=== PATIENT | female | born 1930 | race Caucasian/White ===

== ENCOUNTER 2018-09-09 12:36 | Emergency (ER) | payer MEDICARE ==
--- OUTSIDE RECORDS SUMMARY | 2018-09-09 12:54 | XMS REPORT | Continuity of Care Document ---
:1930 External Reference #:[id number] Author Name Brad Herrera M.D. Address [address] [facility] [place] [address] Care Team Providers Name Role Phone Corky Finn M.D. Primary Care Physician Unavailable Payers Date Identification Numbers Payment Provider Subscriber Policy Number: [id number] [employer] Lynette Hess PayID: [id number] [address] [place] [address] Problems Active Problems Provider Date Hearing problem Onset: Note: LEFT EAR Dyspnea Onset: Acid reflux Onset: Essential hypertension Onset: Rheumatoid arteritis Onset: Osteoporosis Onset: Headache Onset: Anxiety Onset: Pure hypercholesterolemia Onset: Atrial fibrillation Onset: Kidney stone Onset: Ocular hypertension Brad Herrera M.D. Onset: 09/07/2014 Pseudophakia Brad Herrera M.D. Onset: 09/07/2014 Benign neoplasm of choroid Brad Herrera M.D. Onset: 09/07/2014 Spinal stenosis Onset: Low back pain Onset: Degeneration of lumbar intervertebral disc Onset: Bilateral primary open angle glaucoma Brad Herrera M.D. Onset: 09/06/2017 FH: Glaucoma Brad Herrera M.D. Onset: 09/06/2017 Family History Date Family Member(s) Observation Comments General Heart Disease First Daughter Glaucoma First Sister Glaucoma Second Sister Glaucoma Social History Type Date Description Comments Sex Unknown Marital Status 10/2013 Legal Status: Occupation [employer] Work Status Retired ETOH Use Denies alcohol use Tobacco Use Start: Unknown Patient has never smoked Recreational Drug Use Denies Drug Use Smoking Status Reviewed: 08/23/18 Patient has never smoked Allergies, Adverse Reactions, Alerts Active Allergies Reaction Severity Comments Date Codeine 09/04/2014 Medications Active Medications SIG Qnty Indications Ordering Provider Date Aspirin Unknown 81mg Tablets Fiber Unknown Powder Simvastatin Unknown 20mg Tablets Refresh 2-3 times daily Brad Herrera, M.D. Metoprolol Succinate ER Maghaydah, Qutaybeh M.D. 25mg Tablets ER 24HR Benadryl Allergy as needed Unknown 25mg Tablets Eliquis Unknown 5mg Tablets Levothyroxine Sodium Unknown 25mcg Tablets Biotin Unknown 5mg Capsules History Medications Pred Forte One drop three 5ml H40.1131 Brad Herrera, 09/06/2017 - 1% times a day for M.D. 10/29/2017 Suspension three days OD, then three times a day for three days OS. Only after procedure. Fish Oil Brad Herrera, 09/04/2014 - 306mg M.D. 09/09/2017 Capsules Plavix Unknown - 75mg Tablets 09/06/2014 Valium as needed Unknown - 5mg Tablets 09/09/2017 Xarelto Unknown - 15mg 09/05/2017 Digoxin Unknown - 01/03/2016 Hydrocodone-Acetami Tish, Angela - nophen N.P. 09/09/2017 5-325mg Tablets Vital Signs Date Vital Result Comment 09/17/2017 3:41pm BP Systolic 136 mmHg BP Diastolic 72 mmHg Heart Rate 72 /min Respiratory Rate 15 /min 09/10/2017 12:49pm BP Systolic 132 mmHg BP Diastolic 74 mmHg Heart Rate 72 /min Respiratory Rate 18 /min Procedures Date Code Description Status 09/17/2017 74729 Trabeculoplasty By Laser Surgery Completed 09/10/2017 36500 Trabeculoplasty By Laser Surgery Completed 09/06/2017 07812 Scanning Computerized Ophthalmic Diagnostic Imag Posterior Completed Seg On 09/06/2017 91813 Visual Field Exam Extended Completed 09/06/2017 01589 Est Patient Comprehensive Exam Completed 12/21/2016 48422 Est Patient Intermediate Exam Completed 09/11/2016 00003 Scanning Computerized Ophthalmic Diagnostic Imag Posterior Completed Seg On 09/11/2016 19840 Visual Field Exam Extended Completed 09/11/2016 90299 Est Patient Intermediate Exam Completed 01/04/2016 30289 Fundus Photography With Interpretation And Report Completed 01/04/2016 51097 Est Patient Comprehensive Exam Completed 08/02/2015 93571 Scanning Computerized Ophthalmic Diagnostic Imag Posterior Completed Seg On 08/02/2015 29753 Visual Field Exam Extended Completed 08/02/2015 85934 Est Patient Comprehensive Exam Completed 09/07/2014 42564 Est Patient Intermediate Exam Completed 09/07/2014 29204 Determination Of Refractive State Completed 09/07/2014 76026 Gonioscopy Completed 12/09/2013 15839 Scanning Computerized Opthalmic Diagnostic Posterior Seg Completed Retina 12/09/2013 94588 Scanning Computerized Ophthalmic Diagnostic Imag Posterior Completed Seg On 12/09/2013 12259 Determination Of Refractive State Completed 12/09/2013 93507 Est Patient Comprehensive Exam Completed 12/05/2013 24765 Visual Field Exam Extended Completed 12/19/2012 64373 Est Patient Intermediate Exam Completed 09/03/2012 75763 Fundus Photography With Interpretation And Report Completed 09/03/2012 30872 Visual Field Exam Extended Completed 09/03/2012 70145 Est Patient Comprehensive Exam Completed 10/18/2011 44918 Visual Field Exam Extended Completed 08/15/2011 72400 Scanning Computerized Ophthalmic Diagnostic Imag Posterior Completed Seg On 08/15/2011 04029 Determination Of Refractive State Completed 08/15/2011 48496 Est Patient Comprehensive Exam Completed 10/04/2010 67588 Est Patient Intermediate Exam Completed 10/04/2010 33708 Visual Field Exam Extended Completed 01/05/2010 46457 Scanning Laser W/Interp And Report Completed 01/05/2010 66672 Determination Of Refractive State Completed 01/05/2010 42888 Est Patient Comprehensive Exam Completed 08/10/2009 34265 Visual Field Exam Extended Completed 08/10/2009 59693 Est Patient Intermediate Exam Completed 01/13/2009 15471 Scanning Laser W/Interp And Report Completed 01/13/2009 07302 Determination Of Refractive State Completed 01/13/2009 80393 Est Patient Comprehensive Exam Completed 08/19/2008 75558 Fundus Photography With Interpretation And Report Completed 08/19/2008 03673 Visual Field Exam Extended Completed 08/11/2008 65711 Est Patient Intermediate Exam Completed 09/11/2007 15664 Extracapsular Cataract Extraction W/Intraocular Lens Completed 09/05/2007 26129 Ophthalmic Biometry Completed 09/04/2007 86839 Extracapsular Cataract Extraction W/Intraocular Lens Completed 08/27/2007 57458 Ophthalmic Biometry Completed 08/22/2006 79774 Visual Field Exam Extended Completed 08/22/2006 83743 Determination Of Refractive State Completed 08/22/2006 09106 Est Patient Comprehensive Exam Completed 11/22/2005 48734 Visual Field Exam Extended Completed 09/20/2005 69035 Cancelled Appointment Completed 2005 66614 Determination Of Refractive State Completed 2005 06388 Est Patient Comprehensive Exam Completed 12/09/2004 81676 Gonioscopy Completed 12/09/2004 40043 Est Patient Intermediate Exam Completed 10/05/2004 01851 Scanning Laser W/Interp And Report Completed 10/05/2004 96024 Visual Field Exam Extended Completed 10/05/2004 24262 Pachymetry Completed 09/02/2004 90858 Fundus Photography With Interpretation And Report Completed 09/02/2004 65576 Determination Of Refractive State Completed 09/02/2004 86728 New Patient Comprehensive Exam Completed Encounters Type Date Location Provider Dx Diagnosis Office Visit 10/30/2017 Brad Mason, H40.1131 Primary 12:00p levi NG M.D. 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 Sclerosis / Cataract Plan of Treatment 08/23/2018 - Brad Herrera M.D.H40.4461 Primary open-angle glaucoma, bilateral, mild stageComments:Smoking can increase the risk of developing or worsening any eye related disease, as well as affect your overall health. If you are a smoker, we strongly recommend that you quit.If you are not a smoker, we strongly recommend that you do not start. Your glaucoma is stable at this time.Your eye pressure is within an acceptable range, and your testing does not show any further deterioration at this time. Please continue your treatment.Follow up:6 Month Follow Up IOP Check Diagnostic Refraction At your next visit, we are not planning to dilate your eyes. However, if you have any changes in your vision or new symptoms, there are certain situations that require us to dilate your eyes. If Dr. Herrera requests any additional testing, that may require extra time. If you have any questions before your next appointment, please call our office at .D48.116 Family history of glaucomaComments:Having a family history of glaucoma is a risk factor for the possibility of you developing glaucoma.However, having a family history does not mean you show any signs of glaucoma now, or will develop glaucoma in the future. It is important that you have a dilated eye exam annually, because even thoughglaucoma is a treatable disease, it does not present itself with any signs or symptoms.Z96.1 Presence of intraocular lensComments:The artificial lens implants in both eyes appear to be stable at this time.D31.31 Benign neoplasm of right choroidComments:You have a nevus in your right eye. This is similar to a mole on your skin. Typically this will not change, but I will monitor it.
--- OUTSIDE RECORDS SUMMARY | 2018-09-09 12:54 | XMS REPORT | Continuity of Care Document ---
:1930 External Reference #:[id number] Author Name Indiana Dupont, BRYAN Address [address] [facility] [place] [address] Care Team Providers Name Role Phone Corky Finn Care Team Information Veterinary Assistant Technician Unavailable Corky Finn Primary Care Physician Unavailable Payers Date Identification Numbers Payment Provider Subscriber Effective: 2017 Policy Number: [id number] [employer] Ppo Namita Hess Group Number: [id number] [id number] PayID: [id number] [place] [address] Problems Active Problems Provider Date Hyperlipidemia Corky Finn M.D. Onset: 10/18/2005 Arthropathy Corky Finn M.D. Onset: 10/18/2005 Benign essential hypertension Corky Finn M.D. Onset: 10/18/2005 Disorder of cardiovascular system Corky Finn M.D. Onset: 01/17/2006 Anxiety state Corky Finn M.D. Onset: 01/17/2006 Gastroesophageal reflux disease Corky Finn M.D. Onset: 01/17/2006 Cramp in limb Corky Finn M.D. Onset: 01/17/2006 Allergic rhinitis Corky Finn M.D. Onset: 09/10/2006 Constipation Corky Finn M.D. Onset: 12/26/2010 Low back pain Corky Finn M.D. Onset: 11/14/2011 Insomnia Corky Finn M.D. Onset: 11/14/2011 Enthesopathy of hip region Corky Finn M.D. Onset: 12/12/2011 Arthralgia of the lower leg Corky Finn M.D. Onset: 12/12/2011 Otolith disease Corky Finn M.D. Onset: 08/06/2012 Acute sinusitis Corky Finn M.D. Onset: 08/06/2012 Difficulty breathing Corky Finn M.D. Onset: 08/06/2012 Atrial fibrillation Corky Finn M.D. Onset: 10/27/2013 Solitary sacroiliitis Corky Finn M.D. Onset: 10/27/2013 Acute cholecystitis Corky Finn M.D. Onset: 01/06/2014 Hematuria syndrome Corky Finn M.D. Onset: 08/07/2014 Left lower quadrant pain Corky Finn M.D. Onset: 08/07/2014 Essential hypertension ALEX Estrella Onset: 10/21/2016 Otalgia Corky Finn M.D. Onset: 02/02/2017 Chronic atrial fibrillation Corky Finn M.D. Onset: 02/02/2017 Hypothyroidism Corky Finn M.D. Onset: 02/02/2017 Lumbar radiculopathy Corky Finn M.D. 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 Onset: 04/12/2018 Social History Type Date Description Comments Sex Unknown Marital Status Patient is Living Situation Patient lives alone, is going to move in with her granddaughter. Occupation Retired Tobacco Use Start: Unknown Nonsmoker ETOH Use Rare Tobacco Use Start: Unknown Patient has never smoked Allergies, Adverse Reactions, Alerts Active Allergies Reaction Severity Comments Date Codeine itching Darvocet-N 100 Itching 10/15/2008 Medications Active Medications SIG Qnty Indications Ordering Provider Date Doxycycline Hyclate 1 by mouth twice 14caps R05 Indianalawrence Brewster 09/05/2018 a day for cough BRYAN Dupont 100mg Capsules Valium 1 at at bedtime 30tabs F41.9 Corky Finn, 10/21/2016 5mg Tablets as needed M.D. G25.81 Synthroid 1 by mouth every 90tabs E03.8 Corky Finn, 07/20/2016 25mcg Tablets day M.D. Nitrostat 1 sl as needed, 25tabs 429.2 Corky Finn, 11/10/2014 0.4mg Tablets Sub repeat every 5 M.D. minutes up to three tabs, call 911 Fiber 1 po bid Unknown Tablets Biotin 1 po qd Unknown Tablets Eliquis take one tablet by Unknown 5mg Tablets mouth twice a day Benadryl Allergy 1 by mouth prn if Unknown 25mg needed repeat Tablets 3-4hrs after Toprol XL 1/2 po bid Unknown 25mg Tablets ER 24HR Aspirin 1 by mouth every Unknown 81mg Tablets day Simvastatin take one tablet by Unknown 20mg Tablets mouth at bedtime Fish Oil 1 po qd Unknown 1200mg Capsules History Medications Doxycycline Hyclate 1 by mouth twice 20caps R05 Corky Finn, 2018 - a day for cough M.D. 09/05/2018 100mg Capsules Benzonatate take 1 capsule by 30caps R05 Corky Finn, 04/12/2018 - 100mg mouth three times M.D. 09/05/2018 Capsules daily as needed for cough Azithromycin take 2 tablets by 6tabs R0Daphne Winston, 01/24/2018 - 250mg mouth today then [facility] 04/10/2018 Tablets take 1 tablet daily for next 4 days Betamethasone apply to affected 30gm L23.7 Indiana C. 02/08/2017 - Valerate skin twice daily BRYAN Dupont 11/07/2017 0.1% Cream for 2 weeks. Azithromycin take 2 tablets by 6tabs R0Daphne Winston, 10/21/2016 - 250mg mouth today then [employer]EL[employer] OPER[employer] 11/06/2016 Tablets take 1 tablet daily for next 4 days Hydrocodone-Acetamino 1 by mouth four 60tabs M54.5 Corky Finn, 2016 - phen times a day as M.D. 09/05/2018 5-325mg Tablets needed pain Cyclobenzaprine HCL 1 by mouth every 45tabs M54.5 Lucille Tish, 2015 - 5mg 6-8h during the [facility] 11/07/2017 Tablets day, 2 by mouth at bedtime as needed Amitriptyline HCL take 1 to 2 60tabs G47.09 Lucille Winston, 10/14/2015 - 10mg tablets by mouth [facility] 01/04/2016 Tablets at bedtime Hydrocodone-Acetamino 1 po qid prn pain 60tabs Corky Finn, 2014 - phen M.D. 10/14/2015 5-325mg Tablets Valium 1-2 three times a 180tabs M54.5 Lucille Winston, 10/26/2014 - 5mg Tablets day as needed [facility] 08/02/2016 Ciprofloxacin HCL 1 by mouth twice 20tabs Corky Finn, 08/11/2014 - 250mg a day M.D. 09/16/2014 Tablets Hydrocodone/Acetamino 1 po qid prn pain 60tabs Corky Finn, 2013 - phen M.D. 01/13/2015 5-325mg Tablets Hydrocodone/Acetamino 1-2 po qhs prn 60tabs Corky Finn, 09/18/2012 - phen pain M.D. 10/27/2013 5-500mg Tablets Meclizine HCL 1-2 tid prn 40tabs 386.19 Corky Finn, 08/06/2012 - 12.5mg dizziness or M.D. 10/27/2013 Tablets nausea Amoxicillin/Potassium 1 po bid 20tabs 461.8 Corky Finn, 08/06/2012 - Clavulanate M.D. 12/06/2012 500-125mg Tablets Melatonin CR 1 hs Corky Finn, 12/12/2011 - 3mg M.D. 12/06/2012 Tablets ER Hydrocodone/Acetamino 1-2 po qhs prn 60tabs Corky Finn, 12/12/2011 - phen pain M.D. 09/18/2012 5-325mg Tablets Medrol Dosepak as directed 1tabs Corky Finn, 12/12/2011 - 4mg M.D. 08/06/2012 Tablets Physical Therapy treatment and Corky Finn, 12/12/2011 - evaluation low M.D. 12/06/2012 back, rt hip and knee pain Gabapentin take 1 to 3 60caps Corky Finn, 11/14/2011 - 100mg capsules at M.D. 12/12/2011 Capsules bedtime for pain Prevacid OTC 1 po qd 530.81 [facility] 08/05/2009 - 15mg [facility] 10/14/[address] Kinney Nitroglycerin as directed 25tabs 429.2 Corky Finn, 01/07/2009 - 0.4mg M.D. 11/10/2014 Tablets Sub Macrobid 1 po bid 20caps Corky Finn, 01/01/2008 - 100mg Capsules M.D. 10/15/2008 Clotrimazole apply to affected 30gm Corky Finn, 01/01/2008 - 1% Cream area bid M.D. 08/05/2009 Cipro 1 PO bid X 10D 20tabs Lucille Winston, 11/22/2007 - 250mg Tablets [employer] 01/01/2008 Prevacid 1 po qd 90caps 530.81 Lucille Winston, 11/20/2007 - 30mg Capsules [employer]PERATOR 08/05/2009 Plavix 1 po qd 90tabs 429.2 Corky Finn, 08/28/2007 - 75mg Tablets M.D. 01/06/2014 Vytorin 1 po qd 90tabs 272.4 Corky Finn, 08/08/2007 - 10-80mg Tablets M.D. 11/14/2011 Prilosec-OTC 1 PO qd 30tabs Zita Aung, 05/07/2007 - 20mg Afnp-C 08/08/2007 Tablets Aciphex 1 tab qd 30tabs Zita Aung, 01/15/2007 - 20mg Tablets Afnp-C 05/07/2007 Quinine Sulfate 1 po qd prn 30tabs Zita Aung, 01/15/2007 - 260mg Afnp-C 08/28/2007 Tablets Ciprofloxacin 1 Tab bid X 7 14tabs 599.0 Zita Aung, 11/29/2006 - 250mg Days Afnp-C 12/06/2006 Tablets Plavix 1 po qd 0tabs [facility] 09/10/2006 - 75mg Tablets [facility] 09/10/2006 [place] Prevacid 1 po qd 0caps [facility] 09/10/2006 - 30mg Capsules [facility] 01/15/2007 [place] Cozaar 1 PO qd 0tabs [facility] 09/10/2006 - 25mg Tablets [facility] 08/28/2007 [place] Vytorin 1 po qhs 0tabs [facility] 02/01/2006 - 10mg;40 mg [facility] 08/08/2007 Tablets [place] Lisinopril 1 po qhs 30tabs Corky Finn, 01/17/2006 - 2.5mg M.D. 09/10/2006 Tablets Toprol XL 1 po bid 90tabs 401.1 Corky Finn, 01/17/2006 - 25mg Tablets M.D. 01/06/2014 Clopidogrel 1 PO qd 30units Corky Finn, 01/17/2006 - 75mg M.D. 08/28/2007 Vytorin 1 po qd 30tabs Corky Finn, 12/06/2005 - 10mg;20 mg M.D. 02/01/2006 Tablets Aciphex 1 po qd 30tabs Corky Finn, 01/23/2005 - 20mg Tablets M.D. 11/20/2007 Vosol HC Otic Drops 3-4 gtts each ear 10cc Corky Finn, 01/23/2005 - bid prn M.D. 01/17/2006 [facility] please do a lipid Corky Finn, 03/08/2004 - and liver profile M.D. 01/23/2005 for monitoring of cholesterol lowering medication Lipitor 1 po qd 30units Corky Finn, 02/04/2003 - 10mg M.D. 12/06/2005 Prevacid 1 PO qd Rios S. 12/17/2002 - 30mg Jefry, M.D. 01/23/2005 Cortisporin Otic 3-4 gtts ears tid 1Bkennedy Winston, 10/23/2002 - x 4-5 days PIPELINE OPERATOR 08/05/2009 Solution Zithromax 2 Tabs Day 1 6units Corky Villanueva Aakash, 07/28/2002 - 250mg Brad.DGerald 10/23/2002 1 Tab qd Days 2 Thru 5 Mycolog II Apply bid To 30gm Haroon SalinasGerald 12/12/2000 - Ointment Effected Area Tari Paris 02/03/2002 Soma 1 PO qid prn 30units Haroon SalinasGerald 12/12/2000 - 350mg Tari Paris 01/11/2001 Muscle Spasm Cortisporin Otic 3-4 gtts Both 15cc Haroon SalinasGerald 10/15/2000 - Eyes tid X 4-5 Tari Paris 02/03/2002 Solution Days Septra DS 1 PO bid 20units Haroon SalinasGerald 07/01/1999 - Tari Paris 07/11/1999 Zoloft 1 qam Samples Haroon SalinasGerald 06/27/1999 - 25mg Tari Paris 09/15/1999 Ec-Naproxen 1 po tid prn 90units Brad Blanca 04/19/1999 - 375mg Tab Tari Carey 07/22/2004 Antivert 1-2 tid prn 30units Romeo FGerald 02/25/1999 - 12.5mg ShallTari short 04/19/1999 Zithromax 2 Tabs Day 1 6unboyd [place]Gerald 01/26/1999 - 250mg Tari Paris 01/31/1999 1 Tab qd Days 2 Thru 5 Zithromax 2 Tabs Day 1 6unboyd [place]Gerald 11/22/1998 - 250mg Tari Paris 11/27/1998 1 Tab qd Days 2 Thru 5 Entex Pse 1 bid prn 20units Haroon SalinasGerald 11/22/1998 - Congestion Tari Paris 12/02/1998 Ec-Naproxen One tid For One 50unboyd SalinasGerald 08/10/1998 - 375mg Tab Week The tid prn Tari Paris 08/30/1998 Hip Pain Patanol Eye gtts 1-2 gtts bid 1Bottle Tari 07/26/1998 - Kamlesh Mendez-C 08/02/1998 Septra DS 1 PO bid 20units Haroon M. 06/21/1998 - Tari Paris 07/01/1998 Ceftin PO bid 20units Haroon Chelsey 05/03/1998 - 250mg Samples Tari Paris 05/13/1998 Robitussin ac 1-2 TSP PO Q4H 4Oz Haroon Barbosa 04/24/1998 - prn Cough Tari Paris 07/29/1998 Zithromax 2 Tabs Day 1 6units Rios S. 04/21/1998 - 250mg JefryTari drake 05/01/1998 1 Tab qd Days 2 Thru 5 Zyrtec 1 PO qd prn 30tabs Haroon Barbosa 02/16/1998 - 10mg Tabs Tari Paris 04/19/1999 Darvocet N 100 With 1 qid prn 60units Corky Finn, 12/16/1997 - Magdy Marc 10/15/2008 100mg/65O 0 Physical Therapy Evaluation And Haroon Barbosa 12/15/1997 - Treatment For Tari Paris 07/29/1998 Torn Rotator Cuff Tear Fiorinal 1 Q 4 HR 20units Haroon Barbosa 06/29/1997 - Tari Paris 05/06/1998 Pepcid 1 PO prn 0units Haroon Barbosa 06/03/1997 - ac Tari Paris 12/17/2002 Quinine Sulfate 1 qhs prn 30units Corky Finn, 05/04/1997 - 260mg Tari 09/10/2006 Keflex 1 PO tid 30units Haroon Barbosa 12/09/1996 - 5Oomg Tari Paris 06/03/1997 Pravachol One qd 0units Haroon Barbosa 12/09/1996 - 20mg Tab Tari Paris 05/06/1998 Motrin 1 PO tid prn 100units Haroon Barbosa 12/09/1996 - 800mg. Tari Paris 04/19/1999 Valium 1-2 tid prn 180tabs Corky Finn 12/09/1996 - 5mg Tablets M.DGerald 09/20/2014 Zantac Take One Tab 0unboyd SalinasGerald 12/09/1996 - 150mg. Twice A Day Tari Paris 06/03/1997 Cortisporin Otic 4 gtts tid To 1Bottalexis SalinasGerald 12/02/1996 - Right Ear Tari Paris 04/19/1999 Penicillin VK 1 PO tid 15unboyd SalinasGerald 12/02/1996 - 250mg Tari Paris 12/07/1996 Aspirin Unknown - 325mg Tablets 01/06/2014 Simvastatin 1 po qd 90tabs Unknown - 80mg 01/06/2014 Tablets Lutein 1 po qd Unknown - 20mg Capsules 01/06/2014 Digoxin 1 by mouth every Unknown - 125mcg Tablets day 10/14/2015 Xarelto 1 by mouth every Unknown - 20mg Tablets day 11/10/2014 Xarelto 1 po qd Unknown - 15mg Tablets 11/14/2017 Tramadol HCL 1 by mouth every 60tabs M54.5 Lucille Winston, - 50mg 12 hours as PIPELINE OPERATOR 01/24/2018 Tablets needed Immunizations CPT Code Status Date Vaccine Lot # [id number] Given 01/07/2008 DO Not Use Split Influenza Virus Vaccine [id number] 57989 Given 01/15/2007 DO Not Use Split Influenza Virus Vaccine [id number] 69893 Given 01/17/2006 DO Not Use Split Influenza Virus Vaccine [id number] 58470 Given 01/23/2005 DO Not Use Split Influenza Virus Vaccine 95059 Given 12/17/2002 Pneumococcal Immunization 83958 Given 12/17/2002 DO Not Use Split Influenza Virus Vaccine 71448 Given 02/03/2002 Influenza Immunization 64582 Given 02/03/2002 DO Not Use Split Influenza Virus Vaccine 70127 Given 01/09/2001 DO Not Use Split Influenza Virus Vaccine 96426 Given 01/09/2001 Influenza Immunization 12139 Given 01/05/2000 DO Not Use Split Influenza Virus Vaccine 58568 Given 01/03/1999 Influenza Immunization 43321 Given 01/03/1999 DO Not Use Split Influenza Virus Vaccine 66332 Given 06/21/1998 Td Immunization, For Use In Individuals 7 Years Or Older 50605 Given 06/21/1998 DTP Immunization 08244 Given 12/22/1997 Influenza Immunization 44161 Given 12/30/1996 Influenza Immunization Vital Signs Date Vital Result Comment 09/05/2018 6:39pm BP Systolic 126 mmHg BP Diastolic 84 mmHg Heart Rate 76 /min Body Temperature 98.7 F Respiratory Rate 16 /min Height 62.75 inches 5'2.75" Weight 149.00 lb BMI (Body Mass Index) 26.6 kg/m2 04/12/2018 1:00pm BP Systolic 118 mmHg BP Diastolic 68 mmHg Heart Rate 84 /min Body Temperature 97.7 F Respiratory Rate 16 /min Height 62.75 inches 5'2.75" Weight 152.25 lb BMI (Body Mass Index) 27.2 kg/m2 01/24/2018 10:59am BP Systolic 116 mmHg BP Diastolic 84 mmHg Heart Rate 90 /min Body Temperature 97.1 F Respiratory Rate 18 /min Height 62.75 inches 5'2.75" Weight 157.25 lb BMI (Body Mass Index) 28.1 kg/m2 11/14/2017 9:11am BP Systolic 126 mmHg BP Diastolic 76 mmHg Heart Rate 84 /min Body Temperature 96.8 F Respiratory Rate 16 /min Height 62.75 inches 5'2.75" Weight 161.12 lb BMI (Body Mass Index) 28.8 kg/m2 02/08/2017 1:59pm BP Systolic 112 mmHg BP Diastolic 64 mmHg Heart Rate 64 /min Body Temperature 98.1 F Height 62.75 inches 5'2.75" Weight 163.00 lb BMI (Body Mass Index) 29.1 kg/m2 02/02/2017 11:53am BP Systolic 120 mmHg BP Diastolic 70 mmHg Heart Rate 84 /min Body Temperature 97.3 F Respiratory Rate 16 /min Weight 161.00 lb 10/21/2016 9:15am BP Systolic 118 mmHg BP Diastolic 60 mmHg Heart Rate 66 /min Body Temperature 97.7 F Respiratory Rate 16 /min Weight 162.38 lb 08/03/2016 2:31pm BP Systolic 116 mmHg BP Diastolic 74 mmHg Heart Rate 72 /min Body Temperature 98.6 F Respiratory Rate 16 /min Weight 157.50 lb 10/14/2015 12:56pm BP Systolic 126 mmHg BP Diastolic 70 mmHg Heart Rate 62 /min Body Temperature 97.6 F Respiratory Rate 16 /min Weight 148.00 lb 11/10/2014 12:52pm BP Systolic 120 mmHg BP Diastolic 60 mmHg Heart Rate 56 /min Body Temperature 98.5 F Respiratory Rate 16 /min Weight 146.12 lb 09/16/2014 2:15pm BP Systolic 120 mmHg BP Diastolic 70 mmHg Heart Rate 60 /min Body Temperature 98.2 F Respiratory Rate 16 /min Weight 148.00 lb 08/07/2014 12:43pm BP Systolic 126 mmHg BP Diastolic 80 mmHg Heart Rate 66 /min Body Temperature 96.8 F Respiratory Rate 16 /min Weight 147.50 lb 01/06/2014 7:23pm BP Systolic 104 mmHg BP Diastolic 76 mmHg Heart Rate 68 /min Body Temperature 99.2 F Respiratory Rate 16 /min Height 62.75 inches 5'2.75" Weight 151.25 lb BMI (Body Mass Index) 27.0 kg/m2 10/27/2013 3:05pm BP Systolic 124 mmHg BP Diastolic 82 mmHg Heart Rate 92 /min Body Temperature 98.4 F Respiratory Rate 16 /min Height 62.75 inches 5'2.75" Weight 152.38 lb BMI (Body Mass Index) 27.2 kg/m2 12/06/2012 9:43am BP Systolic 134 mmHg BP Diastolic 72 mmHg Heart Rate 60 /min Body Temperature 97.6 F Respiratory Rate 16 /min Height 62.75 inches 5'2.75" Weight 164.50 lb BMI (Body Mass Index) 29.4 kg/m2 08/06/2012 12:59pm BP Systolic 118 mmHg BP Diastolic 60 mmHg Heart Rate 76 /min Body Temperature 98.2 F Respiratory Rate 18 /min Height 62.75 inches 5'2.75" Weight 166.00 lb BMI (Body Mass Index) 29.6 kg/m2 12/13/2011 9:20am BP Systolic 120 mmHg BP Diastolic 70 mmHg Heart Rate 66 /min Body Temperature 97.4 F Respiratory Rate 22 /min Height 62.75 inches 5'2.75" Weight 164.00 lb BMI (Body Mass Index) 29.3 kg/m2 12/12/2011 9:32am BP Systolic 138 mmHg BP Diastolic 76 mmHg Heart Rate 66 /min Body Temperature 97.7 F Height 62.75 inches 5'2.75" Weight 165.00 lb BMI (Body Mass Index) 29.5 kg/m2 11/14/2011 10:58am BP Systolic 110 mmHg BP Diastolic 76 mmHg Heart Rate 66 /min Body Temperature 97.1 F Height 62.75 inches 5'2.75" Weight 162.00 lb BMI (Body Mass Index) 28.9 kg/m2 12/26/2010 3:55pm BP Systolic 110 mmHg BP Diastolic 70 mmHg Heart Rate 78 /min Height 62.75 inches 5'2.75" Weight 166.00 lb BMI (Body Mass Index) 29.6 kg/m2 08/05/2009 9:53am BP Systolic 130 mmHg BP Diastolic 74 mmHg Heart Rate 78 /min Body Temperature 97.8 F Height 62.75 inches 5'2.75" Weight 166.00 lb BMI (Body Mass Index) 29.6 kg/m2 01/07/2009 10:33am BP Systolic 132 mmHg BP Diastolic 84 mmHg Heart Rate 72 /min Body Temperature 95.9 F Height 62.75 inches 5'2.75" Weight 164.00 lb BMI (Body Mass Index) 29.3 kg/m2 10/15/2008 1:30pm BP Systolic 118 mmHg BP Diastolic 68 mmHg Heart Rate 72 /min Body Temperature 98.5 F Height 62.75 inches 5'2.75" Weight 160.00 lb BMI (Body Mass Index) 28.6 kg/m2 01/01/2008 8:31am BP Systolic 124 mmHg BP Diastolic 70 mmHg Heart Rate 66 /min Body Temperature 98.0 F Height 62.75 inches 5'2.75" Weight 160.00 lb BMI (Body Mass Index) 28.6 kg/m2 11/20/2007 11:36am BP Systolic 136 mmHg BP Diastolic 70 mmHg Heart Rate 76 /min Height 62.75 inches 5'2.75" Weight 159.00 lb BMI (Body Mass Index) 28.4 kg/m2 08/28/2007 9:49am BP Systolic 140 mmHg BP Diastolic 74 mmHg Heart Rate 60 /min Body Temperature 97.8 F Respiratory Rate 16 /min Height 62.75 inches 5'2.75" Weight 160.00 lb BMI (Body Mass Index) 28.6 kg/m2 01/15/2007 8:51am BP Systolic 146 mmHg BP Diastolic 82 mmHg Heart Rate 76 /min Body Temperature 97.9 F Height 62.5 inches 5'2.50" Weight 154.00 lb BMI (Body Mass Index) 27.7 kg/m2 11/29/2006 1:37pm BP Systolic 142 mmHg BP Diastolic 88 mmHg Heart Rate 82 /min Height 62.5 inches 5'2.50" Weight 152.00 lb BMI (Body Mass Index) 27.4 kg/m2 09/10/2006 2:57pm BP Systolic 116 mmHg BP Diastolic 60 mmHg Heart Rate 66 /min Body Temperature 98.2 F Height 62.5 inches 5'2.50" Weight 149.50 lb BMI (Body Mass Index) 26.9 kg/m2 02/01/2006 1:37pm BP Systolic 120 mmHg BP Diastolic 62 mmHg Heart Rate 56 /min Height 62.5 inches 5'2.50" 01/17/2006 2:08pm BP Systolic 126 mmHg BP Diastolic 64 mmHg Heart Rate 60 /min Height 62.5 inches 5'2.50" Weight 151.00 lb BMI (Body Mass Index) 27.2 kg/m2 10/18/2005 9:41am BP Systolic 154 mmHg BP Diastolic 80 mmHg Heart Rate 80 /min Height 62.5 inches 5'2.50" Weight 156.00 lb BMI (Body Mass Index) 28.1 kg/m2 01/23/2005 9:42am BP Systolic 134 mmHg BP Diastolic 86 mmHg Heart Rate 68 /min Height 62.5 inches 5'2.50" Weight 152.00 lb BMI (Body Mass Index) 27.4 kg/m2 07/22/2004 9:02am BP Systolic 126 mmHg BP Diastolic 76 mmHg Heart Rate 72 /min Height 62.5 inches 5'2.50" Weight 151.00 lb BMI (Body Mass Index) 27.2 kg/m2 12/04/2003 2:36pm BP Systolic 120 mmHg BP Diastolic 66 mmHg Heart Rate 72 /min Height 62.5 inches 5'2.50" Weight 156.00 lb BMI (Body Mass Index) 28.1 kg/m2 12/17/2002 11:11am BP Systolic 128 mmHg BP Diastolic 82 mmHg Heart Rate 74 /min Height 62.5 inches 5'2.50" Weight 155.00 lb BMI (Body Mass Index) 27.9 kg/m2 10/23/2002 9:54am BP Systolic 122 mmHg BP Diastolic 82 mmHg Heart Rate 80 /min Height 62.5 inches 5'2.50" Weight 152.00 lb BMI (Body Mass Index) 27.4 kg/m2 07/28/2002 7:56pm BP Systolic 150 mmHg BP Diastolic 80 mmHg Heart Rate 80 /min Body Temperature 97.6 F Height 62.5 inches 5'2.50" Weight 150.00 lb BMI (Body Mass Index) 27.4 kg/m2 02/03/2002 2:37pm BP Systolic 140 mmHg BP Diastolic 82 mmHg Heart Rate 68 /min Height 62.5 inches 5'2.50" Weight 150.00 lb BMI (Body Mass Index) 27.4 kg/m2 12/23/2001 9:21am BP Systolic 124 mmHg BP Diastolic 70 mmHg Heart Rate 80 /min Height 62.5 inches 5'2.50" Weight 152.50 lb BMI (Body Mass Index) 27.9 kg/m2 10/15/2001 11:09am BP Systolic 140 mmHg BP Diastolic 80 mmHg Body Temperature 97.8 F With Asa Height 62.5 inches 5'2.50" Weight 152.00 lb BMI (Body Mass Index) 27.8 kg/m2 01/30/2001 2:42pm BP Systolic 120 mmHg BP Diastolic 70 mmHg Heart Rate 64 /min Height 62.5 inches 5'2.50" Weight 150.00 lb BMI (Body Mass Index) 27.4 kg/m2 12/12/2000 10:48am BP Systolic 130 mmHg BP Diastolic 80 mmHg Heart Rate 78 /min Height 62.5 inches 5'2.50" Weight 149.00 lb BMI (Body Mass Index) 27.2 kg/m2 11/12/2000 4:29pm BP Systolic 120 mmHg BP Diastolic 70 mmHg Heart Rate 72 /min Body Temperature 96.8 F Height 62.5 inches 5'2.50" Weight 149.00 lb BMI (Body Mass Index) 27.2 kg/m2 09/15/1999 7:33pm BP Systolic 122 mmHg LA SM Cuff BP Diastolic 66 mmHg LA SM Cuff Heart Rate 64 /min Reg Body Temperature 97.2 F Height 62.5 inches 5'2.50" Weight 138.00 lb BMI (Body Mass Index) 25.2 kg/m2 06/27/1999 10:56am BP Systolic 108 mmHg LA SM Cuff BP Diastolic 70 mmHg LA SM Cuff 06/01/1999 9:59am BP Systolic 102 mmHg LA SM Cuff BP Diastolic 70 mmHg LA SM Cuff Weight 148.00 lb 04/19/1999 11:28am BP Systolic 110 mmHg LA SM Cuff BP Diastolic 66 mmHg LA SM Cuff 02/25/1999 2:30pm BP Systolic 110 mmHg LA SM Cuff BP Diastolic 70 mmHg LA SM Cuff 01/26/1999 11:30am BP Systolic 108 mmHg BP Diastolic 62 mmHg Body Temperature 97.0 F Weight 142.25 lb 11/22/1998 12:57pm BP Systolic 130 mmHg LA SM Cuff BP Diastolic 72 mmHg LA SM Cuff Weight 144.00 lb 07/29/1998 11:02am Body Temperature 97.6 F 07/26/1998 3:55pm Body Temperature 97.6 F 05/06/1998 10:25am Body Temperature 97.0 F 05/03/1998 2:50pm Body Temperature 97.7 F 04/24/1998 10:31am Body Temperature 98.1 F 04/21/1998 12:04pm Body Temperature 97.6 F 06/29/1997 12:55pm BP Systolic 136 mmHg BP Diastolic 90 mmHg Body Temperature 97.4 F Height 63.50 inches 5'3.50" Weight 166.00 lb 06/03/1997 12:00am BP Systolic 100 mmHg BP Diastolic 70 mmHg Height 63.50 inches 5'3.50" Weight 159.00 lb With Boots 12/09/1996 12:00am BP Systolic 118 mmHg BP Diastolic 80 mmHg Body Temperature 97.6 F Weight 154.00 lb Results Test Date Facility Test Result H/L Range Note CBC Electronic a 01/24/2018 [facility]) WBC 9.3 x10^3/UL 4.0- 10.0 RBC 4.74 x10^6/UL 3.93-6.00 HGB 14.8 g/dL 12.0-17.0 HCT 44 % 35-50 MCV 93.2 fL 80.0-95.0 MCH 31.2 pg 25.6-32.2 MCHC 33.5 g/dL 32.2-36.0 RDW-CV 12.0 % 11.6-14.4 PLT 228 x10^3/UL 163-400 MPV 9.3 fL Low 9.4-12.4 Marah# 4.42 x10^3/UL 1.56-6.13 Lymph# 3.87 x10^3/UL High 1.18-3.74 [facility]# 0.80 x10^3/UL 0.24-0.82 Eos # 0.2 x10^3/UL 0.0-0.5 Baso # 0.06 x10^3/UL 0.01-0.08 Marah% 47.4 % 34.0-70.0 Lymph % 41.5 % 20.0-52.0 [place]% 8.6 % 5.0-12.0 Eos% 1.7 % 0.7-7.0 Baso% 0.6 % 0.1-1.2 Comprehensive Metabolic 01/24/2018 Dennis Kerr([facility]) Sodium 140 mEq/L 134-149 Prof Potassium 4.5 mEq/L 3.6-5.5 Chloride 104 mEq/L 94-112 Carbon Dioxide 27 mEq/L 21-32 Glucose 121 mg/dL High 70-105 BUN 18 mg/dL 6-26 Creatinine 1.1 mg/dL 0.6-1.4 BUN/Creat Ratio 16.4 CALC 8.0-36.0 Calcium 9.6 mg/dL 8.6-10.2 Total Protein 6.5 g/dL 6.4-8.3 Albumin 4.1 g/dL 3.8-5.5 Globulin 2.4 g/dL 2.0-4.8 A/G Ratio 1.7 CALC 0.6-2.3 Alk. Phosphatase 83 U/L 30-110 Alt (SGPT) 31 U/L 7-35 Ast (Sgot) 22 U/L 5-34 Total Bilirubin 1.1 mg/dL 0.2-1.3 GFR Non- 50 ml/min/1.73m^ Low >=60 GFR 60 ml/min/1.73m^ >=60 Laboratory test finding 01/24/2018 Dennis Kerr([facility]) TSH 2.86 mIU/L 0.50-6.00 Free T4 1.36 ng/dL 0.75-1.54 Free T3 2.37 pg/mL 2.00-4.90 Lipid Profile 01/24/2018 Dennis Kerr(a) Cholesterol 272 mg/dL High 120-200 Triglycerides 164 mg/dL 30-200 HDL Cholesterol 46 mg/dL 30-85 LDL (Calculated) 193 CALC High 0-129 VLDL Cholesterol 33 mg/dL 0-50 HDL Risk Factor 5.9 CALC High 0.0-4.4 Laboratory test finding 02/02/2017 Dennis Kerr([facility]) TSH 3.59 mIU/L 0.50-6.00 Free T4 1.01 ng/dL 0.75-1.54 1 Comprehensive Metabolic 10/21/2016 Dennis Usha([facility]) Sodium 142 mEq/L 134-149 Prof Potassium 4.6 mEq/L 3.6-5.5 Chloride 100 mEq/L 94-112 Carbon Dioxide 27 mEq/L 21-32 Glucose 148 mg/dL High 70-105 BUN 9 mg/dL 6-26 Creatinine 0.9 mg/dL 0.6-1.4 BUN/Creat Ratio 10.0 CALC 8.0-36.0 Calcium 9.5 mg/dL 8.6-10.2 Total Protein 6.4 g/dL 6.4-8.3 Albumin 4.1 g/dL 3.8-5.5 Globulin 2.3 g/dL 2.0-4.8 A/G Ratio 1.8 CALC 0.6-2.3 Alk. Phosphatase 94 U/L 30-110 Alt (SGPT) 39 U/L High 7-35 Ast (Sgot) 39 U/L High 5-34 Total Bilirubin 0.6 mg/dL 0.2-1.3 GFR Non- >60 ml/min/1.73m^ >=60 GFR >60 ml/min/1.73m^ >=60 Laboratory test 10/21/2016 Dennis Kerr([facility]) Free T4 0.85 ng/dL 0.75- 1.54 finding Free T3 2.71 pg/mL 2.00-4.90 Lipid Profile 10/21/2016 Dennis Kerr([facility]) Cholesterol 160 mg/dL 120- 200 Triglycerides 192 mg/dL 30-200 HDL Cholesterol 41 mg/dL 30-85 LDL (Calculated) 81 CALC 0-129 VLDL Cholesterol 38 mg/dL 0-50 HDL Risk Factor 3.9 CALC 0.0-4.4 Laboratory test 10/21/2016 Dennis Kerr([facility]) TSH 6.97 mIU/L High 0.50- 6.00 2 finding CBC Electronic ([facility]) 10/21/2016 Family Medicine WBC 10.3 High 3.6-9.6 (607)- - RBC 4.68 3.90-5.70 Hemoglobin (Fma/CMC/CTX) 14.9 g/dL 12.1 - 17.2 Hematocrit (Fma/CMC/CTX) 43.8 % 36.1 - 50.3 Platelets 227 10^3/ul 150-400 Lymph% 36.8 % 17.0-48.0 Mixed% 6.0 Neutrophils % 57.2 Mean Corpuscular Vol 94 82.2-97.4 Mean Corpuscular Hemoglobin 31.8 27.6-33.3 Mean Corpuscular Hemo Concen 34.0 32.0-36.0 RDW 13.4 11.6-13.7 Mean Platelet Volume 6.5 5.5-11.0 Comprehensive Metabolic 11/10/2014 Dennis Kerr([facility]) Sodium 140 mEq/L 134-149 Prof Potassium 4.4 mEq/L 3.6-5.5 Chloride 101 mEq/L 94-112 Carbon Dioxide 30 mEq/L 21-32 Glucose 105 mg/dL 70-105 BUN 10 mg/dL 6-26 Creatinine 0.9 mg/dL 0.6-1.4 BUN/Creat Ratio 11.1 CALC 8.0-36.0 Calcium 9.3 mg/dL 8.6-10.2 Total Protein 6.5 g/dL 6.4-8.3 Albumin 3.9 g/dL 3.8-5.5 Globulin 2.6 g/dL 2.0-4.8 A/G Ratio 1.5 CALC 0.6-2.3 Alk. Phosphatase 98 U/L 30-110 Alt (SGPT) 28 U/L 7-35 Ast (Sgot) 29 U/L 5-34 Total Bilirubin 0.9 mg/dL 0.2-1.3 Lipid Profile 11/10/2014 Dennis Usha(a) Cholesterol 160 mg/dL 120- 200 Triglycerides 274 mg/dL High 30-200 HDL Cholesterol 30 mg/dL 30-85 LDL (Calculated) 75 CALC 0-129 VLDL Cholesterol 55 mg/dL High 0-50 HDL Risk Factor 5.3 CALC High 0.0-4.4 Laboratory test 11/10/2014 Dennis Usha([facility]) LDL, Direct 83 mg/dL 0- 130 finding CBC Electronic (a) 11/10/2014 [facility] Medicine WBC 9.1 3.6-9.6 (607)- - RBC 4.60 3.90-5.70 Hemoglobin (Fma/CMC/CTX) 14.5 g/dL 12.1 - 17.2 Hematocrit (Fma/CMC/CTX) 42.7 % 36.1 - 50.3 Platelets 240 10^3/ul 150-400 Lymph% 39.3 % 17.0-48.0 Mixed% 5.3 Neutrophils % 55.4 Mean Corpuscular Vol 93 82.2-97.4 Mean Corpuscular Hemoglobin 31.5 27.6-33.3 Mean Corpuscular Hemo Concen 34.0 32.0-36.0 RDW 14.0 High 11.6-13.7 Mean Platelet Volume 6.5 5.5-11.0 Laboratory test finding 10/12/2014 [facility] Inr/Protime 0.94 N 0.78-1.07 Ua - Non Micro (a) 09/16/2014 [facility] Appearance CLEAR (607)- - Color YELLOW Glucose, Urine (Fma/CMC/CTX) NEG Bilirubin SMALL # QNS For Icto Tet Ketones TRACE # SP Grav >=1.030 Blood LARGE # QNS For Micro PH 5.5 Protein 30mg/dL High QNS For Ssa Test Urobil 0.2 Nitrite NEG Leukocytes (Fma/CMC/[facility]) NEG Laboratory test 08/07/2014 [facility] Urine Culture Escherichia coli 3 finding [address] [place] [address] [phone] Ua - Micro (Fma) 08/07/2014 [facility] Medicine Appearance CLOUDY (607)- - Color BROWN Glucose, Urine (Fma/CMC/CTX) NEG Bilirubin ICTO:NEG Ketones NEG SP Grav >=1.030 Blood LARGE # PH 6.0 Protein SSA:TRACE # Urobil 1.0 Nitrite NEG Leukocytes (Fma/CMC/[facility]) NEG Hyaline - /Lpf Granular - /Lpf WBC (Fma,[facility]) 3-5 # RBC >100 # Mucus (Fma/CBC/[facility]) - /Lpf Epith RARE /Lpf # Bacteria TRACE-1+ /Hpf # Amorphous (Fma/CMC/[facility]) - /Lpf Crystals, Fluid (Fma/CMC/CTX) - Z#Comments - Urinalysis Profile 12/27/2013 [facility] Urine Color Yellow N Urine Appearance Clear N Urine Specific Sherman 1.014 N 1.010-1.030 Urine pH 5.0 N 5-9 Urine Urobilinogen Negative N Negative Urine Ketones Trace Abnormal Negative Urine Protein Negative N Negative Urine Leukocytes Negative N Negative Urine Blood 2+ Abnormal Negative Urine Nitrite Negative N Negative Urine Bilirubin Negative N Negative Urine Glucose Negative N Negative Urine White Blood Cell Trace N Absent Urine Red Blood Cell 2+(6-10/hpf) Abnormal Absent Urine Bacteria Absent N Absent Urine Squamous Epithelial Cell Present Abnormal Absent CBC Auto Diff 12/27/2013 [facility] White Blood Count 13.7 10^3/uL High 4.8- 10.8 Red Blood Count 4.61 10^6/uL N 4.0-5.4 Hemoglobin 14.3 g/dL N 12.0-16.0 Hematocrit 42 % N 35-47 Mean Corpuscular Volume 92 fL N 80-97 Mean Corpuscular Hemoglobin 31 pg N 27-31 Mean Corpuscular HGB Conc 34 g/dL N 31-36 Red Cell Distribution Width 13 % N 10.5-15 Platelet Count 259 10^3/uL N 150-450 Mean Platelet Volume 8 um3 N 7.4-10.4 Abs Neutrophils 9.3 10^3/uL High 1.5-7.7 Abs Lymphocytes 3.2 10^3/uL N 1.0-4.8 Abs Monocytes 0.9 10^3/uL High 0-0.8 Abs Eosinophils 0.1 10^3/uL N 0-0.6 Abs Basophils 0.1 10^3/uL N 0-0.2 Abs Nucleated RBC 0 10^3/uL N Granulocyte % 68.0 % N 38-83 Lymphocyte % 23.7 % Low 25-47 Monocyte % 6.3 % N 1-9 Eosinophil % 1.1 % N 0-6 Basophil % 0.9 % N 0-2 Nucleated Red Blood Cells % 0 N Inr/Protime 12/27/2013 [facility] Inr 0.97 N 0.85-1.06 Laboratory test finding 12/27/2013 [facility] B Type Natriuretic 148 pg/mL N 4 Peptide Comp Metabolic Panel 12/27/2013 [facility] Sodium 138 mmol/L N 133-145 Potassium 4.2 mmol/L N 3.7-5.6 Chloride 105 mmol/L N 101-111 Co2 Carbon Dioxide 25 mmol/L N 22-32 Anion Gap 8 mmol/L N 2-11 Glucose 146 mg/dL High 70-100 Blood Urea Nitrogen 17 mg/dL N 6-24 Creatinine 1.11 mg/dL High 0.51-0.95 BUN/Creatinine Ratio 15.3 N 8-20 Calcium 9.3 mg/dL N 8.6-10.3 Total Protein 7.2 g/dL N 6.4-8.9 Albumin 4.2 g/dL N 3.2-5.2 Globulin 3.0 g/dL N 2-4 Albumin/Globulin Ratio 1.4 N 1-3 Total Bilirubin 1.30 mg/dL High 0.2-1.0 Alkaline Phosphatase 102 U/L N 34-104 Alt 28 U/L N 7-52 Ast 51 U/L High 13-39 Egfr Non- 46.9 N >60 Egfr 60.4 N >60 5 Laboratory test finding 12/27/2013 [facility] Lipase 14 U/L N 11.0-82.0 Troponin I 0.00 ng/mL N <0.03 6 C Reactive Protein 2.84 mg/L N < 5.00 7 Comprehensive Metabolic 10/29/2013 Collins Usha(fma) Sodium 145 mEq/L 134-149 Prof Potassium 4.3 mEq/L 3.6-5.5 Chloride 107 mEq/L 94-112 Carbon Dioxide 28 mEq/L 21-32 Glucose 101 mg/dL 70-105 BUN 16 mg/dL 6-26 Creatinine 1.2 mg/dL 0.6-1.4 BUN/Creat Ratio 13.3 CALC 8.0-36.0 Calcium 9.0 mg/dL 8.6-10.2 Total Protein 6.6 g/dL 6.3-8.1 Albumin 4.1 g/dL 3.8-5.5 Globulin 2.5 g/dL 2.0-4.8 A/G Ratio 1.6 CALC 0.6-2.3 Alk. Phosphatase 76 U/L 30-110 Alt (SGPT) 25 U/L 7-35 Ast (Sgot) 25 U/L 5-34 Total Bilirubin 0.8 mg/dL 0.2-1.3 Lipid Profile 10/29/2013 Collins Usha([facility]) Cholesterol 178 mg/dL 120- 200 Triglycerides 196 mg/dL 30-200 HDL Cholesterol 38 mg/dL 30-85 LDL (Calculated) 101 CALC 0-129 VLDL Cholesterol 39 mg/dL 0-50 HDL Risk Factor 4.7 CALC High 0.0-4.4 Complete Blood Count 10/29/2013 Dennis Kerr(fma) WBC 8.1 x10^3/UL 3.6 -9.6 RBC 5.24 x10^6/UL 3.90-5.70 HGB 14.7 g/dL 12.1-17.2 HCT 49 % 36-50 MCV 94.0 fL 82.2-97.4 MCH 28.0 pg 27.6-33.3 MCHC 29.9 g/dL Low 33.0-35.5 RDW 12.6 % 11.6-13.7 PLT 375 x10^3/UL 150-400 MPV 8.6 fL 7.4-10.4 Gran # 3.4 x10^3/UL 1.5-7.2 Lymph# 4.3 x10^3/UL 0.7-4.9 [place]# 0.4 x10^3/UL 0.1-0.9 Gran % 41.3 % Low 42.2-75.2 Lymph % 53.2 % High 20.5-51.1 [place]% 5.5 % 1.7-9.3 CBC No Diff 10/17/2012 [facility] White Blood Count 8.0 10^3/uL 4.8-10.8 Red Blood Count 4.95 10^6/uL 4.0-5.4 Hemoglobin 14.9 g/dL 12.0-16.0 Hematocrit 46 % 35-47 Mean Corpuscular Volume 92 fL 80-97 Mean Corpuscular Hemoglobin 30 pg 27-31 Mean Corpuscular HGB Conc 33 g/dL 31-36 Red Cell Distribution Width 13 % 10.5-15 Platelet Count 223 10^3/uL 150-450 Mean Platelet Volume 8 um3 7.4-10.4 Basic Metabolic Panel 10/17/2012 [facility] Sodium 141 mmol/L 133-145 Potassium 3.6 mmol/L 3.5-5.0 Chloride 109 mmol/L 101-111 Co2 Carbon Dioxide 25.0 mmol/L 22-32 Anion Gap 7.0 mmol/L 2-11 Glucose 131 mg/dL High 70-100 Blood Urea Nitrogen 22 mg/dL 6-24 Creatinine 0.90 mg/dL 0.50-1.40 BUN/Creatinine Ratio 24.4 High 8-20 Calcium 9.6 mg/dL 8.1-9.9 Egfr Non- 59.9 >60 Egfr 77.1 >60 8 Laboratory test 10/17/2012 [facility] TSH (Thyroid 3.34 miu/mL 0.34-5.60 finding Stimulating Horm) Comprehensive 08/14/2012 Collins Usha(fma) Albumin 4.2 g/dL 3.8-5.5 Metabolic Prof Alk. Phos. 78 U/L 30-110 Alt (SGPT) 19 U/L 7-35 Ast (Sgot) 23 U/L 5-34 BUN 22 mg/dL 6-26 Calcium 9.1 mg/dL 8.6-10.2 Chloride 105 mEq/L 94-112 Creatinine 1.1 mg/dL 0.6-1.4 Carbon Dioxide 26 mEq/L 21-32 Glucose 133 mg/dL High 70-105 Sodium 145 mEq/L 134-149 Total Bilirubin 0.6 mg/dL 0.2-1.3 Total Protein 6.4 g/dL 6.3-8.1 Potassium 4.3 mEq/L 3.6-5.5 Globulin 2.1 g/dL 2.0-4.8 A/G Ratio 2.0 Calc 0.6-2.3 BUN/Creat Ratio 20.8 Calc 8.0-36.0 Lipid Profile 08/14/2012 Collins Usha(fma) Cholesterol 134 mg/dL 120- 200 HDL 33 mg/dL 30-85 Triglycerides 139 mg/dL 30-200 HDL Risk Factor 4.0 CALC 0.0-4.4 LDL (Calculated) 73 CALC 0-129 VLDL (Calculated) 28 mg/dL 0-50 Ua - Micro (Fma) 12/13/2011 [facility] Appearance CLEAR (607)- - Color YELLOW Glucose NEG Bilirubin NEG Ketones TRACE SP Grav 1.030 Blood LARGE # PH 5.5 Protein NEG Urobil 1.0 Nitrite NEG Leukocytes (Fma/CMC/[facility]) NEG WBC (Fma,[facility]) 0-2 # RBC 3-5 # Epith FEW /Lpf # Laboratory test 12/13/2011 [facility] Thin Prep SEE NOTE [address] W/HPV(Lsil/JHONATAN/Asc) [place] [address] [phone] CBC Electronic 11/14/2011 [facility] WBC 6.9 3.6- (a) (607)- - 9.6 RBC 4.68 3.90-5.70 Hemoglobin (Fma/CMC/CTX) 14.0 g/dL 12.1 - 17.2 Hematocrit (Fma/CMC/CTX) 43.5 % 36.1 - 50.3 Platelets 228 10^3/ul 150-400 Lymph% 34.6 20.5-51.1 Mixed% 7.0 Neutrophils % 58.4 Mean Corpuscular Vol 93 82.2-97.4 Mean Corpuscular Hemoglobin 30.0 27.6-33.3 Mean Corpuscular Hemo Concen 32.3 32.0-36.0 RDW 13.3 11.6-13.7 Mean Platelet Volume 7.2 6.5-11.0 Comprehensive Metabolic 11/14/2011 Dennis Kerr([facility]) Albumin 4.3 g/dL 3.8-5.5 Prof Alk. Phos. 92 U/L 30-110 Alt (SGPT) 24 U/L 7-35 Ast (Sgot) 29 U/L 5-34 BUN 19 mg/dL 6-26 Calcium 9.6 mg/dL 8.6-10.2 Chloride 102 mEq/L 94-112 Creatinine 1.1 mg/dL 0.6-1.4 Carbon Dioxide 26 mEq/L 21-32 Glucose 121 mg/dL High 70-105 10 Sodium 142 mEq/L 134-149 Total Bilirubin 0.7 mg/dL 0.2-1.3 Total Protein 6.6 g/dL 6.3-8.1 Potassium 4.7 mEq/L 3.6-5.5 Globulin 2.2 g/dL 2.0-4.8 A/G Ratio 1.9 Calc 0.6-2.2 BUN/Creat Ratio 17.3 Calc 8.0-36.0 Lipid Profile 11/14/2011 Dennis Kerr(a) Cholesterol 166 mg/dL 120- 200 HDL 37 mg/dL 30-85 Triglycerides 117 mg/dL 30-200 HDL Risk Factor 4.5 CALC High 0.0-4.0 LDL (Calculated) 106 CALC 0-129 VLDL (Calculated) 23 mg/dL 0-50 CBC Electronic (a) 12/27/2010 [facility] WBC 7.2 3.6-9.6 (607)- - RBC 4.51 3.90-5.70 Hemoglobin (Fma/CMC/CTX) 14.0 g/dL 12.1 - 17.2 Hematocrit (Fma/CMC/CTX) 41.3 % 36.1 - 50.3 Platelets 240 10^3/ul 150-400 Lymph% 44.6 20.5-51.1 Mixed% 5.8 Neutrophils % 49.6 Mean Corpuscular Vol 91 82.2-97.4 Mean Corpuscular Hemoglobin 30.9 27.6-33.3 Mean Corpuscular Hemo Concen 33.8 32.0-36.0 RDW 12.3 11.6-13.7 Mean Platelet Volume 7.5 6.5-11.0 Comprehensive Metabolic 12/27/2010 Collins Usha([facility]) Albumin 4.7 g/dL 3.8-5.5 Prof Alk. Phos. 110 U/L 30-110 Alt (SGPT) 27 U/L 7-35 Ast (Sgot) 27 U/L 5-34 BUN 19 mg/dL 6-26 Calcium 9.5 mg/dL 8.6-10.2 Chloride 106 mEq/L 94-112 Creatinine 1.1 mg/dL 0.6-1.4 Carbon Dioxide 22 mEq/L 21-32 Glucose 112 mg/dL High 70-105 11 Sodium 144 mEq/L 134-149 Total Bilirubin 0.8 mg/dL 0.2-1.3 Total Protein 7.0 g/dL 6.3-8.1 Potassium 4.3 mEq/L 3.6-5.5 Globulin 2.3 g/dL 2.0-4.8 A/G Ratio 2.1 Calc 0.6-2.2 BUN/Creat Ratio 17.8 Calc 8.0-36.0 Lipid Profile (Trig/Chol/HDL) 10/06/2010 [facility] Triglyceride 130 mg/dL 40- 200 Cholesterol 147 mg/dL Less Than 200 12 High Density Lipoprotein 42 mg/dL 40-60 13 Low Density Lipoprotein 79 mg/dL Less Than 100 14 Cholesterol/HDL Ratio 3.50 AVERAGE 1-4.44 Laboratory test finding 10/06/2010 [facility] Alt (SGPT) 23 U/L 14-54 Ast (Sgot) 23 U/L 12-42 CPK (Creatine Kinase) 89 U/L 0-170 Laboratory test finding 08/18/2010 [facility] Alt (SGPT) 27 U/L 14-54 Ast (Sgot) 28 U/L 12-42 CPK (Creatine Kinase) 149 U/L 0-170 Lipid Profile (Trig/Chol/HDL) 08/18/2010 [facility] Triglyceride 136 mg/dL 40- 200 Cholesterol 130 mg/dL Less Than 200 15 High Density Lipoprotein 35 mg/dL Low 40-60 16 Cholesterol/HDL Ratio 3.71 AVERAGE 1-4.44 Low Density Lipoprotein 68 mg/dL Less Than 100 17 Laboratory test finding 12/30/2009 [facility] PTT (Aptt) 28.5 25.15-38.53 CBC With Manual Diff 12/30/2009 [facility] White Blood Count 6.7 CUMM 4.8-10.8 Red Cell Count 4.19 CUMM Low 4.2-5.4 Hemoglobin 13.3 g/dL 12.0-16.0 Hematocrit 39 % 35-47 Mean Corpuscular Volume 92 um3 79-97 Mean Corpuscular Hemoglob 32 pg High 27-31 Mean Corpuscular HGB Cone 34 g/dL 32-36 Redcell Distribution WDTH 13 % 10.5-15 Platelet Count 228 CUMM 150-450 Mean Platelet Volume 6.8 um3 Low 7.4-10.4 Polysegmented Neutrophil 59 % 38-83 Lymphocyte 30 % 25-47 Monocyte 6 % 0-13 Eosinophil 2 % 0-6 Basophil 1 % 0-2 Atypical Lymph 2 % 0-6 Absolute Neutrophil Count 3.9 Anisocytosis SLIGHT Ovalocytes FEW Protime 12/30/2009 [facility] Inr 0.98 0.82-1.17 18 Protime 11.5 SEC 10.2-14.8 19 Basic Metabolic Panel 12/30/2009 [facility] Sodium 144 mmol/L 135-145 Potassium 3.9 mmol/L 3.5-5.0 Chloride 108 mmol/L 101-111 Co2 (Carbon Dioxide) 28.0 mmol/L 22-32 Anion Gap 8.0 mmol/L 2-11 20 Glucose 124 mg/dL High 70-100 21 BUN 14 mg/dL 6-24 Creatinine 1.00 mg/dL 0.50-1.40 One Over Creatinine 1.00 BUN/Creatinine Ratio 14.0 8-20 Calcium 8.9 mg/dL 8.1-9.9 eGFR Non- 56.8 > 60 eGFR 68.8 > 60 22 Laboratory test finding 12/16/2009 [facility] Complement C3 154 mg/dL 75-175 23 Complement C4 27 mg/dL 14-40 24 Lyme Disease Serology Negative Negative 25 Laboratory test finding 12/16/2009 [facility] Complement C3 154 mg/dL 75-175 26 Complement C4 27 mg/dL 14-40 27 Lyme Disease Serology Negative Negative 28 Fta-Abs Igg In House Use Only Non Reactive () 29 Liver Function Panel 12/16/2009 [facility] Total Protein 6.4 GM/DL 6.2-8.1 Albumin 3.8 GM/DL 3.2-5.2 Globulin 2.6 GM/DL 2-4 Albumin/Globulin Ratio 1.5 1-3 Bilirubin Total 1.0 mg/dL 0.4-1.5 30 Bilirubin Direct 0.1 mg/dL 0.1-0.5 Indirect Bilirubin 0.9 mg/dL 0.3-1.0 31 Alkaline Phosphatase 74 U/L 30-110 Alt (SGPT) 22 U/L 14-54 Ast (Sgot) 23 U/L 12-42 Laboratory test finding 12/16/2009 [facility] Thyroxine Free 0.60 NG/ML Low 0.61 -1.24 T3 Total 0.97 NG/ML 0.5-1.7 TSH 2.84 MIU/ML 0.34-5.60 Rheumatoid Factor < 20.0 IU/mL Less Than 20 CBC With Electronic Diff 12/16/2009 [facility] White Blood Count 8.4 CUMM 4.8- 10.8 Red Cell Count 4.15 CUMM Low 4.2-5.4 Hemoglobin 13.1 g/dL 12.0-16.0 Hematocrit 38 % 35-47 Mean Corpuscular Volume 92 um3 79-97 Mean Corpuscular Hemoglob 32 pg High 27-31 Mean Corpuscular HGB Cone 34 g/dL 32-36 Redcell Distribution WDTH 13 % 10.5-15 Platelet Count 260 CUMM 150-450 Mean Platelet Volume 6.7 um3 Low 7.4-10.4 Gran % 51.9 % 38-83 Lymph % 39.6 % 25-47 Mononuclear % 6.0 % 1-9 Eosinophil % 1.7 % 0-6 Basophil % 0.8 % 0-2 Abs Lymphs 3.3 1.0-4.8 Abs Mononuclear 0.5 0-0.8 Absolute Neutrophil Count 4.4 1.5-7.7 Abs Eosinophils 0.1 0-0.6 Abs Basophils 0.1 0-0.2 Laboratory test finding 12/16/2009 [facility] Erythrocyte Sed Rate 5 MM/HR 0- 40 Syphilis IgG NON-REACTIVE Nonreactive 32 [place] (Antinuclear 12/16/2009 [facility] Antinuclear AB POSITIVE Abnormal Negative Antibodies) [place] Pattern NUCLEOLAR Abnormal Antinuclear AB 1:80 Abnormal Reviewed By (SEE NOTE) 33 Ssa/SSB 12/16/2009 [facility] Ssa NEGATIVE Negative SSB NEGATIVE Negative Basic Metabolic Panel 12/16/2009 [facility] Sodium 143 mmol/L 135-145 Potassium 4.4 mmol/L 3.5-5.0 Chloride 109 mmol/L 101-111 Co2 (Carbon Dioxide) 28.0 mmol/L 22-32 Anion Gap 6.0 mmol/L 2-11 34 Glucose 91 mg/dL 70-100 35 BUN 15 mg/dL 6-24 Creatinine 1.10 mg/dL 0.50-1.40 One Over Creatinine 0.90 BUN/Creatinine Ratio 13.6 8-20 Calcium 9.2 mg/dL 8.1-9.9 eGFR Non- 50.9 > 60 eGFR 61.6 > 60 36 Laboratory test finding 12/16/2009 [facility] Complement C3 154 mg/dL 75-175 37 Complement C4 27 mg/dL 14-40 38 Lyme Disease Serology Negative Negative 39 Comprehensive Metabolic 08/05/2009 [facility] U[facility]) Albumin 4.2 g/dL 3.8-5.5 Prof Alk. Phos. 86 U/L 30-110 Alt (SGPT) 50 U/L High 7-35 Ast (Sgot) 45 U/L High 5-34 BUN 23 mg/dL 6-26 Calcium 9.1 mg/dL 8.6-10.2 Chloride 106 mEq/L 94-112 Creatinine 1.0 mg/dL 0.6-1.4 Carbon Dioxide 24 mEq/L 21-32 Glucose 114 mg/dL High 70-105 40 Sodium 144 mEq/L 134-149 Total Bilirubin 0.5 mg/dL 0.2-1.3 Total Protein 6.3 g/dL 6.3-8.1 Potassium 4.3 mEq/L 3.6-5.5 Globulin 2.0 g/dL 2.0-4.8 A/G Ratio 2.1 Calc 0.6-2.2 BUN/Creat Ratio 24.2 Calc 8.0-36.0 Lipid Profile 08/05/2009 Collins Usha([facility]) Cholesterol 140 mg/dL 120- 200 HDL 41 mg/dL 30-85 Triglycerides 151 mg/dL 30-200 HDL Risk Factor 3.4 CALC Low 4.2-7.0 LDL (Calculated) 68 CALC 0-129 VLDL (Calculated) 30 mg/dL 0-50 Comprehensive Metabolic 10/22/2008 Collins Usha([facility]) Albumin 4.1 g/dL 3.8-5.5 41 Prof Alk. Phos. 100 U/L 30-110 Alt (SGPT) 24 U/L 7-35 Ast (Sgot) 22 U/L 5-34 BUN 23 mg/dL 6-26 Calcium 9.3 mg/dL 8.6-10.2 Chloride 105 mEq/L 94-112 Creatinine 1.3 mg/dL 0.6-1.4 Carbon Dioxide 25 mEq/L 21-32 Glucose 121 mg/dL High 70-105 Sodium 145 mEq/L 134-149 Total Bilirubin 0.3 mg/dL 0.2-1.3 Total Protein 6.6 g/dL 6.3-8.1 Potassium 4.1 mEq/L 3.6-5.5 Globulin 2.5 g/dL 2.0-4.8 A/G Ratio 1.6 Calc 0.6-2.2 BUN/Creat Ratio 18.3 Calc 8.0-36.0 Lipid Profile 10/22/2008 Collins Usha([facility]) Cholesterol 133 mg/dL 120- 200 HDL 33 mg/dL 30-85 Triglycerides 179 mg/dL 30-200 HDL Risk Factor 4.1 CALC Low 4.2-7.0 LDL (Calculated) 64 CALC 0-129 VLDL (Calculated) 36 mg/dL 0-50 Comprehensive Metabolic 01/01/2008 Collins Usha([facility]) Albumin 4.2 g/dL 3.8-5.5 Prof Alk. Phos. 93 U/L 30-110 Alt (SGPT) 31 U/L 7-35 Ast (Sgot) 28 U/L 5-34 BUN 20 mg/dL 6-26 Calcium 9.4 mg/dL 8.6-10.2 Chloride 103 mEq/L 94-112 Creatinine 1.2 mg/dL 0.6-1.4 Carbon Dioxide 27 mEq/L 21-32 Glucose 107 mg/dL High 70-105 Sodium 144 mEq/L 134-149 Total Bilirubin 0.7 mg/dL 0.2-1.3 Total Protein 6.7 g/dL 6.3-8.1 Potassium 4.5 mEq/L 3.6-5.5 Globulin 2.5 g/dL 2.0-4.8 A/G Ratio 1.6 Calc 0.6-2.2 BUN/Creat Ratio 16.4 Calc 8.0-36.0 Lipid Profile 01/01/2008 Collins Usha([facility]) Cholesterol 148 mg/dL 120- 200 HDL 26 mg/dL Low 30-85 Triglycerides 243 mg/dL High 30-200 HDL Risk Factor 5.7 CALC 4.2-7.0 LDL (Calculated) 73 CALC 0-129 VLDL (Calculated) 49 mg/dL 0-50 Ua - Micro (a) 01/01/2008 [facility] Appearance CLEAR (607)- - Color DK YELLOW Glucose, Urine (Fma/CMC/CTX) NEG Bilirubin NEG Ketones NEG SP Grav >1.030 Blood MODERATE # PH 5.5 Protein NEG Urobil 0.2 Nitrite NEG Leukocytes (Fma/CMC/[facility]) NEG Hyaline - /Lpf Granular - /Lpf WBC (Fma,[facility]) 8-10 RBC 15-20 Mucus (Fma/CBC/[facility]) SMALL AMT /Lpf Epith FEW /Lpf Bacteria 2+ /Hpf Amorphous (Fma/CMC/[facility]) - /Lpf Crystals, Fluid (Fma/CMC/CTX) - Z#Comments - Ua - Micro (a) 11/20/2007 [facility] Medicine Appearance CLEAR (607)- - Color YELLOW Glucose NEGATIVE Bilirubin 1+ High # Ketones NEGATIVE SP Grav >=1.030 Blood 2+ # PH 5.5 Protein NEGATIVE Urobil 0.2 Nitrite NEGATIVE Leukocytes (Fma/CMC/[facility]) NEGATIVE Hyaline - /Lpf Granular - /Lpf WBC (Fma,[facility]) 8-10 RBC 15-20 Mucus - /Lpf Epith OCC /Lpf Bacteria 2+ /Hpf Amorphous - /Lpf Crystals, Fluid (Fma/CMC/CTX) - Z#Comments - Laboratory test 11/20/2007 [facility] Thin Prep SEE NOTE 42 finding 28 [facility] W/HPV(Lsil/JHONATAN/Asc) [place], [place] [id number] [phone] Ua - Micro 12/13/2006 [facility] Appearance CLEAR (a) (607)- - Color YELLOW Glucose NEG Bilirubin NEG Ketones NEG SP Grav 1.025 Blood NEG PH 5.0 Protein TRACE Urobil 0.2 Nitrite NEG Leukocytes ([facility]) TRACE Hyaline - /Lpf Granular - /Lpf WBC (a,[facility]) 10-12 RBC 0-3 Mucus MOD AMT /Lpf Epith FEW /Lpf Bacteria 1+ /Hpf Amorphous - /Lpf Crystals, Fluid ([facility]/CMC/CTX) - Z#Comments NOT A CLEAN CATCH Laboratory test 12/13/2006 [facility] Urine Culture No growth. finding 28 [place] [address] [phone] Ua - Micro (a) 11/29/2006 [facility] Appearance TURBID (607)- - Color YELLOW Glucose NEG Bilirubin NEG Ketones NEG SP Grav 1.015 Blood 3+ PH 5.0 Protein SSA 1+ Urobil 0.2 Nitrite POS Leukocytes ([facility]) 1+ Hyaline - /Lpf Granular - /Lpf WBC ([facility]) >75 RBC >100 Mucus - /Lpf Epith OCC /Lpf Bacteria 2+ /Hpf Amorphous - /Lpf Crystals, Fluid ([facility]/CTX) - Z#Comments - Laboratory test 08/30/2006 [facility] Labs BMP;LIPID;LFT See Image finding Report Comp Metabolic 01/18/2006 [facility] Glucose, 109 mg/dL High 70-105 (a) Female (607)- - Serum ([facility]/CMC/CT X) BUN ([facility]) 18 mg/dL 6-26 Creatinine, Serum 1.3 mg/dL 0.6-1.4 BUN/Creatinin Ratio 13.5 8.0-36 Sodium 144 134-149 Potassium 4.9 3.6-5.5 Chloride 99 mEq/L 94-112 Co2 27 21-32 Calcium ([facility]) 9.5 mg/dL 8.6-10.2 Total Protein 6.9 g/dL 6.3-8.1 Albumin ([facility]) 4.1 3.8-5.5 Globulin 2.8 2.0-4.8 A/G Ratio (A/G Ratio) 1.5 0.6-2.2 Alkaline Phosphatase (F/C/CTX) 56 U/L 30-110 Alt (SGPT) Female ([facility]) 18 7-35 Ast Sgot 18 U/L 5-34 Bilirubin, Total 0.8 mg/dL 0.2-1.3 Lipid Profile 01/18/2006 [facility] Cholesterol 158 mg/dL 120-200 ([facility]) Female (607)- - (a/[facility]) Triglyceride 177 mg/dL 30-200 HDL-Chol 32 mg/dL 30-85 LDL, Calculated ([facility]) 90 CALC 0-129 VLDL 35 0-50 HDL Risk Factor ([facility]) 4.9 CALC 4.2-7.0 CBC Electronic ([facility]) 10/18/2005 [facility] WBC 6.0 3.6-9.6 (607)- - Lymphocytes 38.7 % 20.5 - 51.1 Monocytes 7.8 % 1.7-9.3 Granulocytes 53.5 % 42.2 - 75.2 Lymphocytes 2.3 10^3/uL 0.7 - 4.9 Monocytes 0.5 10^3/uL 0.1 - 0.9 Granulocytes 3.2 10^3/uL 1.5 - 7.2 RBC 4.60 3.90-5.70 Hemoglobin (a/CMC/CTX) 14.4 g/dL 12.1 - 17.2 Hematocrit (a/CMC/CTX) 41.9 % 36.1 - 50.3 Mean Corpuscular Vol 91.2 82.2-97.4 Mean Corpuscular Hemaglobin 31.2 27.6-33.3 Mean Corpuscular Hemo Concen 34.2 33.0-36.0 RDW 11.8 11.6-13.7 Platelets 270 10^3/ul 150-400 Mean Platelet Volume 7.2 Low 7.4-10.4 Comp Metabolic 10/18/2005 [facility] Glucose, Serum 113 mg/dL High 70-105 (Fma) Female (607)- - ([facility]/CMC/CTX) BUN ([facility]) 22 mg/dL 6-26 Creatinine, Serum 1.2 mg/dL 0.6-1.4 BUN/Creatinin Ratio 18.5 8.0-36 Sodium 139 134-149 Potassium 4.3 3.6-5.5 Chloride 105 mEq/L 94-112 Co2 29 21-32 Calcium ([facility]) 9.8 mg/dL 8.6-10.2 Total Protein 7.4 g/dL 6.3-8.1 Albumin ([facility]) 3.9 3.8-5.5 Globulin 3.5 2.0-4.8 A/G Ratio (A/G Ratio) 1.1 0.6-2.2 Alkaline Phosphatase (F/C/CTX) 93 U/L 30-110 Alt (SGPT) Female (a) 19 7-35 Ast Sgot 19 U/L 5-34 Bilirubin, Total 1.0 mg/dL 0.2-1.3 Lipid Profile 10/18/2005 [facility] Cholesterol 233 mg/dL High 120- 200 (a) Female (607)- - ([facility]) Triglyceride 220 mg/dL High 30-200 HDL-Chol 42 mg/dL 30-85 LDL, Calculated ([facility]) 147 CALC High 0-129 VLDL 44 0-50 HDL Risk Factor ([facility]) 5.6 CALC 4.2-7.0 Laboratory test 10/18/2005 [facility] TSH ([facility]) 4.06 uIU/ ml 0.5-6.0 finding (607)- - Laboratory test 10/18/2005 [facility] C-Reactive Protein 0.1 mg/dL 0.0-0.5 43 finding 28 [place] [id number] [phone] Liver Function 01/23/2005 [facility] Total Protein 6.6 g/dL 6.3- 8.1 (a) (607)- - Albumin (Fma/CMCC/Centrex) 4.1 3.8-5.5 A/G Ratio (Fma/CMC/Centrex) 1.7 0.6-2.2 Globulin 2.5 2.0-4.8 Alkaline Phosphatase (F/C/CTX) 102 U/L High 22-95 Alt (SGPT) (Fma/CMC/Centrex) 22 10-40 Ast (Sgot) (Fma/CMC/Centrex) 21 U/mL 5-34 Bilirubin, Total 0.7 mg/dL 0.2-1.3 Bilirubin, Direct 0.2 mg/dL 0-0.6 Bilirubin, Indirect 0.51 ml/dl 0.10-1.0 Lipid Profile ([facility]) 01/23/2005 [facility] Cholesterol 237 mg/dL High 120-200 Female (607)- - Triglyceride 214 mg/dL High 30-200 HDL-Chol 29 mg/dL Low 30-85 LDL, Calculated (a/[facility]) 165 CALC High 0-129 LDL Direct (FM/CMC/Centrex) - mg/dL 0-130 VLDL 43 0-50 HDL Risk Factor ([facility]) 8.2 CALC High 4.2-7.0 Laboratory test 08/03/2004 [facility] Uric Acid (Fma/CMC/Centrex) 4.3 mg/dL 2.6 -7.2 finding Rheumatoid Fact (Fma/CMC/CTX) 23.5 IU/mL High <20 C React Protein 0.5 mg/dL <0.5 Final [place] Report NEGATIVE Negative Comp+Liver ([facility]) 07/22/2004 [facility] Glucose, Serum 118 mg/dL High 70-105 (607)- - (Fma/CMC/CTX) BUN (Fma/CMC/Centrex) 20 mg/dL 6-26 Creatinine (Fma/CMC/CTX) 1.2 mg/dL 0.6-1.4 BUN/Creatinin Ratio 16.5 8.0-36 Sodium 147 134-149 Potassium 5.1 3.6-5.5 Chloride 109 mEq/L 94-112 Co2 29 21-32 Calcium (Fma/CMC/[facility]rex) 10.0 mg/dL 8.6-10.2 Total Protein 7.0 g/dL 6.3-8.1 Albumin (Fma/CMCC/Centrex) 4.2 3.8-5.5 Globulin 2.8 2.0-4.8 A/G Ratio (Fma/CMC/[facility]rex) 1.5 0.6-2.2 Alkaline Phosphatase (F/C/CTX) 110 U/L 30-110 Alt (SGPT) ([facility]) 23 7-35 Ast (Sgot) ([facility]) 19 U/mL 5-34 Bilirubin, Total 0.6 mg/dL 0.2-1.3 Bilirubin, Direct 0.2 mg/dL 0-0.6 Bilirubin, Indirect 0.37 ml/dl 0.10-1.0 Lipid Profile (a) 07/22/2004 [facility] Cholesterol 199 mg/dL 120 -200 Female (607)- - Triglyceride 191 mg/dL 30-200 HDL-Chol 34 mg/dL 30-85 LDL, Calculated ([facility]) 126 CALC 0-129 LDL, Direct - mg/dL 0-130 VLDL 38 0-50 HDL Risk Factor (Fma) 5.8 CALC 4.2-7.0 Liver Function (a) 11/25/2003 [facility] Total Protein 6.2 g/dL Low 6.3-8.1 44 (607)- - Albumin ([facility]) 3.9 3.8-5.5 A/G Ratio ([facility]) 1.6 0.6-2.2 Globulin 2.4 2.0-4.8 Alkaline Phosphatase (F/C/CTX) 94 U/L 30-110 Alt (SGPT) 22 10-40 Ast (Sgot) ([facility]) 20 U/mL 5-34 Bilirubin, Total 0.7 mg/dL 0.2-1.3 Bilirubin, Direct 0.2 mg/dL 0-0.6 Bilirubin, Indirect 0.54 ml/dl 0.10-1.0 Lipid Profile (a) 11/25/2003 [facility] Cholesterol 183 mg/dL 120 -200 Female (607)- - Triglyceride 31 mg/dL 30-200 HDL-Chol 30 mg/dL 30-85 LDL, Calculated ([facility]) 146 CALC High 0-129 LDL, Direct - mg/dL 0-130 VLDL 6 0-50 HDL Risk Factor (Fma) 6.1 CALC 4.2-7.0 Liver Function (a) 02/04/2003 [facility] Total Protein 6.9 g/dL 6.3-8.1 (607)- - Albumin (Fma/CMCC/Centrex) 4.0 3.8-5.5 A/G Ratio (Fma/CMC/[facility]rex) 1.4 0.6-2.2 Globulin 2.9 2.0-4.8 Alkaline Phosphatase (F/C/CTX) 83 U/L 30-110 Alt (SGPT) 19 10-40 Ast (Sgot) (Fma/CMC/[facility]rex) 17 U/mL 5-34 Bilirubin, Total 0.7 mg/dL 0.2-1.3 Bilirubin, Direct 0.2 mg/dL 0-0.6 Bilirubin, Indirect 0.46 ml/dl 0.10-1.0 Lipid Profile ([facility]) 02/04/2003 [facility] Cholesterol 212 mg/dL High 120-200 (607)- - Triglyceride 212 mg/dL High 30-200 HDL-Chol 31 30-85 LDL-Calculated ([facility]) 138 CALC High 0-129 VLDL 42 0-50 HDL Risk Factor ([facility]) 6.8 CALC 4.2-7.0 Comp Metabolic 10/23/2002 [facility] Glucose, Serum 94 mg/dL 70- 118 ([facility]) (607)- - (Fma/CMC/CTX) BUN (Fma/CMC/Centrex) 20 mg/dL 7-26 Creatinine (Fma/CMC/CTX) 1.1 mg/dL 0.6-1.4 BUN/Creatinin Ratio 17.1 8.0-36 Sodium 148 134-149 Potassium 4.8 3.6-5.5 Chloride 107 mEq/L 94-112 Co2 26 21-32 Calcium (Fma/CMC/[facility]rex) 9.4 mg/dL 8.6-10.0 Total Protein 7.2 g/dL 6.3-8.1 Albumin (Fma/CMCC/Centrex) 4.3 3.8-5.5 Globulin 2.9 2.0-4.8 A/G Ratio (Fma/CMC/[facility]rex) 1.5 0.6-2.2 Alkaline Phosphatase (F/C/CTX) 92 U/L 30-110 Alt (SGPT) 20 10-40 Ast (Sgot) (Fma/CMC/[facility]rex) 14 U/mL 5-34 Bilirubin, Total 0.6 mg/dL 0.2-1.3 Laboratory test 10/23/2002 [facility] Bilirubin, Direct 0.0 mg/dL 0 -0.6 finding (607)- - Bilirubin, Indirect 0.57 ml/dl 0.10-1.0 Lipid Profile ([facility]) 10/23/2002 [facility] Cholesterol 306 mg/dL High 120-200 (607)- - Triglyceride 267 mg/dL High 30-200 HDL-Chol 43 30-85 LDL-Calculated ([facility]) INVALID CALC 0-129 VLDL 53 High 0-50 HDL Risk Factor ([facility]) 7.2 CALC High 4.2-7.0 Laboratory test finding 10/23/2002 [facility] LDL, Direct 190 mg/dL High 0-130 (607)- - TSH 3.96 uIU/ml 0.5-6.0 CBC With Diff ([facility]) 02/19/2002 [facility] WBC 6.0 3.6-9.6 (607)- - Lymphocytes 31.9 % 20.5 - 51.1 Monocytes 9.0 % 1.7-9.3 Granulocytes 59.1 % 42.2 - 75.2 Lymphocytes 1.9 10^3/uL 0.7 - 4.9 Monocytes 0.5 10^3/uL 0.1 - 0.9 Granulocytes 3.5 10^3/uL 1.5 - 7.2 RBC 4.49 3.90-5.70 Hemoglobin 14.0 g/dL 12.1 - 17.2 Hematocrit 40.5 % 36.1 - 50.3 Mean Corpuscular Vol 90.3 82.2-97.4 Mean Corpuscular Hemaglobin 31.2 27.6-33.3 Mean Corpuscular Hemo Concen 34.6 33.0-34.8 RDW 11.8 11.6-13.7 Platelets 278. 10^3/ul 150-400 Mean Platelet Volume 7.5 7.4-10.4 Comp Metabolic ([facility]) 09/23/1999 [facility] Albumin 4.2 GM/DL 3.80 - 5.50 (607)- - Alkaline Phosphatase 98 U/L 39-130 Bilirubin, Total 0.7 mg/dL 0.2-1.3 BUN 19 mg/dL 10- Calcium 8.6 mg/dL 7.4-9.2 Creatinine 0.9 mg/dL 0.6-1.4 Glucose 92 mg/dL 70 - 118 Ast Sgot 29 U/L 9-44 Alt (SGPT) 36 U/L 10-40 Total Protein 6.9 g/dL 6.3-8.1 Sodium 147 mEq/L 134-149 Potassium 4.8 mEq/L 3.6-5.5 Chloride 108 mEq/L 94-112 Co2 28 21-32 Globulin 2.7 2.0-4.8 Albumin / Globulin Ratio 1.6 0.6-2.2 BUN/Creatinin Ratio 21.1 8.0-36 Lipid Profile ([facility]) 09/23/1999 [facility] Cholesterol 260 mg/dL High 140-200 (607)- - Triglyceride 237 mg/dL High 30-150 HDL-Chol 43.1 mg/dL 30-70 VLDL 47 mg/dL 0-50 LDL-Calculated 170 High 0-160 CBC With Diff ([facility]) 09/23/1999 [facility] WBC 6.2 /Hpf 3.6 - 9.6 (607)- - Lymphocytes 54.4 % High 20.5 - 51.1 Monocytes 6.5 % 1.7 - 9.3 Granulocytes 39.1 % Low 42.2 - 75.2 Lymphocytes 3.4 10^3/uL 0.7 - 4.9 Monocytes 0.4 10^3/uL 0.1 - 0.9 Granulocytes 2.4 10^3/uL 1.5 - 7.2 RBC 4.24 /Hpf 3.90 - 5.70 Hemoglobin 13.7 g/dL 12.1 - 17.2 Hematocrit 40.4 % 36.1 - 50.3 Mean Corpuscular Vol 95.2 fl 82.2 - 97.4 Mean Corpuscular Hemaglobin 32.3 pg 27.6 - 33.3 Mean Corpuscular Hemo Concen 33.9 g/dL 33.0 - 34.8 RDW 11.7 % 11.6 - 13.7 Platelets 238 10^3/ul 150-400 Mean Platelet Volume 7.6 fl 7.4 - 10.4 Ua - Micro ([facility]) 09/16/1999 [facility] Appearance YELLOW CLEAR (607)- - SP Grav 1.030 Esterase - Nitrite - pH 5.0 Protein - Glucose - Ketones - Urobil - Bilirubin - Blood 2+ MODERATE Hyaline - /Lpf Granular - /Lpf WBC'S 0- RBC'S - Mucus - /Lpf Epith 1-3 Bacteria - Amorphous 2+ /Lpf Crystals - /Lpf Comp Metabolic ([facility]) 04/13/1999 [facility] Albumin 4.3 GM/DL 3.80 - 5.50 (607)- - Alkaline Phosphatase 93 U/L 39-130 Bilirubin, Total 0.4 mg/dL 0.2-1.3 BUN 15 mg/dL 10-26 Calcium 8.7 mg/dL 7.4-9.2 Creatinine 1.0 mg/dL 0.6-1.4 Glucose 96 mg/dL 70 - 118 Ast Sgot 39 U/L 9-44 Alt (SGPT) 53 U/L High 0-28 Total Protein 6.3 g/dL 6.3-8.1 Sodium 145 mEq/L 134-149 Potassium 4.1 mEq/L 3.6-5.5 Chloride 108 mEq/L 94-112 Co2 26 21-32 Globulin 2.0 2.0-4.8 Albumin / Globulin Ratio 2.2 0.6-2.2 BUN/Creatinin Ratio 15.0 8.0-36 Lipid Profile ([facility]) 04/13/1999 [facility] Cholesterol 293 mg/dL High 140-200 (607)- - HDL-Chol 42 mg/dL 35-85 Triglyceride 181 mg/dL High 30-150 VLDL 36 mg/dL 0-50 LDL-Calculated 215 High 0-160 Laboratory test 04/13/1999 [facility] Thyroxine, Total 5.98 g/dL 3.0-11.0 finding (607)- - (T4) TSH 7.28 uIU/ML High 0.3 - 4.5 CBC With Diff ([facility]) 04/13/1999 [facility] WBC 6.7 /Hpf 3.6 - 9.6 (607)- - Lymphocytes 51.8 % High 20.5 - 51.1 Monocytes 6.3 % 1.7 - 9.3 Granulocytes 41.9 % Low 42.2 - 75.2 Lymphocytes 3.5 10^3/uL 0.7 - 4.9 Monocytes 0.4 10^3/uL 0.1 - 0.9 Granulocytes 2.8 10^3/uL 1.5 - 7.2 RBC 4.29 /Hpf 3.90 - 5.70 Hemoglobin 13.7 g/dL 12.1 - 17.2 Hematocrit 41.2 % 36.1 - 50.3 Mean Corpuscular Vol 96.2 fl 82.2 - 97.4 Mean Corpuscular Hemaglobin 32.0 pg 27.6 - 33.3 Mean Corpuscular Hemo Concen 33.3 g/dL 33.0 - 34.8 RDW 11.2 % Low 11.6 - 13.7 Platelets 276 10^3/ul 202 - 386 Mean Platelet Volume 7.5 fl 7.4 - 10.4 1 FASTING 2 RESULTS VERIFIED BY REPEAT ANALYSIS 3 Escherichia coli 60,000 col/ml . URINE CULTURE ORGANISM 1 Escherichia coli ORGANISM 1 60,000 col/ml Ampicillin >=32 Resistant Ampicillin/sulbactam >=32 Resistant Cefazolin <=4 Susceptible Cefoxitin <=4 Susceptible Ciprofloxacin <=0.25 Susceptible Ertapenem <=0.5 Susceptible Gentamicin <=1 Susceptible Imipenem <=0.25 Susceptible Levofloxacin <=0.12 Susceptible Nitrofurantoin 32 Susceptible Piperacillin/tazobactam <=4 Susceptible Trimethoprim/Sulfa <=20 Susceptible 4 >100 to <200 pg/mL: likely compensated congestive heart failure (CHF) 200 to 400 pg/mL: likely moderate CHF >400 pg/mL: likely moderate to severe CHF [place] [facility] 5 Because ethnic data is not always readily available, this report includes an eGFR for both -Americans and non- Americans. The National Kidney Disease Education Program (NKDEP) does not endorse the use of the MDRD equation for patients that are not between the ages of 18 and 70, are , have extremes of body size, muscle mass, or nutritional status, or are non- or non-. According to the National Kidney Foundation, irrespective of diagnosis, the stage of the disease is based on the level of kidney function: Stage Description GFR(mL/min/1.73 m(2)) 1 Kidney damage with normal or decreased GFR 90 2 Kidney damage with mild decrease in GFR 60-89 3 Moderate decrease in GFR 30-59 4 Severe decrease in GFR 15-29 5 Kidney failure <15 (or dialysis) 6 Reference Range and Interpretation: TnI (ng/mL) Interpretation Less Than 0.03 ng/mL Not supportive of diagnosis of NM 0.03 - 0.50 ng/mL Indeterminate: suggest serial studies if clinically indicated. Greater than 0.5 ng/mL Consistent with diagnosis of NM 7 Acute inflammation: >10.00 8 Because ethnic data is not always readily available, this report includes an eGFR for both -Americans and non- Americans. The National Kidney Disease Education Program (NKDEP) does not endorse the use of the MDRD equation for patients that are not between the ages of 18 and 70, are , have extremes of body size, muscle mass, or nutritional status, or are non- or non-. According to the National Kidney Foundation, irrespective of diagnosis, the stage of the disease is based on the level of kidney function: Stage Description GFR(mL/min/1.73 m(2)) 1 Kidney damage with normal or decreased GFR 90 2 Kidney damage with mild decrease in GFR 60-89 3 Moderate decrease in GFR 30-59 4 Severe decrease in GFR 15-29 5 Kidney failure <15 (or dialysis) 9 [employer]. DEPARTMENT OF PATHOLOGY or Extension 7499 COMBINED HPV / MILL CONTROL OPERATOR CYTOLOGY REPORT PATIENT: NAMITA HESS : 1930 AGE: 81 Y SEX: F ACCT: [id number] PROCEDURE DATE: 12/13/2011 DATE RECEIVED: 12/14/2011 REQUESTING PHYSICIAN: OH ALDRIDGEF LOCATION: [facility] [place] Case No. [id number] PATIENT DATA: [id number] SPECIMEN SUBMITTED: * * (HPVII) THIN PREP W/HPV (LSIL/ASC/JHONATAN) * * ENDOCERVICAL RELEVANT HISTORY: Menopause: Y Prev.normal: 11/20/07 : 5 Para: 5 Comment: LMP: MORE THAN THREE YEARS SPECIMEN ADEQUACY SATISFACTORY FOR EVALUATION, ENDOCERVICAL TRANSFORMATION ZONE COMPONENT PRESENT GENERAL CATEGORIZATION EPITHELIAL CELL ABNORMALITY: SEE "INTERPRETATION/RESULT" INTERPRETATION/ RESULT LOW GRADE SQUAMOUS INTRAEPITHELIAL LESION (LSIL) ENCOMPASSING: MILD DYSPLASIA (CHRISTIE I) AND/OR HPV ASSOCIATED CHANGES. ICD-9 DIAGNOSIS CODE 795.03 RECOMMENDATIONS See Related Reference Test Result below. See www.asccp.org and articles in Am J of Obstet Gynecol 2007 Jan; 197(4), for current consensus recommendation guidelines. COMMENTS Thin Prep Pap tests are examined with an FDA approved location-guidance system. RELATED REFERENCE TEST RESULT: HPV: "HIGH RISK" Source: CERVICAL Result: POSITIVE Test Method: HC2 Performing Location: 01 METHODOLOGY: HPV high risk is performed with the FDA approved Digene HC2 method whenever the specimen is cellular enough and the quantity of sample remaining in the vial after Thin Prep PAP slide preparation equals or greater than 4 ml. In cases of smaller sample (0.5 to 3.9 ml) the HPV high risk testing will be performed with Low Volume rfx. (01 RN) Digene Hybrid Capture (HC2). FDA approved and detects 13 "high risk" HPV types (16/18/31/33/35/39/45/51/52/56/58/59/68) without differentiation. (02 BN) Low Volume rfx detects fourteen "high risk" HPV types (16/18/31/33/35/39/45/51/52/56/58/59/66/68) without differentiation. ADDITIONAL COPIES SENT TO: Screened/Rescreened Electronically Signed Sign Out Date/Time: by: by: WALTER CABRERA MD 12/19/2011 06:17 PATHOLOGIST Note: The Pap smear is a screening test designed to aid in the detection of premalignant and malignant conditions of the uterine cervix. It is not a diagnostic procedure and should not be used as the sole means of detecting cervical cancer. Both false-positive and false-negative reports do occur. 00 UA Pap Smear performed at [facility] Dir: Matt Jaime MD, [address] [place] [address] 01 marketing outreach coordinator [facility] [place] Dir: Gregorio Garnett MD, [address] [facility] [id number] 02 BN [facility] [place] Dir: Brandt Restrepo MD, [address] [facility] [address] For inquiries regarding HPV test results, the physician may contact [facility]: [phone] "" 10 RESULT ANN'D 11 RESULT ANN'D 12 CHOLESTEROL INTERPRETATION: Desirable: Less than 200 MG/DL Borderline-High Risk: 200-239 MG/DL High-Risk: 240 MG/DL and over 13 HDL INTERPRETATION: Undesirable: High Risk: Less than 40 MG/DL Desirable: Low Risk: Greater than 60 MG/DL 14 LDL INTERPRETATION: Low Risk Optimal Level: LDL Less than 100 MG/DL Near or Above Optimal: LDL 100-129 MG/DL Borderline High Risk: LDL 130-159 MG/DL High Risk: LDL 160-189 MG/DL Very High Risk: LDL Greater than 189 MG/DL 15 CHOLESTEROL INTERPRETATION: Desirable: Less than 200 MG/DL Borderline-High Risk: 200-239 MG/DL High-Risk: 240 MG/DL and over 16 HDL INTERPRETATION: Undesirable: High Risk: Less than 40 MG/DL Desirable: Low Risk: Greater than 60 MG/DL 17 LDL INTERPRETATION: Low Risk Optimal Level: LDL Less than 100 MG/DL Near or Above Optimal: LDL 100-129 MG/DL Borderline High Risk: LDL 130-159 MG/DL High Risk: LDL 160-189 MG/DL Very High Risk: LDL Greater than 189 MG/DL 18 Recommended INR for Patients on Oral Anticoagulants Prophylaxis 2.0 - 3.0 Treatment of thrombosis 2.0 - 3.0 Prevention of embolism 2.0 - 3.0 Prevention of embolism from prosthetic heart valves 2.5 - 3.5 19 DIAGNOSIS,TREATMENT,AND THERAPY MUST BE BASED ON THE INR VALUE ALONE. 20 Anion gap measurement may be of limited value in the presence of any alkalosis, especially in a combined acid base disorder. . 21 Note change in reference range as of 11/28/07. The change was based on recommendations from the [place] [employer]. 22 Because ethnic data is not always readily available, this report includes an eGFR for both -Americans and non- Americans. The National Kidney Disease Education Program (NKDEP) does not endorse the use of the MDRD equation for patients that are not between the ages of 18 and 70, are , have extremes of body size, muscle mass, or nutritional status, or are non- or non-. According to the National Kidney Foundation, irrespective of diagnosis, the stage of the disease is based on the level of kidney function: Stage Description GFR(mL/min/1.73 m(2)) 1 Kidney damage with normal or decreased GFR 90 2 Kidney damage with mild decrease in GFR 60-89 3 Moderate decrease in GFR 30-59 4 Severe decrease in GFR 15-29 5 Kidney failure <15 (or dialysis) 23 Test Performed by: [facility] Dpt of Lab Med and Pathology [address] [place] [address] Certified Pharmacy Technician: Quinton Gurera III, M.D. 24 Test Performed by: [facility] Dpt of Lab Med and Pathology [address] [place] [address] Certified Pharmacy Technician: Quinton Guerra III, M.D. 25 Serologic response to B. burgdorferi infection is not detected, but cannot rule out early infection during which low or undetectable antibody levels to B. burgdorferi may be present. If clinically indicated, a new serum specimen should be submitted in 7-14 days. Test Performed by: [facility] Dpt of Lab Med and Pathology [address] [place] [address] Certified Pharmacy Technician: Quinton Guerra III, M.D. 26 Test Performed by: [facility] Dpt of Lab Med and Pathology [address] [place] [address] Certified Pharmacy Technician: Quinton Guerra III, M.D. 27 Test Performed by: [facility] Dpt of Lab Med and Pathology [address] [place] [address] Certified Pharmacy Technician: Quinton Guerra III, M.D. 28 Serologic response to B. burgdorferi infection is not detected, but cannot rule out early infection during which low or undetectable antibody levels to B. burgdorferi may be present. If clinically indicated, a new serum specimen should be submitted in 7-14 days. Test Performed by: [facility] Dpt of Lab Med and Pathology [address] [place] [address] Certified Pharmacy Technician: Quinton Guerra III, M.D. 29 -- REFERENCE VALUE -- Non Reactive Test Performed By:[facility] [address] [place] [id number] -- REFERENCE VALUE -- Non Reactive 30 A metabolite of Naproxen, O-desmethylnaproxen, has been shown to interfere with the Jendrassik-Pawel method for measuring total bilirubin. Samples from patients who have taken Naproxen have shown spurious elevation in total bilirubin levels. 31 Please note updated reference range, effective 10/28/09 32 Warning: A positive result is not useful for establishing a diagnosis of syphilis. In most situations, such a result may reflect a prior treated infection; a negative result can exclude a diagnosis of syphilis except for incubating or early primary disease. 33 REVIEWED BY HAROON MAS MD 34 Anion gap measurement may be of limited value in the presence of any alkalosis, especially in a combined acid base disorder. . 35 Note change in reference range as of 11/28/07. The change was based on recommendations from the [place] [employer]. 36 Because ethnic data is not always readily available, this report includes an eGFR for both -Americans and non- Americans. The National Kidney Disease Education Program (NKDEP) does not endorse the use of the MDRD equation for patients that are not between the ages of 18 and 70, are , have extremes of body size, muscle mass, or nutritional status, or are non- or non-. According to the National Kidney Foundation, irrespective of diagnosis, the stage of the disease is based on the level of kidney function: Stage Description GFR(mL/min/1.73 m(2)) 1 Kidney damage with normal or decreased GFR 90 2 Kidney damage with mild decrease in GFR 60-89 3 Moderate decrease in GFR 30-59 4 Severe decrease in GFR 15-29 5 Kidney failure <15 (or dialysis) 37 Test Performed by: [facility] Dpt of Lab Med and Pathology [address] [place] [id number] Certified Pharmacy Technician: Quinton Guerra III, M.D. 38 Test Performed by: [facility] Dpt of Lab Med and Pathology [address] [place] [address] Certified Pharmacy Technician: Quinton Guerra III, M.D. 39 Serologic response to B. burgdorferi infection is not detected, but cannot rule out early infection during which low or undetectable antibody levels to B. burgdorferi may be present. If clinically indicated, a new serum specimen should be submitted in 7-14 days. Test Performed by: [facility] Dpt of Lab Med and Pathology [address] [place], [place] [id number] Certified Pharmacy Technician: Quinton Guerra III, M.D. 40 result ann'd 41 FASTING 42 [employer], [employer]. DEPARTMENT OF PATHOLOGY or Extension 8219 MILL CONTROL OPERATOR CYTOLOGY REPORT PATIENT: NAMITA HESS : 1930 AGE: 77 Y SEX: F ACCT: [id number] PROCEDURE DATE: 11/20/2007 DATE RECEIVED: 11/21/2007 REQUESTING PHYSICIAN: SANA ALDRIDGE LOCATION: [facility] [place] Case No. [id number] PATIENT DATA: [id number] SPECIMEN SUBMITTED: * * (HPVII) THIN PREP W/HPV (LSIL/ASC/JHONATAN) * * ENDOCERVICAL RELEVANT HISTORY: Menopause: Y : 5 Para: 5 Hysterectomy: Y Comment: HYSTERECTOMY PERFORMED IN 1957, PATIENT STILL HAS OVARIES AND CERVIX LAST PAP SMEAR: 2004 NORMAL PREVIOUS ABNORMAL 2004 SPECIMEN ADEQUACY SATISFACTORY FOR EVALUATION, ENDOCERVICAL TRANSFORMATION ZONE COMPONENT PRESENT GENERAL CATEGORIZATION NEGATIVE FOR INTRAEPITHELIAL LESIONS OR MALIGNANCY ADDITIONAL COPIES SENT TO: Screened/Rescreened by: Electronically Signed by: KYLAH MENCHACA(ASCP) Signed Date and Time: 11/22/2007 14:28 Thin Prep Pap tests are examined with an FDA-approved location-guidance system (89692). Performed @ [facility] [address] [place] [id number] 43 FASTING; 1SST ?never rec. from acct. left for tech support ?SPECIMEN COMING 7-13 PER WALTER GILL 10/19/2005 15:32 44 RESULT VERIFIED BY REPEAT ANALYSIS Procedures Date Code Description Status 09/29/2014 [id number] Mammogram Completed 12/06/2012 24513 Electrocardiogram Complete Completed 08/14/2012 61904 Spirometry Completed 12/20/2011 [id number] Mammogram Completed 10/15/2008 93389 Destruction-1 Beign Lesion Completed 12/11/2007 [id number] Mammogram Completed 12/17/2002 74264 Inject/Drain Joint/Bursa Major Completed 10/23/2002 67547 Inject/Drain Joint/Bursa Major Completed 04/09/2002 [id number] Bone Mineral Density Test Completed 04/09/2001 [id number] Colonoscopy Completed 09/15/1999 19650 Electrocardiogram Complete Completed 02/25/1999 66296 Pure Tone Audiometry Completed 11/24/1998 94181 Excise Benign Lesion <.6CM Trunk/Arm/Leg Completed 02/01/1998 35996 Electrocardiogram Interpretation & Report Only Completed Encounters Type Date Location Provider Dx Diagnosis Office Visit 04/12/2018 1:00p Main Office Corky Finn M.D. M54.5 Low back pain I10 Essential (primary) hypertension I48.2 Chronic atrial fibrillation R05 Cough E03.8 Other specified hypothyroidism M54.16 Radiculopathy, lumbar region Office Visit 01/24/2018 11:15a [facility] ALEX Estrella R05 Cough I10 Essential (primary) hypertension E03.8 Other specified hypothyroidism G25.81 Restless legs syndrome Office Visit 11/14/2017 9:30a Main Office ALEX Estrella M54.5 Low back pain Office Visit 02/08/2017 2:15p Main Office Indiana Brewster L23.7 Allergic contact Cresencio, AUTOM[employer] DAMAGE FIELD APPRAISER dermatitis due to plants, except food Office Visit 02/02/2017 11:40a Main Office Coryk Finn, H92.03 Otalgia , bilateral M.D. 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 427.31 Atrial Fibrillation 272.4 Hyperlipidemia Other Unspec 429.2 Cardiovascular Disease Unspec 530.81 Esophageal Reflux 300.00 Anxiety State Unspec 272.1 Hypertriglyceridemia Pure Office Visit 08/07/2014 1:00p Main Office Corky Finn, 599.70 Hematuria, M.D. Unspecified 401.1 Hypertension Benign 429.2 Cardiovascular Disease Unspec 427.31 Atrial Fibrillation 272.4 Hyperlipidemia Other Unspec 789.04 Pain Abdominal Left Lower Quadrant Office Visit 01/06/2014 7:10p Main Office Corky Finn, 575.0 Cholecystitis Acute M.D. 401.1 Hypertension Benign 429.2 Cardiovascular Disease Unspec 427.31 Atrial Fibrillation 272.4 Hyperlipidemia Other Unspec 530.81 Esophageal Reflux 300.00 Anxiety State Unspec Office Visit 10/27/2013 3:00p Main Office Corky Finn, 401.1 Hypertension Benign M.D. 429.2 Cardiovascular Disease Unspec 427.31 Atrial Fibrillation 530.81 Esophageal Reflux 724.2 Lumbago 300.00 Anxiety State Unspec 720.2 Sacroiliitis Not Elsewhere Classified 272.4 Hyperlipidemia Other Unspec Office Visit 12/06/2012 10:00a Main Office Corky Finn, 401.1 Hypertension Benign M.D. 429.2 Cardiovascular Disease Unspec 530.81 Esophageal Reflux 272.4 Hyperlipidemia Other Unspec Office Visit 08/14/2012 9:30a Samantha Villanueva 786.09 Dyspnea & Office Tari Finn Respiratory Abnormalities Other Office Visit 08/14/2012 9:00a Samantha Villanueva 272.4 Hyperlipidemia Other Office Tari Finn Unspec 786.09 Dyspnea & Respiratory Abnormalities Other Office Visit 08/06/2012 1:20p Main Office Corky Finn, 386.19 Vertigo Aural & M.D. Otogenic Other 461.8 Sinusitis Acute Other 401.1 Hypertension Benign 429.2 Cardiovascular Disease Unspec 272.4 Hyperlipidemia Other Unspec 530.81 Esophageal Reflux 786.09 Dyspnea & Respiratory Abnormalities Other Office Visit 12/13/2011 9:30a Main Office Lucille Winston, V72.31 Routine Aids Counselor PIPELINE OPERATOR Examination Office Visit 12/12/2011 9:40a Main Office Corky Finn, 724.2 Lumbago M.D. 726.5 Enthesopathy Of Hip Region 719.46 Pain Joint Lower Leg 429.2 Cardiovascular Disease Unspec Office Visit 11/14/2011 11:00a Main Office Corky Finn, 401.1 Hypertension Benign M.D. 429.2 Cardiovascular Disease Unspec 272.4 Hyperlipidemia Other Unspec 530.81 Esophageal Reflux 300.00 Anxiety State Unspec 724.2 Lumbago 780.52 Insomnia Unspecified Office Visit 12/26/2010 4:00p Main Office Corky Finn, 401.1 Hypertension Benign M.D. 272.4 Hyperlipidemia Other Unspec 429.2 Cardiovascular Disease Unspec 530.81 Esophageal Reflux 300.00 Anxiety State Unspec 564.00 Constipation Unspecified Office Visit 08/05/2009 9:20a [facility] Corky Villanueva 401.1 Hypertension Benign Midura, M.D. 272.4 Hyperlipidemia Other Unspec 429.2 Cardiovascular Disease Unspec 530.81 Esophageal Reflux 477.9 Rhinitis Allergic Cause Unspec Office Visit 01/07/2009 10:30a [facility] Lucille Winston, 401.1 Hypertension PIPELINE OPERATOR Benign 272.4 Hyperlipidemia Other Unspec 429.2 Cardiovascular Disease Unspec 530.81 Esophageal Reflux Office Visit 10/15/2008 1:20p [facility] Corky Villanueva 401.1 Hypertension Benign Midmerline, M.D. 429.2 Cardiovascular Disease Unspec 272.4 Hyperlipidemia Other Unspec 216.4 Benign Neoplasm Skin Scalp & Neck Office Visit 01/01/2008 8:45a Main Office Corky Finn, 401.1 Hypertension Benign M.D. 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 429.2 Cardiovascular Disease Unspec 272.4 Hyperlipidemia Other Unspec 530.81 Esophageal Reflux 366.9 Cataract Unspec V72.83 Examination Preoperative Other Spec Office Visit 01/15/2007 9:00a Main Office Zitajoy Horan, V58.69 Medications Long Afnp-C Term (Current) Use Of Other Medication 530.81 Esophageal Reflux 300.00 Anxiety State Unspec 272.4 Hyperlipidemia Other Unspec V04.81 Need For Prophylactic Vaccination & Inoculation/Influenza Office Visit 11/29/2006 1:45p Main Office Zita Horan, 599.0 UTI Urinary Tract Afnp-C Infection Site Not Spec Office Visit 09/10/2006 3:00p Main Office Corky Finn, 786.2 Cough M.D. 477.9 Rhinitis Allergic Cause Unspec 401.1 Hypertension Benign 272.4 Hyperlipidemia Other Unspec 429.2 Cardiovascular Disease Unspec 300.00 Anxiety State Unspec 530.81 Esophageal Reflux Office Visit 02/01/2006 1:40p [facility] Corky Finn, 719.44 Pain Joint M.D. Hand 914.4 Injury Superficial Insect Bite Hand Exc Fing Nonve W/O Infec Office Visit 01/17/2006 2:40p Main Office Corky Finn, 401.1 Hypertension Benign M.D. 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 Unspec 530.81 Esophageal Reflux 272.4 Hyperlipidemia Other Unspec 729.82 Cramp Of Limb V04.81 Need For Prophylactic Vaccination & Inoculation/Influenza Office Visit 07/22/2004 9:00a Main Office Corky Finn M.D. 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 Region V04.8 Need For Vaccination & Inoculation Other Viral Diseases V03.82 Streptococcus Pneumoniae Vaccination Spec Other 724.5 Backache Unspec Office Visit 10/23/2002 [facility] Corky Villanueva 272.0 Hypercholesterolemia Pure 10:00a Office Tari Finn 724.2 Lumbago 244.9 Hypothyroidism Other Unspec 272.4 Hyperlipidemia Other Unspec Office Visit 07/28/2002 7:40p Main Office Corky Fnin, 486 Pneumonia Organism M.D. Unspec 465.9 URI Upper Respiratory Infections Acute Unspec Sites Office Visit 02/03/2002 2:20p Main Office Corky Finn M.D. 724.2 Lumbago V04.8 Need For Vaccination & Inoculation Other Viral Diseases Office Visit 12/23/2001 9:30a Main Office Kamlesh Castellanos-C Office Visit 10/15/2001 11:10a Main Office Rios Capps M.D. Office Visit 01/30/2001 2:40p Main Office Haroon Paris M.D. Office Visit 12/12/2000 11:00a [facility] Haroon Paris M.D. Office Visit 11/12/2000 4:00p [facility] Haroon Paris M.D. Plan of Treatment 09/05/2018 - [place] Dupont, [id number] CoughNew Medication:Doxycycline Hyclate 100 mg - 1 by mouth twice a day for coughNew Xrays:Chest 2 Views, Ordered: 09/05Comments:Call or return if you develop new fever, trouble breathing, sudden worsening, or pain in the ears, face, or chest . While the symptoms of upper respiratory infections are uncomfortable and can take a long time to go away, they rarely present significant danger. Use a humidifier at night and drink plenty of fluids during the day. Ibuprofen or tylenol are good for headaches and sore throats. Other cough and cold remedies, such as guaifenesin or phenylephrine, will not help you get better any faster. They can temporarily help with symptoms, but you should only continue to take them if you actually experience some relief within a couple hours of taking a dose. It is normal to cough for 2-3 weeks. You should be re-evaluated at the office if your cough persists longer or if you have a cough with fever,wheezing, or worsening pain.I48.2 Chronic atrial fibrillationAllComments:1. Patient has been queried about patient's goals/preferences and functional/lifestyle goals at relevant visits. If relevant, describe: Has been discussed, noted above2. Treatment goals as explainedto the patient: see above3. Are there barriers to meeting treatment goals? Yes If Yes, please describe: Barriers include possible insurance limits, disease process, and difficulty with lifestyle changes4. Self -Management goals as described to the patient: Yes, see above As always, we strongly encourage a healthy diet and making physical activity a part of your every day life. If you have questions about how or where to start, please contact the office.
[2018-09-09 14:55] LABS: ABS Basophils 0.1 10^3/ul (0-0.2); ABS Lymphocytes 1.2 10^3/ul (1.0-4.8); ABS Monocytes 0.5 10^3/ul (0-0.8); ABS Neutrophils 2.5 10^3/ul (1.5-7.7); Eosinophil % 1.1 %; Hematocrit 42 % (35-47); Lymphocyte % 28.1 %; Mean Corpuscular HGB Conc 33 g/dL (31-36); Mean Corpuscular Hemoglobin 31 pg (27-31); Mean Corpuscular Volume 94 fL (80-97); Mean Platelet Volume 7.2 fL (7.4-10.4); Nucleated Red Blood Cells % 0.1; Platelet Count 204 10^3/uL (150-450); Red Cell Distribution Width 14 % (10.5-15); White Blood Count 4.3 10^3/uL (3.5-10.8)
[2018-09-09 15:15] LABS: Albumin 3.8 g/dL (3.2-5.2); Albumin/Globulin Ratio 1.2 (1-3); BUN/Creatinine Ratio 14.7 (8-20); Calcium 9.3 mg/dL (8.6-10.3); EGFR African American 67.2 (>60); EGFR Non-African American 55.5 (>60); Globulin 3.1 g/dL (2-4); Potassium 3.6 mmol/L (3.5-5.0); Total Bilirubin 0.9 mg/dL (0.2-1.0); Total Protein 6.9 g/dL (6.4-8.9)
--- NOTE | 2018-09-09 15:30 | ED ---
Respiratory - HPI Summary HPI Summary: This pt is an 88 y/o female [facility]/o cough and SOB since . Pt reports she has a nonproductive cough but has phlegm that she is unable to cough up. She states she had a fever last night and the night before. This morning she took 2 tabs of Tylenol but 1 hour later she vomited it. Pt has seen her PCP for this and was prescribed Doxycycline. - History of Current Complaint Chief Complaint: EDShortnessOfBreath Stated Complaint: SOB,THROWING UP,COUGHING PER PT Time Seen by Provider: 09/09/18 15:16 Hx Obtained From: Patient Onset/Duration: Lasting Days, Still Present Current Severity: Moderate Pain Intensity: 0 Character: Cough (Nonproductive) Sputum Amount: None Aggravating Factor(s): Nothing Alleviating Factor(s): Nothing Associated Signs and Symptoms: Fever, SOB - Allergy/Home Medications Allergies/Adverse Reactions: Allergies Allergy/AdvReac Type Severity Reaction Status Date / Time NARCOTICS Allergy ITCHING Uncoded 02/07/18 14:16 WITH MOST PAIN MEDS Home Medications: Home Medications Apixaban* [Eliquis*] 5 mg PO BID 09/09/18 [History Confirmed 09/09/18] Biotin 1,000 mcg PO DAILY 09/09/18 [History Confirmed 09/09/18] Calcium Polycarbophil TAB* [Fibercon TAB*] 625 mg PO BID 09/09/18 [History Confirmed 09/09/18] DOXYcycline CAP(*) [DOXYcycline 100MG CAP(*)] 100 mg PO BID PRN 09/09/18 [ History Confirmed 09/09/18] Diazepam TAB(*) [Valium TAB(*)] 5 mg PO BEDTIME PRN 09/09/18 [History Confirmed 09/09/18] Nitroglycerin TAB 0.4 MG* 0.4 mg SL Q5M PRN 09/09/18 [History Confirmed 09/09/18 ] Cadet-3S/Dha/Epa/Fish Oil [Fish Oil 1,200 mg Softgel] 1 cap PO DAILY 09/09/18 [ History Confirmed 09/09/18] diPHENhydraMINE PO* [Benadryl PO 25 MG TAB*] 25 mg PO DAILY PRN 09/09/18 [ History Confirmed 06/03/19] PMH/Surg Hx/FS Hx/Imm Hx Endocrine/Hematology History: Reports: Hx Thyroid Disease - HYPO, Hx Anemia Denies: Hx Diabetes Cardiovascular History: Reports: Hx Coronary Artery Disease - ONE CORONARY STENT SINCE 2005, Hx Hypercholesterolemia, Hx Hypertension, Other Cardiovascular Problems/Disorders - HX A FIB Denies: Hx Angina, Hx Myocardial Infarction, Hx Pacemaker/ICD, Hx Valvular Heart Disease Respiratory History: Denies: Hx Asthma, Hx Chronic Obstructive Pulmonary Disease (COPD), Other Respiratory Problems/Disorders GI History: Reports: Hx Gastroesophageal Reflux Disease Denies: Other GI Disorders History: Reports: Hx Kidney Stones - BILATERAL Denies: Hx Renal Disease - KIDNEY STONES, Other Problems/Disorders Musculoskeletal History: Reports: Hx Arthritis, Hx Back Problems Denies: Other Musculoskeletal History Sensory History: Reports: Hx Cataracts - EZEKIEL, Hx Contacts or Glasses - GLASSES, Hx Glaucoma Denies: Hx Hearing Aid Opthamlomology History: Reports: Hx Cataracts - EZEKIEL, Hx Contacts or Glasses - GLASSES, Hx Glaucoma Neurological History: Reports: Hx Migraine Denies: Other Neuro Impairments/Disorders Psychiatric History: Denies: Hx Panic Disorder - Cancer History Hx Chemotherapy: No - Surgical History Surgery Procedure, Year, and Place: 12/2014, GALLBLADDER, [facility] STENT 12/2005 [facility]. HYSTERECTOMY, [facility] BILATERAL BUNIONECTOMY-1981. TONSILECTOMY, AGE 30. APPENDECTOMY, AGE 12. RIGHT SHOULDER 1994, [facility] Hx Anesthesia Reactions: No Infectious Disease History: No Infectious Disease History: Denies: Traveled Outside the [place] in Last 30 Days - Family History Known Family History: Positive: Hypertension - Social History Alcohol Use: None Substance Use Type: Reports: None Smoking Status (MU): Never Smoked Tobacco Have You Smoked in the Last Year: No Review of Systems Positive: Fever - yesterday Positive: Shortness Of Breath, Cough Positive: Vomiting, Nausea All Other Systems Reviewed And Are Negative: Yes Physical Exam - Summary Physical Exam Summary: VITAL SIGNS: Reviewed. GENERAL: Patient is a well-developed and nourished female who is lying comfortable in the stretcher. Patient is not in any acute respiratory distress. HEAD AND FACE: No signs of trauma. No ecchymosis, hematomas or skull depressions. No sinus tenderness. EYES: PERRLA, EOMI x 2, No injected conjunctiva, no nystagmus. EARS: Hearing grossly intact. Ear canals and tympanic membranes are within normal limits. MOUTH: Oropharynx within normal limits. NECK: Supple, trachea is midline, no adenopathy, no JVD, no carotid bruit, no c- spine tenderness, neck with full ROM. CHEST: Symmetric, no tenderness at palpation LUNGS: Crackles in both bases of the lungs. Decreased breath sounds. CVS: Regular rate and rhythm, S1 and S2 present, no murmurs or gallops appreciated. ABDOMEN: Soft, non-tender. No signs of distention. No rebound no guarding, and no masses palpated. Bowel sounds are normal. EXTREMITIES: FROM in all major joints, no edema, no cyanosis or clubbing. NEURO: Alert and oriented x 3. No acute neurological deficits. Speech is normal and follows commands. SKIN: Dry and warm Triage Information Reviewed: Yes Vital Signs On Initial Exam: Initial Vitals Temp Pulse Resp BP Pulse Ox 97.9 F 106 18 134/84 94 09/09/18 12:41 09/09/18 12:41 09/09/18 12:41 09/09/18 12:41 09/09/18 12:41 Vital Signs Reviewed: Yes Diagnostics - Vital Signs Vital Signs Temp Pulse Resp BP Pulse Ox 09/09/18 12:41 97.9 F 106 18 134/84 94 - Laboratory Lab Results: Lab Results 09/09/18 09/09/18 09/09/18 Range/Units 14:44 14:44 14:44 WBC 4.3 (3.5-10.8) 10^3/uL RBC 4.50 (3.70-4.87) 10^6 /uL Hgb 14.0 (12.0-16.0) g/dL Hct 42 (35-47) % MCV 94 (80-97) fL MCH 31 (27-31) pg MCHC 33 (31-36) g/dL RDW 14 (10.5-15) % Plt Count 204 (150-450) 10^3/uL MPV 7.2 L (7.4-10.4) fL Neut % (Auto) 58.6 % Lymph % (Auto) 28.1 % White % (Auto) 11.0 % Eos % (Auto) 1.1 % Baso % (Auto) 1.2 % Absolute Neuts (auto) 2.5 (1.5-7.7) 10^3/ul Absolute Lymphs (auto) 1.2 (1.0-4.8) 10^3/ul Absolute Monos (auto) 0.5 (0-0.8) 10^3/ul Absolute Eos (auto) 0.0 (0-0.6) 10^3/ul Absolute Basos (auto) 0.1 (0-0.2) 10^3/ul Absolute Nucleated RBC 0.0 10^3/ul Nucleated RBC % 0.1 Sodium 141 (135-145) mmol/L Potassium 3.6 (3.5-5.0) mmol/L Chloride 106 (101-111) mmol/L Carbon Dioxide 27 (22-32) mmol/L Anion Gap 8 (2-11) mmol/L BUN 14 (6-24) mg/dL Creatinine 0.95 (0.51-0.95) mg/dL Est GFR ( Amer) 67.2 (>60) Est GFR (Non-Af Amer) 55.5 (>60) BUN/Creatinine Ratio 14.7 (8-20) Glucose 113 H (70-100) mg/dL Lactic Acid 1.0 (0.5-2.0) mmol/L Calcium 9.3 (8.6-10.3) mg/dL Total Bilirubin 0.90 (0.2-1.0) mg/dL AST 24 (13-39) U/L ALT 17 (7-52) U/L Alkaline Phosphatase 107 H (34-104) U/L Troponin I 0.00 (<0.04) ng/mL Total Protein 6.9 (6.4-8.9) g/dL Albumin 3.8 (3.2-5.2) g/dL Globulin 3.1 (2-4) g/dL Albumin/Globulin Ratio 1.2 (1-3) Result Diagrams: 09/09/18 14:44 09/09/18 14:44 Lab Statement: Any lab studies that have been ordered have been reviewed, and results considered in the medical decision making process. - Radiology Chest XR Radiology Interpretation Completed By: Radiologist Summary of Radiographic Findings: IMPRESSION: No active cardiopulmonary disease. Dr. Webb has reviewed this report. - EKG 14:08 Cardiac Rate: NL - at 98 bpm EKG Rhythm: Atrial Fibrillation Summary of EKG Findings: No ST elevations. Re-Evaluation - Re-Evaluation First Eval Re-Evaluation Time: 18:46 Change: Improved Comment: Patient is feeling better. Reviewed the lab and XR results with the pt. She will be discharged home with follow up from her PCP. Disposition - Course Assessment/Plan: This pt is an 88 y/o female presenting to [facility] c/o cough and SOB since 09/05/18. Pt reports she has a nonproductive cough but has phlegm that she is unable to cough up. She states she had a fever last night and the night before. This morning she took 2 tabs of Tylenol but 1 hour later she vomited it. Pt has seen her PCP for this and was prescribed Doxycycline. Past medical history significant for coronary artery disease, dyslipidemia, hypertension, atrial fibrillation, sepsis including cholecystitis. Blood tests without any significant abnormality except for glucose of 113, CRP of 35.9, and alkaline phosphatase of 107. The white blood cell count is normal. Chest x-ray impression: No active cardiopulmonary disease. The patient was given a DuoNeb and Mucinex and the symptoms improved. She will continue taking the doxycycline for her resolving pneumonia. Therefore since the patient is feeling better the patient will be discharged home with follow-up from her primary care physician. Patient was given instructions to return to the emergency department if she develops any fever, more cough, weakness, or feeling worse. The patient understands and agrees. Patient was given prescriptions for Mucinex and Robitussin. Patient is hemodynamically stable, alert and oriented x3. - Diagnoses Provider Diagnoses: Non-productive cough, Pneumonia Discharge - Sign-Out/Discharge Documenting (check all that apply): Patient Departure - Discharge home Patient Received Moderate/Deep Sedation with Procedure: No - Discharge Plan Condition: Stable Disposition: HOME Prescriptions: guaiFENesin ER TAB [Mucinex*] 600 mg PO BID #10 tab.er guaiFENesin/CODIEN 100MG-10MG* [Robitussin AC 100Mg-10Mg*] 5 ml PO Q6H PRN #60 ml MDD 20 ml PRN Reason: Cough Patient Education Materials: Pneumonia (ED), Acute Cough (ED) Referrals: Corky Finn MD [Primary Care Provider] - Additional Instructions: FOLLOW UP WITH YOUR PRIMARY CARE PROVIDER IN 2-3 DAYS. RETURN TO THE EMERGENCY DEPARTMENT FOR ANY WORSENING OR NEW SYMPTOMS. - Attestation Statements Document Initiated by [place]: Yes Documenting Scribe: Bruna Ordoñez Provider For Whom Scribe is Documenting (Include Credential): Bobby Webb MD Scribe Attestation: IBruna, scribed for Bobby Webb MD on 09/09/18 at 1902. Status of Scribe Document: Ready
[2018-09-09] MEDS ORDERED: Albuterol/Ipratropium NEB.SOL* Albuterol 2.5 MG/Ipratropium 0.5 MG 3 ML INH ONE (16:24)
[2018-09-09] MEDS ORDERED: guaiFENesin ER TAB 600 MG PO ONE (16:24)
[2018-09-09 17:04] LABS: C Reactive Protein 35.96 mg/L (<8.01)
[2018-09-09] MEDS ORDERED: guaiFENesin/CODIEN 100MG-10MG* 5 ML UDC PO ONE (18:49)
[2018-09-09 19:16] VITALS: BP 139/105
== END 2018-09-09 19:28 | disposition home or self-care (01) ==
LOC: ED 12:36
DX: J18.9 Pneumonia, unspecified organism (principal); I10 Essential (primary) hypertension; I48.91 Unspecified atrial fibrillation; I25.10 Atherosclerotic heart disease of native coronary artery without angina pectoris; E03.9 Hypothyroidism, unspecified; E78.00 Pure hypercholesterolemia, unspecified; K21.9 Gastro-esophageal reflux disease without esophagitis; R94.31 Abnormal electrocardiogram [ECG] [EKG]; Z88.5 Allergy status to narcotic agent; Z79.01 Long term (current) use of anticoagulants; Z95.5 Presence of coronary angioplasty implant and graft
CPT/HCPCS: 36415; 71045; 80053; 83605; 84484; 85025; 86140; 87040; 93005; 99284; A9270-GY

== ENCOUNTER 2018-09-16 15:13 | Inpatient (IN) | payer MEDICARE ==
--- OUTSIDE RECORDS SUMMARY | 2018-09-16 15:34 | XMS REPORT | Continuity of Care Document ---
:1930 External Reference #:[id number] Author Name Mag Liorgie Care Team Providers Name Role Phone Corky Finn MD Primary Care Physician Unavailable Payers Date Identification Numbers Payment Provider Subscriber Policy Number: [id number] [employer] Lynette Hess PayID: [id number] [address] [place] [address] Problems Active Problems Provider Date Coronary arteriosclerosis Zeynep Hartman, N.Rosalba Onset: 08/09/2011 Benign essential hypertension Zeynep Hartman NShaniqua Onset: 08/09/2011 Hyperlipidemia Zeynep Hartman NShaniqua Onset: 08/09/2011 Chest pain Shayna Gonzalez M.D. Onset: 08/30/2011 Dyspnea Shayna Gonzalez M.D. Onset: 08/30/2011 Patient post percutaneous transluminal Shayna Gonzalez M.D. Onset: coronary angioplasty Electrocardiogram abnormal Shayna Gonzalez M.D. Onset: 09/11/2012 Premature beats Shayna Gonzalez M.D. Onset: 09/11/2012 Spinal stenosis of lumbar region Vaughn Motta M.D. Onset: 09/01/2016 Essential hypertension Shayna Gonzalez M.D. Onset: 09/28/2015 Chronic atrial fibrillation Shayna Gonzalez M.D. Onset: 09/28/2015 Atrial fibrillation Brad Emerson.D. Onset: 12/22/2013 Family History Date Family Member(s) Observation Comments : (age 79 Years) Mother due to [place] Social History Type Date Description Comments Sex Unknown Marital Status Lives With Alone Occupation Retired ETOH Use Never used alcohol Tobacco Use Start: Unknown Patient has never smoked Recreational Drug Use Never Used Drugs Smoking Status Reviewed: 09/16/18 Patient has never smoked Exercise Type/Frequency Exercises sporadically Allergies, Adverse Reactions, Alerts Active Allergies Reaction Severity Comments Date Codeine itching 10/18/2005 Darvocet itching 08/09/2011 Tape red , itch at site tape worn for long period of 01/09/2014 time per patient Medications Active Medications SIG Qnty Indications Ordering Provider Date Eliquis 1 by mouth twice 60tabs Qutaybeh S. 02/07/2017 5mg Tablets a day Tari Gonzalez Aspirin Low Dose take 1 tab po R06.02 Qutaybneville S. 01/09/2014 81mg daily Tari Gonzalez Tablets Nitroquick 1 S/l prn chest 25tabs Stormytaybneville S. 01/04/2006 0.4mg pain, q 5 min. Tari Gonzalez Tablets up to 3 tabs Valium 1 po prn Stormytaybneville S. 10/17/2005 5mg Tablets Tari Gonzalez Toprol XL 1/2 tablet by 90tabs Shayna S. 25mg Tablets mouth twice a Tari Gonzalez ER 24HR day Fish Oil 1 po bid Unknown 1200mg Oil Fiber Formula 2 cap po daily Unknown Capsules Simvastatin 1 by mouth every 90tabs Qutaybeh S. 20mg day Tari Gonzalez Tablets Biotin 2 tabs daily Unknown 5000mcg Tablets Benadryl Allergy as needed Unknown 25mg Tablets History Medications Meloxicam 1 by mouth 30tabs M48.06 Vaughn Motta, 09/01/2016 - 15mg every day M.DGerald 10/04/2017 Tablets Simvastatin 1 by mouth 90tabs Qutaybeh S. 11/17/2015 - 40mg every day Tari Gonzalez 09/01/2016 Tablets Simvastatin 1 by mouth Qutaybeh S. 09/30/2015 [facility] Tablets bedtime Xarelto 1 by mouth 30tabs Qutaybeh S. 09/30/2014 - 15mg Tablets every day Tari Gonzalez 02/06/2017 Lovenox sc twice a day 10syringe tayb S. 09/25/2014 - 60mg/0.6ML Tari Gonzalez 09/27/2015 Solution Digoxin 1 by mouth 90tabs Qutayb S. 01/02/2014 - 125mcg every day Tari Gonzalez 09/28/2015 Tablets Xarelto 1 by mouth 30tabs Qutaybeh S. 01/02/2014 - 20mg Tablets every day Tari Gonzalez 09/30/2014 Lasix 1 po qd 30tabs Qutaybeh S. 08/30/2011 - 20mg Tablets aTri Goznalez 09/11/2012 Imdur 1 po qd 30tabs Esther 08/09/2011 - 30mg Tablets ER Christian Billings 08/16/2011 24HR Imdur 1 po qd 90tabs Qutaybeh S. 01/16/2007 - 30mg Tablets ER Tari Gonzalez 04/15/2007 24HR Vytorin 1 po qd 90tabs Qutaybeh S. 01/16/2007 - 10-80mg Tari Gonzalez 08/19/2010 Tablets Prevacid 1 po qd Qutaybeh S. 08/28/2006 - 30mg Tari Gonzalez 09/09/[address] [place] 1 po qd 90tabs Qutaybeh S. 08/28/2006 - 25mg Tablets Tari Gonzalez 04/15/2007 Vytorin 1 po qd 90tabs Qutaybeh S. 01/25/2006 - 10mg;40 mg Tari Gonzalez 01/16/2007 Tablets Aspirin 1 PO qd Qutaybeh S. 01/04/2006 - 325mg Tablets Tari Gonzalez 01/09/2014 Plavix 1 po qd 90tabs Qutaybeh S. 01/04/2006 - 75mg Tablets Tari Gonzalez 01/02/2014 Lisinopril 1 PO qd 90tabs Qutaybeh S. 01/04/2006 - 2.5mg Tari Gonzalez 08/28/2006 Tablets Vytorin 1 po qd 30tabs Qutaybeh S. 11/29/2005 - 10mg;20 mg Tari Gonzalez 01/25/2006 Tablets Toprol XL 1 PO qd 30tabs Stormytaybeh S. 11/29/2005 - 25mg Tari Gonzalez 08/28/2006 Tablets Quinidine Sulfate prn Shayna S. 10/17/2005 - Tari Gonzalez 08/27/2008 260mg Tablets Lipitor 1 po qd 30tabs Stormytaybeh S. 10/17/2005 - 10mg Tablets Tari Gonzalez 11/29/2005 Advil prn Shayna S. 10/17/2005 - 200mg Tablets Tari Gonzalez 08/09/2011 Aciphex 1 PO qd 30tabs Stormytaybeh S. 10/17/2005 - 20mg Tablets Tari Gonzalez 08/28/2006 Prevacid OTC 1 po qd Unknown - 15mg 08/09/2011 Capsules Simvastatin 1 by mouth 90tabs Qutaybeh S. - 80mg every night at Tari Gonzalez 11/17/2015 Tablets bedtime Prilosec 1 po qd 30caps Unknown - 20mg 10/22/2012 Capsules Lansoprazole 1 by mouth 30caps Unknown - 15mg every day Am 08/31/2014 Capsules Hydrocodone-Acetamin 1 tabs by mouth Unknown - ophen every 4- 6 09/16/2018 5-325mg Tablets hours as needed pain Vital Signs Date Vital Result Comment 09/16/2018 1:11pm Height 62 inches 5'2" Weight 143.12 lb with shoes Heart Rate 100 /min radial, irregular BP Systolic Sitting 120 mmHg LA, reg cuff BP Diastolic Sitting 82 mmHg LA, reg cuff BP Systolic Standing 116 mmHg LA, reg cuff BP Diastolic Standing 72 mmHg LA, reg cuff O2 % BldC Oximetry 96 % Ra BMI (Body Mass Index) 26.2 kg/m2 Ejection Fraction 50%-55% echo 10/23/16 10/05/2017 2:06pm Height 62 inches 5'2" Weight 160.38 lb w/shoes Heart Rate 70 /min BP Systolic Sitting 124 mmHg lue reg cuff BP Diastolic Sitting 84 mmHg lue reg cuff BMI (Body Mass Index) 29.3 kg/m2 Ejection Fraction 50-55% echo 10/23/2016 09/22/2016 1:18pm Height 62 inches 5'2" Weight 160.00 lb with shoes Heart Rate 78 /min BP Systolic 128 mmHg LA reg cuff BP Diastolic 86 mmHg LA reg cuff BMI (Body Mass Index) 29.3 kg/m2 Ejection Fraction 50%- 55% echocardiogram 12/29/13 09/01/2016 11:01am Height 62 inches 5'2" Weight 160.00 lb Heart Rate 77 /min BP Systolic Sitting 162 mmHg BP Diastolic Sitting 96 mmHg Pain Level 7 L Lower back BMI (Body Mass Index) 29.3 kg/m2 09/28/2015 10:55am Height 62 inches 5'2" Weight 150.75 lb w/shoes Heart Rate 60 /min BP Systolic Sitting 116 mmHg LA reg cuff BP Diastolic Sitting 78 mmHg LA reg cuff BMI (Body Mass Index) 27.6 kg/m2 Ejection Fraction 50-55% Echo 12/29/13 09/01/2014 10:43am Height 62 inches 5'2" Weight 146.50 lb w/shoes Heart Rate 66 /min BP Systolic Sitting 122 mmHg LA reg cuff BP Diastolic Sitting 86 mmHg LA reg cuff Respiratory Rate 12 /min BMI (Body Mass Index) 26.8 kg/m2 Ejection Fraction 50-55 echo 12/29/13 01/09/2014 9:37am Height 62 inches 5'2" Weight 150.00 lb with shoes Heart Rate 66 /min BP Systolic Sitting 120 mmHg Ra reg cuff BP Diastolic Sitting 90 mmHg Ra reg cuff BP Systolic Standing 126 mmHg Ra reg cuff BP Diastolic Standing 90 mmHg Ra reg cuff Respiratory Rate 16 /min BMI (Body Mass Index) 27.4 kg/m2 12/22/2013 2:32pm Height 63 inches 5'3" Weight 161.50 lb w/shoes Heart Rate 78 /min BP Systolic Sitting 124 mmHg BP Diastolic Sitting 88 mmHg Respiratory Rate 15 /min BMI (Body Mass Index) 28.6 kg/m2 10/22/2012 10:03am Height 63 inches 5'3" Weight 161.00 lb Heart Rate 60 /min BP Systolic Sitting 140 mmHg BP Diastolic Sitting 80 mmHg Respiratory Rate 16 /min BMI (Body Mass Index) 28.5 kg/m2 09/11/2012 2:11pm Height 63 inches 5'3" Weight 162.00 lb Heart Rate 76 /min BP Systolic Sitting 112 mmHg BP Diastolic Sitting 74 mmHg Respiratory Rate 20 /min BMI (Body Mass Index) 28.7 kg/m2 09/20/2011 2:18pm Height 63 inches 5'3" Weight 161.00 lb Heart Rate 60 /min BP Systolic Sitting 108 mmHg BP Diastolic Sitting 64 mmHg BMI (Body Mass Index) 28.5 kg/m2 08/30/2011 3:10pm Height 63 inches 5'3" Weight 165.00 lb Heart Rate 64 /min BP Systolic Sitting 152 mmHg BP Diastolic Sitting 80 mmHg BMI (Body Mass Index) 29.2 kg/m2 08/16/2011 11:16am Height 63 inches 5'3" Weight 166.00 lb Heart Rate 60 /min BP Systolic Sitting 126 mmHg BP Diastolic Sitting 86 mmHg BMI (Body Mass Index) 29.4 kg/m2 08/09/2011 1:52pm Weight 163.00 lb Heart Rate 58 /min BP Systolic Sitting 130 mmHg BP Diastolic Sitting 80 mmHg 10/07/2010 9:56am Height 63 inches 5'3" Weight 167.00 lb Heart Rate 61 /min BP Systolic Sitting 124 mmHg L BP Diastolic Sitting 72 mmHg L BMI (Body Mass Index) 29.6 kg/m2 01/06/2010 3:19pm Height 63 inches 5'3" Weight 161.00 lb Heart Rate 72 /min BP Systolic Sitting 118 mmHg BP Diastolic Sitting 78 mmHg BP Systolic Standing 118 mmHg BP Diastolic Standing 78 mmHg BMI (Body Mass Index) 28.5 kg/m2 09/09/2009 11:01am Height 63 inches 5'3" Weight 162.00 lb Heart Rate 63 /min BP Systolic 120 mmHg BP Diastolic 70 mmHg Respiratory Rate 16 /min O2 % BldC Oximetry 99 % BMI (Body Mass Index) 28.7 kg/m2 08/27/2008 1:11pm Height 63 inches 5'3" Weight 157.00 lb Heart Rate 58 /min BP Systolic Sitting 118 mmHg L BP Diastolic Sitting 76 mmHg L BMI (Body Mass Index) 27.8 kg/m2 01/09/2008 8:22am Height 63 inches 5'3" Weight 160.00 lb Heart Rate 64 /min BP Systolic Sitting 124 mmHg L BP Diastolic Sitting 70 mmHg L BMI (Body Mass Index) 28.3 kg/m2 08/14/2007 10:52am Height 63 inches 5'3" Weight 157.00 lb Heart Rate 58 /min BP Systolic Sitting 140 mmHg L BP Diastolic Sitting 70 mmHg L BMI (Body Mass Index) 27.8 kg/m2 01/16/2007 11:16am Height 63 inches 5'3" Weight 154.00 lb Heart Rate 60 /min BP Systolic Sitting 120 mmHg L BP Diastolic Sitting 70 mmHg L BMI (Body Mass Index) 27.3 kg/m2 08/28/2006 2:00pm Height 63 inches 5'3" Weight 152.00 lb Heart Rate 59 /min BP Systolic Sitting 110 mmHg BP Diastolic Sitting 60 mmHg BMI (Body Mass Index) 26.9 kg/m2 02/28/2006 8:53am Height 63 inches 5'3" Heart Rate 62 /min reg BP Systolic Sitting 104 mmHg BP Diastolic Sitting 70 mmHg 02/19/2006 10:29am Height 63 inches 5'3" Weight 149.00 lb Heart Rate 66 /min BP Systolic Sitting 102 mmHg BP Diastolic Sitting 70 mmHg Respiratory Rate 16 /min BMI (Body Mass Index) 26.4 kg/m2 01/25/2006 1:35pm Height 63 inches 5'3" Weight 152.00 lb Heart Rate 54 /min BP Systolic Sitting 120 mmHg BP Diastolic Sitting 70 mmHg BMI (Body Mass Index) 26.9 kg/m2 01/04/2006 3:13pm Height 63 inches 5'3" Weight 153.00 lb Heart Rate 64 /min BP Systolic Sitting 120 mmHg L BP Diastolic Sitting 80 mmHg L BMI (Body Mass Index) 27.1 kg/m2 11/29/2005 2:21pm Height 63 inches 5'3" Heart Rate 60 /min reg BP Systolic Sitting 110 mmHg BP Diastolic Sitting 70 mmHg 10/18/2005 2:36pm Height 63 inches 5'3" Weight 156.00 lb Heart Rate 65 /min BP Systolic Sitting 120 mmHg L BP Diastolic Sitting 80 mmHg L BMI (Body Mass Index) 27.6 kg/m2 Results Test Date Facility Test Result H/L Range Note Basic Metabolic 11/12/2015 [facility] Sodium 141 mmol/L N 133- 145 Panel [address] [place] [address] [phone] Potassium 3.6 mmol/L N 3.5-5.0 Chloride 105 mmol/L N 101-111 Co2 Carbon Dioxide 30 mmol/L N 22-32 Anion Gap 6 mmol/L N 2-11 Glucose 104 mg/dL High 70-100 Blood Urea Nitrogen 19 mg/dL N 6-24 Creatinine 1.02 mg/dL High 0.51-0.95 BUN/Creatinine Ratio 18.6 N 8-20 Calcium 9.3 mg/dL N 8.6-10.3 Egfr Non- 51.5 N >60 Egfr 66.2 N >60 1 Laboratory test 10/08/2014 [facility] Digoxin 1.5 ng/ml N 0.8- 2.0 finding [address] [place] [address] [phone] CBC No Diff 10/17/2012 [facility] White Blood 8.0 10^3/uL 4.8 -10.[address] [place] [address] [phone] Red Blood Count 4.95 10^6/uL 4.0-5.4 Hemoglobin 14.9 g/dL 12.0-16.0 Hematocrit 46 % 35-47 Mean Corpuscular Volume 92 fL 80-97 Mean Corpuscular Hemoglobin 30 pg 27-31 Mean Corpuscular HGB Conc 33 g/dL 31-36 Red Cell Distribution Width 13 % 10.5-15 Platelet Count 223 10^3/uL 150-450 Mean Platelet Volume 8 um3 7.4-10.4 Basic Metabolic Panel 10/17/2012 [facility] Sodium 141 mmol/L 133-145 [address] [place] [address] [phone] Potassium 3.6 mmol/L 3.5-5.0 Chloride 109 mmol/L 101-111 Co2 Carbon Dioxide 25.0 mmol/L 22-32 Anion Gap 7.0 mmol/L 2-11 Glucose 131 mg/dL High 70-100 Blood Urea Nitrogen 22 mg/dL 6-24 Creatinine 0.90 mg/dL 0.50-1.40 BUN/Creatinine Ratio 24.4 High 8-20 Calcium 9.6 mg/dL 8.1-9.9 Egfr Non- 59.9 >60 Egfr 77.1 >60 2 Laboratory test 10/17/2012 [facility] TSH (Thyroid 3.34 0.34- 5.[address] Stimulating miu/[place] [address] Horm) [phone] Cath Panel 09/06/2011 [facility] PTT (Aptt) 26.1 SEC 25.1- 38.[address] [place] [address] [phone] CBC With Manual 09/06/2011 [facility] White Blood 6.7 CUMM 4.8-10.[address] [place] [address] [phone] Red Cell Count 4.27 CUMM 4.2-5.4 Hemoglobin 13.6 g/dL 12.0-16.0 Hematocrit 40 % 35-47 Mean Corpuscular Volume 93 um3 79-97 Mean Corpuscular Hemoglob 32 pg High 27-31 Mean Corpuscular HGB Cone 34 g/dL 32-36 Redcell Distribution WDTH 13 % 10.5-15 Platelet Count 219 CUMM 150-450 Mean Platelet Volume 7.8 um3 7.4-10.4 Absolute Neutrophil Count 3.2 1.5-7.7 Polysegmented Neutrophil 46 % 38-83 Band Neutrophil 1 % 0-8 Lymphocyte 43 % 25-47 Monocyte 3 % 0-13 Eosinophil 5 % 0-6 Basophil 1 % 0-2 Atypical Lymph 1 % 0-6 RBC Morphology NORMAL Basic Metabolic Panel 09/06/2011 [facility] Sodium 141 mmol/L 135-[address] [place] [address] [phone] Potassium 4.0 mmol/L 3.5-5.0 Chloride 107 mmol/L 101-111 Co2 (Carbon Dioxide) 27.0 mmol/L 22-32 Anion Gap 7.0 mmol/L 2-11 3 Glucose 110 mg/dL High 70-100 BUN 26 mg/dL High 6-24 Creatinine 1.2 mg/dL 0.50-1.40 One Over Creatinine 0.83 BUN/Creatinine Ratio 21.7 High 8-20 Calcium 8.9 mg/dL 8.1-9.9 eGFR Non- 43.1 > 60 eGFR 55.4 > 60 4 Protime 09/06/2011 [facility] Inr 0.87 Low 0.88-1.13 5 [address] [place] [address] [phone] Protime 10.3 SEC 10.3-13.5 6 Lipid Profile 10/06/2010 [facility] Triglyceride 130 mg/dL 40 -200 (Trig/Chol/HDL) [address] [place] [address] [phone] Cholesterol 147 mg/dL Less Than 200 7 High Density Lipoprotein 42 mg/dL 40-60 8 Low Density Lipoprotein 79 mg/dL Less Than 100 9 Cholesterol/HDL Ratio 3.50 AVERAGE 1-4.44 Laboratory test finding 10/06/2010 [facility] Alt (SGPT) 23 U/L 14-54 [address] [place] [address] [phone] Ast (Sgot) 23 U/L 12-42 CPK (Creatine Kinase) 89 U/L 0-170 Lipid Profile 08/18/2010 [facility] Triglyceride 136 mg/dL 40 -200 (Trig/Chol/HDL) [address] [place] [address] [phone] Cholesterol 130 mg/dL Less Than 200 10 High Density Lipoprotein 35 mg/dL Low 40-60 11 Cholesterol/HDL Ratio 3.71 AVERAGE 1-4.44 Low Density Lipoprotein 68 mg/dL Less Than 100 12 Laboratory test finding 08/18/2010 [facility] Ast (Sgot) 28 U/L 12-42 [address] [place] [address] [phone] Alt (SGPT) 27 U/L 14-54 CPK (Creatine Kinase) 149 U/L 0-170 Cath Panel 12/30/2009 [facility] PTT (Aptt) 28.5 25.15-38.53 [address] [place] [address] [phone] CBC With 12/30/2009 [facility] White Blood 6.7 CUMM 4.8-10.8 Manual Diff [address] [facility] [place] [address] [phone] Red Cell Count 4.19 CUMM Low 4.2-5.4 [...] Neutrophil Count 3.9 Anisocytosis SLIGHT Ovalocytes FEW Basic Metabolic Panel 12/30/2009 [facility] Sodium 144 mmol/L 135-[address] [place] [address] [phone] Potassium 3.9 mmol/L 3.5-5.0 Chloride 108 mmol/L 101-111 Co2 (Carbon Dioxide) 28.0 mmol/L 22-32 Anion Gap 8.0 mmol/L 2-11 13 Glucose 124 mg/dL High 70-100 14 BUN 14 mg/dL 6-24 Creatinine 1.00 mg/dL 0.50-1.40 One Over Creatinine 1.00 BUN/Creatinine Ratio 14.0 8-20 Calcium 8.9 mg/dL 8.1-9.9 eGFR Non- 56.8 > 60 eGFR 68.8 > 60 15 Protime 12/30/2009 [facility] Inr 0.98 0.82-1.[address] [place] [address] [phone] Protime 11.5 SEC 10.2-14.8 17 Liver Function 12/16/2009 [facility] Total Protein 6.4 GM/DL 6.2-8.[address] [place] [address] [phone] Albumin 3.8 GM/DL 3.2-5.2 Globulin 2.6 GM/DL 2-4 Albumin/Globulin Ratio 1.5 1-3 Bilirubin Total 1.0 mg/dL 0.4-1.5 18 Bilirubin Direct 0.1 mg/dL 0.1-0.5 Indirect Bilirubin 0.9 mg/dL 0.3-1.0 19 Alkaline Phosphatase 74 U/L 30-110 Alt (SGPT) 22 U/L 14-54 Ast (Sgot) 23 U/L 12-42 Basic Metabolic Panel 12/16/2009 [facility] Sodium 143 mmol/L 135-[address] [place] [address] [phone] Potassium 4.4 mmol/L 3.5-5.0 Chloride 109 mmol/L 101-111 Co2 (Carbon Dioxide) 28.0 mmol/L 22-32 Anion Gap 6.0 mmol/L 2-11 20 Glucose 91 mg/dL 70-100 21 BUN 15 mg/dL 6-24 Creatinine 1.10 mg/dL 0.50-1.40 One Over Creatinine 0.90 BUN/Creatinine Ratio 13.6 8-20 Calcium 9.2 mg/dL 8.1-9.9 eGFR Non- 50.9 > 60 eGFR 61.6 > 60 22 Laboratory test 12/16/2009 [facility] Thyroxine Free 0.60 NG/ML Low 0.61-1.[address] [place] [address] [phone] T3 Total 0.97 NG/ML 0.5-1.7 TSH 2.84 MIU/ML 0.34-5.60 Rheumatoid Factor < 20.0 IU/mL Less Than 20 CBC With 12/16/2009 [facility] White Blood 8.4 CUMM 4.8-10.8 Electronic Diff [address] [place] [address] [phone] Red Cell Count 4.15 CUMM Low 4.2-5.4 [...] 0-0.6 Abs Basophils 0.1 0-0.2 Laboratory test 12/16/2009 [facility] Erythrocyte Sed 5 MM/HR 0-[address] [place] [address] [phone] Syphilis IgG NON-REACTIVE Nonreactive 23 [place] 12/16/2009 [facility] Antinuclear POSITIVE Abnormal Negative (Antinuclear [address] AB Antibodies) [place] [address] [phone] [place] Pattern NUCLEOLAR Abnormal Antinuclear AB 1:80 Abnormal Reviewed By (SEE NOTE) 24 Ssa/SSB 12/16/2009 [facility] Ssa NEGATIVE Negative [address] [place] [address] [phone] SSB NEGATIVE Negative Laboratory test 12/16/2009 [facility] Fta-Abs Igg In Non Reactive () [address] [place] [address] [phone] Complement C3 154 mg/dL 75-175 26 Complement C4 27 mg/dL 14-40 27 Lyme Disease Serology Negative Negative 28 1 Because ethnic data is not always readily [...] 15-29 5 Kidney failure <15 (or dialysis) 2 Because ethnic data is not always readily [...] 15-29 5 Kidney failure <15 (or dialysis) 3 Anion gap measurement may be of limited value in the presence of any alkalosis, especially in a combined acid base disorder. . 4 Because ethnic data is not always readily [...] 15-29 5 Kidney failure <15 (or dialysis) 5 Recommended INR for Patients on Oral Anticoagulants Prophylaxis 2.0 - 3.0 Treatment of thrombosis 2.0 - 3.0 Prevention of embolism 2.0 - 3.0 Prevention of embolism from prosthetic heart valves 2.5 - 3.5 6 DIAGNOSIS,TREATMENT,AND THERAPY MUST BE BASED ON THE INR VALUE ALONE. 7 CHOLESTEROL INTERPRETATION: Desirable: Less than 200 MG/DL Borderline-High Risk: 200-239 MG/DL High-Risk: 240 MG/DL and over 8 HDL INTERPRETATION: Undesirable: High Risk: Less than 40 MG/DL Desirable: Low Risk: Greater than 60 MG/DL 9 LDL INTERPRETATION: Low Risk Optimal Level: LDL Less than 100 MG/DL Near or Above Optimal: LDL 100-129 MG/DL Borderline High Risk: LDL 130-159 MG/DL High Risk: LDL 160-189 MG/DL Very High Risk: LDL Greater than 189 MG/DL 10 CHOLESTEROL INTERPRETATION: Desirable: Less than 200 MG/DL Borderline-High Risk: 200-239 MG/DL High-Risk: 240 MG/DL and over 11 HDL INTERPRETATION: Undesirable: High Risk: Less than 40 MG/DL Desirable: Low Risk: Greater than 60 MG/DL 12 LDL INTERPRETATION: Low Risk Optimal Level: LDL Less than 100 MG/DL Near or Above Optimal: LDL 100-129 MG/DL Borderline High Risk: LDL 130-159 MG/DL High Risk: LDL 160-189 MG/DL Very High Risk: LDL Greater than 189 MG/DL 13 Anion gap measurement may be of limited value in the presence of any alkalosis, especially in a combined acid base disorder. . 14 Note change in reference range as of 11/28/07. The change was based on recommendations from the [place] [employer]. 15 Because ethnic data is not always readily [...] 15-29 5 Kidney failure <15 (or dialysis) 16 Recommended INR for Patients on Oral Anticoagulants Prophylaxis 2.0 - 3.0 Treatment of thrombosis 2.0 - 3.0 Prevention of embolism 2.0 - 3.0 Prevention of embolism from prosthetic heart valves 2.5 - 3.5 17 DIAGNOSIS,TREATMENT,AND THERAPY MUST BE BASED ON THE INR VALUE ALONE. 18 A metabolite of Naproxen, O-desmethylnaproxen, has been shown to interfere with the Jendrassik-Pawel method for measuring total bilirubin. Samples from patients who have taken Naproxen have shown spurious elevation in total bilirubin levels. 19 Please note updated reference range, effective 10/28/09 20 Anion gap measurement may be of limited value in the presence of any alkalosis, especially in a combined acid base disorder. . 21 Note change in reference range as of 11/28/07. The change was based on recommendations from the [place]. 22 Because ethnic data is [...] 5 Kidney failure <15 (or dialysis) 23 Warning: A positive result is not useful for establishing a diagnosis of syphilis. In most situations, such a result may reflect a prior treated infection; a negative result can exclude a diagnosis of syphilis except for incubating or early primary disease. 24 REVIEWED BY AILYN MAS MD 25 -- REFERENCE VALUE -- Non Reactive Test Performed By:[facility] [address] [place] [id number] -- REFERENCE VALUE -- Non Reactive 26 Test Performed by: [facility] Dpt of Lab Med and Pathology [address] [place] [id number] [employer] Civil Engineer: Quinton Guerra III, M.D. 27 Test Performed by: [facility] Dpt of Lab Med and Pathology [address] [place] [address] [employer] Civil Engineer: Quinton Guerra III, M.D. 28 Serologic response to B. burgdorferi infection is not detected, but cannot rule out early infection during which low or undetectable antibody levels to B. burgdorferi may be present. If clinically indicated, a new serum specimen should be submitted in 7-14 days. Test Performed by: [facility] Dpt of Lab Med and Pathology [address] [place], [place] [id number] [employer] Civil Engineer: Quinton Guerra III, M.D. Procedures Date Code Description Status 09/16/2018 84997 EKG Tracing & Interpretation Completed 10/05/2017 86006 EKG Tracing & Interpretation Completed 10/23/2016 84113 ECHO Transthoracic, Real-Time 2D With Doppler And Color Completed Flow 09/22/2016 27658 EKG Tracing & Interpretation Completed 09/28/2015 16829 EKG Tracing & Interpretation Completed 09/01/2014 86457 EKG Tracing & Interpretation Completed 01/09/2014 31221 EKG Tracing & Interpretation Completed 12/30/2013 22295 Laparoscopy Cholecystectomy Completed 12/29/2013 65167 ECHO Transthorasic Realtime 2D W Doppler & Color Flow Hosp Completed 12/28/2013 53700 Treadmill Interp/Report Only Completed 12/28/2013 34109 Stress Test Supervsn W/Out I/R Completed 12/28/2013 14919 EKG, Interpretation Only Completed 12/24/2013 96090 Holter Monitor Review (24 hr)dr review & interp only Completed 12/22/2013 90854 EKG Tracing & Interpretation Completed 12/17/2012 39551 Holter Monitoring 24 HR New Completed 10/22/2012 61374 EKG Tracing & Interpretation Completed 10/17/2012 98882 Color Flow Doppler/Interp & Reprt Completed 10/17/2012 30181 Pulse Wave/Continuous-Interp.RPT Completed 10/17/2012 89588 Echocardiography, Transesophageal, Real Time W/Image 2D Completed W/W/O M-M 10/17/2012 68950 Treadmill Interp/Report Only Completed 10/17/2012 16503 Stress Test Supervsn W/Out I/R Completed 10/17/2012 90443 EKG, Interpretation Only Completed 10/17/2012 34238 Cardioversion Completed 10/03/2012 32753 ECHO Transthoracic, Real-Time 2D With Doppler And Color Completed Flow 10/02/2012 93195 Holter Monitoring 24 HR New Completed 09/11/2012 58987 EKG Tracing & Interpretation Completed 09/12/2011 96547 Left Heart Cath. Incl S/I Coronaries, Angio S/I V Gram If Completed Done 09/12/2011 35906 Cath PLMT&NJX L Ventriculog Img S&I Completed 09/12/2011 22739 Left Health Catheterization W/Inj For Left Completed Ventriculography,S&I 08/24/2011 16608 Treadmill Interp/Report Only Completed 08/24/2011 15834 Stress Test Supervsn W/Out I/R Completed 08/09/2011 51795 ECHO Transthoracic, Real-Time 2D With Doppler And Color Completed Flow 10/07/2010 50800 EKG Tracing & Interpretation Completed 12/31/2009 44244 Selective Coronary Angioplasty Completed 12/31/2009 47127 S/I/R Inj Proc Vent And Or Atrial Completed 12/31/2009 73825 Coronary Angiography Completed 12/31/2009 99231 Inj Proc LFT Vent/LFT Atrl Angio Completed 12/31/2009 64406 Left Heart Catheterization Completed 12/30/2009 99830 EKG Tracing & Interpretation Completed 12/30/2009 54118 ECHO Stress Test Incl Perf Contiuous ekg Monitoring W/Phys Completed Superv 12/28/2009 45928 ECHO Transthoracic, Real-Time 2D With Doppler And Color Completed Flow 09/09/2009 33014 EKG Tracing & Interpretation Completed 10/21/2008 93820 ECHO Transthoracic, Real-Time 2D With Doppler And Color Completed Flow 08/27/2008 17911 EKG Tracing & Interpretation Completed 12/24/2007 83263 Stress Test Completed 12/24/2007 18969 Stress Test Completed 12/24/2007 52530 Stress Test Completed 12/24/2007 01101 Echocardiogram Completed 12/24/2007 28159 Echocardiogram Completed 12/24/2007 23463 Echocardiogram Completed 12/24/2007 75690 Pulse Doppler & Continuous Wave Completed 12/24/2007 78974 Pulse Doppler & Continuous Wave Completed 12/24/2007 74743 Pulse Doppler & Continuous Wave Completed 12/24/2007 68836 Color Doppler Completed 12/24/2007 13152 Color Doppler Completed 12/24/2007 05452 Color Doppler Completed 12/24/2007 38301 ECHO/Stress Completed 12/24/2007 69958 ECHO/Stress Completed 08/14/2007 16095 EKG Tracing & Interpretation Completed 01/16/2007 85480 EKG Tracing & Interpretation Completed 01/16/2007 86554 Echocardiogram Completed 01/16/2007 25941 Echocardiogram Completed 01/16/2007 06567 Pulse Doppler & Continuous Wave Completed 01/16/2007 84553 Pulse Doppler & Continuous Wave Completed 01/16/2007 63946 Pulse Doppler & Continuous Wave Completed 01/16/2007 68612 Color Doppler Completed 01/16/2007 14209 Color Doppler Completed 01/10/2007 25313 ECHO/Stress Completed 01/10/2007 72628 Stress Test Completed 01/10/2007 53973 Stress Test Completed 08/28/2006 06248 EKG Tracing & Interpretation Completed 02/23/2006 51870 Left Heart Catheterization Completed 02/23/2006 31261 Coronary Angiography Completed 02/23/2006 59981 Coronary Angiography Completed 02/23/2006 74060 Selective Coronary Angioplasty Completed 02/19/2006 98972 EKG Tracing & Interpretation Completed 01/25/2006 58501 EKG Tracing & Interpretation Completed 12/29/2005 10276 EKG, Interpretation Only Completed 12/29/2005 92604 EKG, Interpretation Only Completed 12/29/2005 31392 Com RT And LT Catheterization Completed 12/29/2005 87706 Inj Proc LFT Vent/LFT Atrl Angio Completed 12/29/2005 54063 Inj Proc LFT Vent/LFT Atrl Angio Completed 12/29/2005 04698 Coronary Angiography Completed 12/29/2005 51374 S/I/R Inj Proc Vent And Or Atrial Completed 12/29/2005 51753 S/I/R Inj Proc Vent And Or Atrial Completed 12/29/2005 10994 Selective Coronary Angioplasty Completed 10/27/2005 56734 Stress ECHO Interpretation/Report Hospital Completed 10/27/2005 85073 Stress ECHO Interpretation/Report Hospital Completed 10/27/2005 62625 Treadmill Interp/Report Only Completed 10/27/2005 28749 Stress Test Supervsn W/Out I/R Completed 10/27/2005 68672 Stress Test Supervsn W/Out I/R Completed 10/25/2005 94278 Color Doppler Completed 10/25/2005 35313 Pulse Doppler & Continuous Wave Completed 10/25/2005 16156 Pulse Doppler & Continuous Wave Completed 10/25/2005 21943 Echocardiogram Completed 10/18/2005 06659 EKG Tracing & Interpretation Completed Encounters Type Date Location Provider Dx Diagnosis Office Visit 10/05/2017 [facility] [place] S. I48.2 Chronic atrial 2:20p Tari Gonzalez fibrillation I25.10 Athscl heart disease of [place] coronary artery w/o ang pctrs I10 Essential (primary) hypertension I71.9 Aortic aneurysm of unspecified site, without rupture I34.0 Nonrheumatic mitral (valve) insufficiency Office Visit 09/22/2016 [place] S. I48.2 Chronic atrial 1:40p Cardiology Tari Gonzalez fibrillation I25.10 Athscl heart disease of [place] coronary artery w/o ang pctrs I10 Essential (primary) hypertension R06.02 Shortness of breath Office Visit 09/01/2016 11:20a Neurosurgery Vaughn Motta, M48.06 [facility] Tari stenosis, lumbar region M51.36 Other intervertebral disc degeneration, lumbar region Office Visit 09/28/2015 [place] S. I48.2 Chronic atrial 11:20a Cardiology Tari Gonzalez fibrillation I25.10 Athscl heart disease of [place] coronary artery w/o ang pctrs I10 Essential (primary) hypertension I25.9 Chronic ischemic heart disease, unspecified Office Visit 09/01/2014 [place] S. 427.31 Atrial 10:40a Cardiology Tari Gonzalez Fibrillation 414.01 Coronary Atherosclerosis [place] 401.1 Hypertension Benign Office Visit 01/09/2014 9:30a [facility] Rachel Quinteros, 427.31 Atrial Of [facility] [place] Fibrillation 786.05 Shortness Of Breath 414.01 Coronary Atherosclerosis [place] 401.1 Hypertension Benign Office Visit 01/02/2014 [facility] Melissa 575.10 Cholecystitis 9:23p Assoclevi D.O. Unspec Hospitalists 427.31 Atrial Fibrillation 401.9 Hypertension Unspec 414.9 Ischemic Heart Disease Chronic Unspec Office Visit 01/01/2014 [facility] Melissa 575.10 Cholecystitis 9:23p Assoclevi D.O. Unspec Hospitalists 427.31 Atrial Fibrillation 401.9 Hypertension Unspec 414.9 Ischemic Heart Disease Chronic Unspec Office Visit 12/31/2013 [facility] Melissa 575.10 Cholecystitis 9:22p Asslevi hills D.O. Unspec Hospitalists 427.31 Atrial Fibrillation 401.9 Hypertension Unspec 414.9 Ischemic Heart Disease Chronic Unspec Office Visit 12/30/2013 [facility] Gregorio 575.10 Cholecystitis 12:05p levi Moon M.D. Unspec Hospitalists 427.31 Atrial Fibrillation 414.9 Ischemic Heart Disease Chronic Unspec 401.9 Hypertension Unspec Office Visit 12/29/2013 [facility] 575.10 Cholecystitis 9:22p levi Moon M.D. Unspec Hospitalists 427.31 Atrial Fibrillation 401.9 Hypertension Unspec 414.9 Ischemic Heart Disease Chronic Unspec Office Visit 12/29/2013 12:44p Gregoria Weber 427.31 Atrial Cardiology Anthony Slaughter M.D. Fibrillation Blueprint Engineer Office Visit 12/28/2013 10:09a Artemio Galvan 427.31 Atrial Cardiology Tari Mccabe Fibrillation 414.8 Ischemic Heart Disease Chronic Other Spec Forms Office Visit 12/28/2013 [facility] 575.10 Cholecystitis 9:21p levi Moon M.D. Unspec Hospitalists 427.31 Atrial Fibrillation 401.9 Hypertension Unspec 414.9 Ischemic Heart Disease Chronic Unspec Office Visit 12/27/2013 [facility] 575.10 Cholecystitis 9:18p levi Moon M.D. Unspec Hospitalists 427.31 Atrial Fibrillation 401.9 Hypertension Unspec 414.9 Ischemic Heart Disease Chronic Unspec Office Visit 12/27/2013 9:42a Artemio Galvan 427.31 Atrial Cardiology Tari Mccabe Fibrillation 414.9 Ischemic Heart Disease Chronic Unspec Office Visit 12/22/2013 [place] Shayna S. 427.31 Atrial 2:40p Elias Gonzalez M.D. Fibrillation 794.31 Electrocardiogram (ECG) (EKG) Abnormal 786.05 Shortness Of Breath 414.01 Coronary Atherosclerosis [place] 401.1 Hypertension Benign V45.82 Percutaneous Transluminal Coronary Angioplas Postsurg Status Office 10/22/2012 Artemio Corral S. 794.31 Electrocardiogram Visit 10:00a Elias Gonzalez M.D. (ECG) (EKG) Abnormal 786.05 Shortness Of Breath 427.31 Atrial Fibrillation 427.69 Premature Beats Other 414.01 Coronary Atherosclerosis [place] 401.1 Hypertension Benign V45.82 Percutaneous Transluminal Coronary Angioplas Postsurg Status Office Visit 10/17/2012 11:30a [place] [facility] [place] S. 786.50 Pain Chest Tari Gonzalez Unspec 794.31 Electrocardiogram (ECG) (EKG) Abnormal 427.69 Premature Beats Other 786.05 Shortness Of Breath 414.01 Coronary Atherosclerosis [place] 427.31 Atrial Fibrillation Office Visit 09/11/2012 [place] S. 414.01 Coronary 2:20p Elias Gonzalez M.D. Atherosclerosis [place] 401.1 Hypertension Benign V45.82 Percutaneous Transluminal Coronary Angioplas Postsurg Status 272.4 Hyperlipidemia Other Unspec 794.31 Electrocardiogram (ECG) (EKG) Abnormal 427.69 Premature Beats Other 786.05 Shortness Of Breath 786.50 Pain Chest Unspec Office Visit 09/20/2011 2:40p [place] [facility] [place] S. 786.50 Pain Chest AT [facility] Tari Gonzalez Unspec 414.01 Coronary Atherosclerosis [place] 401.1 Hypertension Benign V45.82 Percutaneous Transluminal Coronary Angioplas Postsurg Status 272.4 Hyperlipidemia Other Unspec Office Visit 09/12/2011 11:30a [place] [facility] [place] S. 786.50 Pain Chest Tari Gonzalez Unspec 414.01 Coronary Atherosclerosis [place] 401.1 Hypertension Benign 786.05 Shortness Of Breath Office Visit 08/30/2011 3:20p [place] [facility] [place] S. 786.50 Pain Chest AT [facility] Tari Gonzalez Unspec 786.05 Shortness Of Breath 414.01 Coronary Atherosclerosis [place] 401.1 Hypertension Benign V45.82 Percutaneous Transluminal Coronary Angioplas Postsurg Status 272.4 Hyperlipidemia Other Unspec Office 08/24/2011 [place] S. 794.31 Electrocardiogram Visit 9:30a Elias Gonzalez M.D. (ECG) (EKG) Abnormal 786.50 Pain Chest Unspec 786.05 Shortness Of Breath 414.01 Coronary Atherosclerosis [place] 401.1 Hypertension Benign V45.82 Percutaneous Transluminal Coronary Angioplas Postsurg Status Office Visit 08/16/2011 [place] Zeynep 414.01 Coronary 11:30a Cardiology Devan, N.P. Atherosclerosis [place] 401.1 Hypertension Benign Office Visit 08/09/2011 [place] Zeynep 414.01 Coronary 3:00p Cardiology Devan, N.PGerald Atherosclerosis [place] 401.1 Hypertension Benign 272.4 Hyperlipidemia Other Unspec Office Visit 10/07/2010 [place] S. 414.01 Coronary 10:40a Elias Gonzalez M.D. Atherosclerosis [place] 401.1 Hypertension Benign V45.82 Percutaneous Transluminal Coronary Angioplas Postsurg Status 272.4 Hyperlipidemia Other Unspec Office Visit 01/06/2010 [place] S. 414.01 Coronary 3:20p Elias Gonzalez M.D. Atherosclerosis [place] 786.05 Shortness Of Breath 401.1 Hypertension Benign Office Visit 12/30/2009 [place] S. 414.01 Coronary 8:30a Elias Gonzalez M.D. Atherosclerosis [place] V45.82 Percutaneous Transluminal Coronary Angioplas Postsurg Status 401.1 Hypertension Benign Office Visit 09/09/2009 [place] S. 414.01 Coronary 11:10a Elias Gonzalez M.D. Atherosclerosis [place] V45.82 Percutaneous Transluminal Coronary Angioplas Postsurg Status 401.1 Hypertension Benign 272.4 Hyperlipidemia Other Unspec Office Visit 08/27/2008 [place] S. 414.01 Coronary 1:20p Elias Gonzalez M.D. Atherosclerosis [place] V45.82 Percutaneous Transluminal Coronary Angioplas Postsurg Status 401.1 Hypertension Benign 272.4 Hyperlipidemia Other Unspec 786.50 Pain Chest Unspec Office Visit 01/09/2008 [place] S. 414.01 Coronary 8:40a Elias Gonzalez M.D. Atherosclerosis [place] V45.82 Percutaneous Transluminal Coronary Angioplas Postsurg Status 401.1 Hypertension Benign 786.05 Shortness Of Breath 272.4 Hyperlipidemia Other Unspec Office Visit 08/14/2007 [place] S. 414.01 Coronary 11:20a Elias Gonzalez M.D. Atherosclerosis [place] V45.82 Percutaneous Transluminal Coronary Angioplas Postsurg Status 401.1 Hypertension Benign 272.4 Hyperlipidemia Other Unspec 786.50 Pain Chest Unspec 786.05 Shortness Of Breath Office Visit 01/16/2007 [place] S. 414.01 Coronary 11:30a Elias Gonzalez M.D. Atherosclerosis [place] V45.82 Percutaneous Transluminal Coronary Angioplas Postsurg Status 401.1 Hypertension Benign 794.31 Electrocardiogram (ECG) (EKG) Abnormal 786.50 Pain Chest Unspec 272.4 Hyperlipidemia Other Unspec Office Visit 08/28/2006 [place] Shayna S. 414.01 Coronary 2:20p Elias Gonzalez M.D. Atherosclerosis [place] 401.1 Hypertension Benign 272.4 Hyperlipidemia Other Unspec V45.82 Percutaneous Transluminal Coronary Angioplas Postsurg Status Office Visit 02/28/2006 [place] Qual[place]andra[place] S. 414.01 Coronary 9:20a Cardiology Tari Gonzalez Atherosclerosis [place] V45.82 Percutaneous Transluminal Coronary Angioplas Postsurg Status 272.4 Hyperlipidemia Other Unspec Office Visit 02/19/2006 10:40a [facility] Shayna S. 786.50 Pain Chest Tari Gonzalez Unspec 414.01 Coronary Atherosclerosis [place] 401.0 Hypertension Malignant 272.4 Hyperlipidemia Other Unspec Office Visit 01/25/2006 [place] Quaudie S. 414.01 Coronary 2:00p Elias Gonzalez M.D. Atherosclerosis [place] V45.82 Percutaneous Transluminal Coronary Angioplas Postsurg Status Office Visit 01/04/2006 [place] Shayna S. 414.01 Coronary 3:00p Elias Gonzalez M.D. Atherosclerosis [place] 401.1 Hypertension Benign Office Visit 11/29/2005 2:40p [facility] Shayna S. 786.05 Valeriy Of Tari Gonzalez Breath 427.69 Premature Beats Other 401.1 Hypertension Benign 794.30 Cardiovascular Function Study Unspec Abnormal Office 10/18/2005 [place] Shayna S. 794.31 Electrocardiogram Visit 2:40p Elias Gonzalez M.D. (ECG) (EKG) Abnormal 786.05 Shortness Of Breath 272.4 Hyperlipidemia Other Unspec 401.0 Hypertension Malignant Plan of Treatment Future Appointment(s):10/08/2018 10:30 am - Nurse Visit cc at [facility]10/07/2018 12:00 pm - Nurse Visit cc at [facility]10/03/2018 2 :30 pm - [place] ECHO Schedule at [facility]09/16/2018 - Shayna Gonzalez M.D.I48.2 Chronic atrial fibrillationNew Orders:24 hour holter monitor, Ordered: 09/16/18Follow up:10 months ovI25.10 Atherosclerotic heart disease of [place] coronary artery withI10 Essential (primary) [id number] Aortic aneurysm of unspecified site, without butftosB89.0 Nonrheumatic mitral ( valve) [id number] Shortness of breathNew Orders:Echocardiogram, Scheduled: 10/03/18
--- OUTSIDE RECORDS SUMMARY | 2018-09-16 15:35 | XMS REPORT | Continuity of Care Document ---
:1930 External Reference #:[id number] Author Name Elia Gusman Care Team Providers Name Role Phone Corky Finn MD Primary Care Physician Unavailable Payers Date Identification Numbers Payment Provider Subscriber Policy Number: [id number] [employer] Lynette Hess PayID: [id number] [id number] [place] [address] Problems Active Problems Provider Date Coronary arteriosclerosis Zeynep Hartman, N.Rosalba Onset: 08/09/2011 Benign essential hypertension Zeynep Hartman NShaniqua Onset: 08/09/2011 Hyperlipidemia Zeynep Hartman NShaniqua Onset: 08/09/2011 Chest pain Shayna Gonzalez M.D. Onset: 08/30/2011 Dyspnea Shayna Gonzalez M.D. Onset: 08/30/2011 Patient post percutaneous transluminal Shayna Gonzalez M.D. Onset: coronary angioplasty Electrocardiogram abnormal Shayna Gonzalez M.D. Onset: 09/11/2012 Premature beats Shayna Gonzaelz M.D. Onset: 09/11/2012 Spinal stenosis of lumbar region Vaughn Motta M.D. Onset: 09/01/2016 Essential hypertension Shayna Gonzalez M.D. Onset: 09/28/2015 Chronic atrial fibrillation Shayna Gonzalez M.D. Onset: 09/28/2015 Atrial fibrillation Brad Emerson.D. Onset: 12/22/2013 Family History Date Family Member(s) Observation Comments : (age 79 Years) Mother due to [place] Social History Type Date Description Comments Sex Unknown Marital Status Lives With Alone Occupation Retired ETOH Use Never used alcohol Tobacco Use Start: Unknown Patient has never smoked Recreational Drug Use Never Used Drugs Smoking Status Reviewed: 09/22/16 Patient has never smoked Exercise Type/Frequency Exercises sporadically Allergies, Adverse Reactions, Alerts Active Allergies Reaction Severity Comments Date Codeine itching 10/18/2005 Darvocet itching 08/09/2011 Tape red , itch at site tape worn for long period of 01/09/2014 time per patient Medications Active Medications SIG Qnty Indications Ordering Provider Date Eliquis 1 by mouth twice 60tabs Qutaybneville S. 02/07/2017 5mg Tablets a day Tari Gonzalez Aspirin Low Dose take 1 tab po R06.02 Qutaybneville S. 01/09/2014 81mg daily Tari Gonzalez Tablets Nitroquick 1 S/l prn chest 25tabs Troyybneville S. 01/04/2006 0.4mg pain, q 5 min. Tari Gonzalez Tablets up to 3 tabs Valium 1 po prn Troyybneville S. 10/17/2005 5mg Tablets Tari Gonzalez Benadryl Allergy as needed Unknown 25mg Tablets Hydrocodone-Acetamino 1 tabs by mouth Unknown phen every 4- 6 hours 5-325mg Tablets as needed pain Biotin 2 tabs daily Unknown 5000mcg Tablets Simvastatin 1 by mouth every 90tabs Qutaybeh S. 20mg day Tari Gonzalez Tablets Fiber Formula 2 cap po daily Unknown Capsules Fish Oil 1 po bid Unknown 1200mg Oil Toprol XL 1/2 tablet by 90tabs Stormytaybeh S. 25mg Tablets mouth twice a Tari Gonzalez ER 24HR day History Medications Meloxicam 1 by mouth 30tabs M48.06 Vaughn Motta, 09/01/2016 - 15mg every day Tari 10/04/2017 Tablets Simvastatin 1 by mouth 90tabs Qutaybeh S. 11/17/2015 - [facility]ts Simvastatin 1 by mouth Qutaybeh S. 09/30/2015 [facility] Tablets bedtime Xarelto 1 by mouth 30tabs Qutaybeh S. 09/30/2014 - 15mg Tablets every day Tari Gonzalez 02/06/2017 Lovenox sc twice a day 10syringe Qutayb S. 09/25/2014 - 60mg/0.6ML Tari Gonzalez 09/27/2015 Solution Digoxin 1 by mouth 90tabs Qutaybeh S. 01/02/2014 - 125mcg every day Tari Gonzalez 09/28/2015 Tablets Xarelto 1 by mouth 30tabs Qutaybeh S. 01/02/2014 - 20mg Tablets [facility] 09/30/2014 Lasix 1 po qd 30tabs Qutaybeh S. 08/30/2011 - 20mg Tablets Tari Gonzalez 09/11/2012 Imdur 1 po qd 30tabs Esther 08/09/2011 - 30mg Tablets ER Christian Billings 08/16/2011 24HR Vytorin 1 po qd 90tabs Stormytaybeh S. 01/16/2007 - 10-80mg Tari Gonzalez 08/19/2010 Tablets Imdur 1 po qd 90tabs Qutaybeh S. 01/16/2007 - 30mg Tablets ER Tari Gonzalez 04/15/2007 24HR Prevacid 1 po qd Qutaybeh S. 08/28/2006 - 30mg Tari Gonzalez 09/09/[address] Chisholm 1 po qd 90tabs Qutaybeh S. 08/28/2006 - 25mg Tablets Tari Gonzalez 04/15/2007 Vytorin 1 po qd 90tabs Qutaybeh S. 01/25/2006 - 10mg;40 mg Brad Gonzalez.DGerald 01/16/2007 Tablets Aspirin 1 PO qd Qutaybeh S. 01/04/2006 - 325mg Tablets Brad Gonzalez.DGerald 01/09/2014 Plavix 1 po qd 90tabs Qutaybeh S. 01/04/2006 - 75mg Tablets Brad Gonzalez.DGerald 01/02/2014 Lisinopril 1 PO qd 90tabs Qutaybeh S. 01/04/2006 - 2.5mg Brad Gonzalez.DGerald 08/28/2006 Tablets Toprol XL 1 PO qd 30tabs Qutaybeh S. 11/29/2005 - 25mg Brad Gonzalez.DGerald 08/28/2006 Tablets Vytorin 1 po qd 30tabs Qutaybeh S. 11/29/2005 - 10mg;20 mg Brad Gonzalez.DGerald 01/25/2006 Tablets Aciphex 1 PO qd 30tabs Qutaybeh S. 10/17/2005 - 20mg Tablets Chelsey GonzalezDGerald 08/28/2006 Advil prn Stormytayb S. 10/17/2005 - 200mg Tablets Brad Gonzalez.DGerald 08/09/2011 Lipitor 1 po qd 30tabs Qutaybeh S. 10/17/2005 - 10mg Tablets Chelsey GonzalezDGerald 11/29/2005 Quinidine Sulfate prn Qutaybeh S. 10/17/2005 - Chelsey GonzalezDGerald 08/27/2008 260mg Tablets Prevacid OTC 1 po qd Unknown - 15mg 08/09/2011 Capsules Simvastatin 1 by mouth 90tabs Qutaybeh S. - [facility]/17[facility]2015 Tablets bedtime Prilosec 1 po qd 30caps Unknown - 20mg 10/22/2012 Capsules Lansoprazole 1 by mouth 30caps Unknown - 15mg every day Am 08/31/2014 Capsules Vital Signs Date Vital Result Comment 10/05/2017 2:06pm Height 62 inches 5'2" Weight [...] Result H/L Range Note Basic Metabolic 11/12/2015 [facility] Sodium 141 mmol/L N 133- [address] [place] [address] [phone] Potassium 3.6 mmol/L N 3.5-5.0 Chloride 105 mmol/L N 101-111 Co2 Carbon Dioxide 30 mmol/L N 22-32 Anion Gap 6 mmol/L N 2-11 Glucose 104 mg/dL High 70-100 Blood Urea Nitrogen 19 mg/dL N 6-24 Creatinine 1.02 mg/dL High 0.51-0.95 BUN/Creatinine Ratio 18.6 N 8-20 Calcium 9.3 mg/dL N 8.6-10.3 Egfr Non- 51.5 N >60 Egfr 66.2 N >60 1 Laboratory test 10/08/2014 [facility] Digoxin 1.5 ng/ml N 0.8- 2.[address] [place] [address] [phone] CBC No Diff 10/17/2012 [facility] White Blood 8.0 10^3/uL 4.8 -10.[address] [place] [address] [phone] Red Blood Count 4.95 10^6/uL 4.0-5.4 Hemoglobin 14.9 g/dL 12.0-16.0 Hematocrit 46 % 35-47 Mean Corpuscular Volume 92 fL 80-97 Mean Corpuscular Hemoglobin 30 pg 27-31 Mean Corpuscular HGB Conc 33 g/dL 31-36 Red Cell Distribution Width 13 % 10.5-15 Platelet Count 223 10^3/uL 150-450 Mean Platelet Volume 8 um3 7.4-10.4 Basic Metabolic Panel 10/17/2012 [facility] Sodium 141 mmol/L 133-145 [address] [place] [address] [phone] Potassium 3.6 mmol/L 3.5-5.0 Chloride 109 mmol/L 101-111 Co2 Carbon Dioxide 25.0 mmol/L 22-32 Anion Gap 7.0 mmol/L 2-11 Glucose 131 mg/dL High 70-100 Blood Urea Nitrogen 22 mg/dL 6-24 Creatinine 0.90 mg/dL 0.50-1.40 BUN/Creatinine Ratio 24.4 High 8-20 Calcium 9.6 mg/dL 8.1-9.9 Egfr Non- 59.9 >60 Egfr 77.1 >60 2 Laboratory test 10/17/2012 [facility] TSH (Thyroid 3.34 0.34- 5.60 finding [address] [facility] Stimulating miu/[place] [address] Horm) [phone] Cath Panel 09/06/2011 [facility] PTT (Aptt) 26.1 SEC 25.1- 38.[address] [place] [address] [phone] CBC With Manual 09/06/2011 [facility] White Blood 6.7 CUMM 4.8-10.[address] [place] [address] [phone] Red Cell Count 4.27 CUMM 4.2-5.4 Hemoglobin [...] RBC Morphology NORMAL Basic Metabolic Panel 09/06/2011 [facility] Sodium 141 mmol/L 135-[address] [place] [address] [phone] Potassium 4.0 mmol/L 3.5-5.0 Chloride 107 mmol/L 101-111 Co2 (Carbon Dioxide) 27.0 mmol/L 22-32 Anion Gap 7.0 mmol/L 2-11 3 Glucose 110 mg/dL High 70-100 BUN 26 mg/dL High 6-24 Creatinine 1.2 mg/dL 0.50-1.40 One Over Creatinine 0.83 BUN/Creatinine Ratio 21.7 High 8-20 Calcium 8.9 mg/dL 8.1-9.9 eGFR Non- 43.1 > 60 eGFR 55.4 > 60 4 Protime 09/06/2011 [facility] Inr 0.87 Low 0.88-1.[address] [place] [address] [phone] Protime 10.3 SEC 10.3-13.5 6 Lipid Profile 10/06/2010 [facility] Triglyceride 130 mg/dL 40 -200 (Trig/Chol/HDL) [address] [place], [place] [id number] [phone] Cholesterol 147 mg/dL Less Than 200 7 High Density Lipoprotein 42 mg/dL 40-60 8 Low Density Lipoprotein 79 mg/dL Less Than 100 9 Cholesterol/HDL Ratio 3.50 AVERAGE 1-4.44 Laboratory test finding 10/06/2010 [facility] Alt (SGPT) 23 U/L 14-54 [address] [place], [place] [id number] [phone] Ast (Sgot) 23 U/L 12-42 CPK (Creatine Kinase) 89 U/L 0-170 Lipid Profile 08/18/2010 [facility] Triglyceride 136 mg/dL 40 -200 (Trig/Chol/HDL) [address] [place], [place] [id number] [phone] Cholesterol 130 mg/dL Less Than 200 10 High Density Lipoprotein 35 mg/dL Low 40-60 11 Cholesterol/HDL Ratio 3.71 AVERAGE 1-4.44 Low Density Lipoprotein 68 mg/dL Less Than 100 12 Laboratory test finding 08/18/2010 [facility] Ast (Sgot) 28 U/L 12-42 [place] [address] [phone] Alt (SGPT) 27 U/L 14-54 CPK (Creatine Kinase) 149 U/L 0-170 Cath Panel 12/30/2009 [facility] PTT (Aptt) 28.5 25.15-38.[address] [place] [address] [id number] [phone] Protime 12/30/2009 [facility] Inr 0.98 0.82-1.[address] [place] [address] [phone] Protime 11.5 SEC 10.2-14.8 14 CBC With Manual 12/30/2009 [facility] White Blood 6.7 CUMM 4.8-10.8 Diff [address] [facility] [place] [address] [phone] Red Cell Count 4.19 CUMM Low 4.2-5.4 [...] SLIGHT Ovalocytes FEW Basic Metabolic Panel 12/30/2009 [facility] Sodium 144 mmol/L 135-[address] [place] [address] [phone] Potassium 3.9 mmol/L 3.5-5.0 Chloride 108 mmol/L 101-111 Co2 (Carbon Dioxide) 28.0 mmol/L 22-32 Anion Gap 8.0 mmol/L 2-11 15 Glucose 124 mg/dL High 70-100 16 BUN 14 mg/dL 6-24 Creatinine 1.00 mg/dL 0.50-1.40 One Over Creatinine 1.00 BUN/Creatinine Ratio 14.0 8-20 Calcium 8.9 mg/dL 8.1-9.9 eGFR Non- 56.8 > 60 eGFR 68.8 > 60 17 Laboratory test 12/16/2009 [facility] Erythrocyte Sed 5 MM/HR 0-[address] [place] [address] [phone] Syphilis IgG NON-REACTIVE Nonreactive 18 [place] 12/16/2009 [facility] Antinuclear POSITIVE Abnormal Negative (Antinuclear [address] AB Antibodies) [place] [address] [phone] [place] Pattern NUCLEOLAR Abnormal Antinuclear AB 1:80 Abnormal Reviewed By (SEE NOTE) 19 Ssa/SSB 12/16/2009 [facility] Ssa NEGATIVE [place] [address] [phone] SSB NEGATIVE Negative Laboratory test 12/16/2009 [facility] Fta-Abs Igg In Non Reactive () [address] [place] [address] [phone] Complement C3 154 mg/dL 75-175 21 Complement C4 27 mg/dL 14-40 22 Lyme Disease Serology Negative Negative 23 CBC With 12/16/2009 [facility] White Blood 8.4 CUMM 4.8-10.8 Electronic Diff [address] [place] [address] [phone] Red Cell Count 4.15 CUMM Low 4.2-5.4 [...] Abs Basophils 0.1 0-0.2 Laboratory test 12/16/2009 [facility] Thyroxine Free 0.60 NG/ML Low 0.61-1.[address] [place] [address] [phone] T3 Total 0.97 NG/ML 0.5-1.7 TSH 2.84 MIU/ML 0.34-5.60 Rheumatoid Factor < 20.0 IU/mL Less Than 20 Basic Metabolic Panel 12/16/2009 [facility] Sodium 143 mmol/L 135-[address] [place] [address] [phone] Potassium 4.4 mmol/L 3.5-5.0 Chloride 109 mmol/L 101-111 Co2 (Carbon Dioxide) 28.0 mmol/L 22-32 Anion Gap 6.0 mmol/L 2-11 24 Glucose 91 mg/dL 70-100 25 BUN 15 mg/dL 6-24 Creatinine 1.10 mg/dL 0.50-1.40 One Over Creatinine 0.90 BUN/Creatinine Ratio 13.6 8-20 Calcium 9.2 mg/dL 8.1-9.9 eGFR Non- 50.9 > 60 eGFR 61.6 > 60 26 Liver Function 12/16/2009 [facility] Total Protein 6.4 GM/DL 6.2-8.[address] [place] [address] [phone] Albumin 3.8 GM/DL 3.2-5.2 Globulin 2.6 GM/DL 2-4 Albumin/Globulin Ratio 1.5 1-3 Bilirubin Total 1.0 mg/dL 0.4-1.5 27 Bilirubin Direct 0.1 mg/dL 0.1-0.5 Indirect Bilirubin 0.9 mg/dL 0.3-1.0 28 Alkaline Phosphatase 74 U/L 30-110 Alt (SGPT) 22 U/L 14-54 Ast (Sgot) 23 U/L 12-42 1 Because ethnic data is not always [...] Risk: LDL Greater than 189 MG/DL 13 Recommended INR for Patients on Oral Anticoagulants Prophylaxis 2.0 - 3.0 Treatment of thrombosis 2.0 - 3.0 Prevention of embolism 2.0 - 3.0 Prevention of embolism from prosthetic heart valves 2.5 - 3.5 14 DIAGNOSIS,TREATMENT,AND THERAPY MUST BE BASED ON THE INR VALUE ALONE. 15 Anion gap measurement may be of limited value in the presence of any alkalosis, especially in a combined acid base disorder. . 16 Note change in reference range as of 11/28/07. The change was based on recommendations from the [place] [employer]. 17 Because ethnic data is not always readily [...] 15-29 5 Kidney failure <15 (or dialysis) 18 Warning: A positive result is not useful for establishing a diagnosis of syphilis. In most situations, such a result may reflect a prior treated infection; a negative result can exclude a diagnosis of syphilis except for incubating or early primary disease. 19 REVIEWED BY AILYN MAS MD 20 -- REFERENCE VALUE -- Non Reactive Test Performed By:[facility] [address] [place] [address] -- REFERENCE VALUE -- Non Reactive 21 Test Performed by: [facility] Dpt of Lab Med and Pathology [address] [place] [address] [employer] Supervisor: Quinton Guerra III, M.D. 22 Test Performed by: [facility] Dpt of Lab Med and Pathology [address] [place] [address] [employer] Supervisor: Quinton Guerra III, M.D. 23 Serologic response to B. burgdorferi infection is not detected, but cannot rule out early infection during which low or undetectable antibody levels to B. burgdorferi may be present. If clinically indicated, a new serum specimen should be submitted in 7-14 days. Test Performed by: [facility] Dpt of Lab Med and Pathology [address] [place] [address] [employer] Supervisor: Quinton Guerra III, M.D. 24 Anion gap measurement may be of limited value in the presence of any alkalosis, especially in a combined acid base disorder. . 25 Note change in reference range as of 11/28/07. The change was based on recommendations from the [place] [employer]. 26 Because ethnic data is not always readily [...] 15-29 5 Kidney failure <15 (or dialysis) 27 A metabolite of Naproxen, O-desmethylnaproxen, has been shown to interfere with the Jendrassik-Wilmot method for measuring total bilirubin. Samples from patients who have taken Naproxen have shown spurious elevation in total bilirubin levels. 28 Please note updated reference range, effective 10/28/09 Procedures Date Code Description Status 10/05/2017 12649 EKG Tracing & Interpretation Completed 10/23/2016 35064 ECHO Transthoracic, Real-Time 2D With Doppler And Color Completed Flow 09/22/2016 38267 EKG Tracing & Interpretation Completed 09/28/2015 26460 EKG Tracing & Interpretation Completed 09/01/2014 65181 EKG Tracing & Interpretation Completed 01/09/2014 57474 EKG Tracing & Interpretation Completed 12/30/2013 05116 Laparoscopy Cholecystectomy Completed 12/29/2013 30001 ECHO Transthorasic Realtime 2D W Doppler & Color Flow Hosp Completed 12/28/2013 41989 Treadmill Interp/Report Only Completed 12/28/2013 55737 Stress Test Supervsn W/Out I/R Completed 12/28/2013 68087 EKG, Interpretation Only Completed 12/24/2013 09185 Holter Monitor Review (24 hr)dr review & interp only Completed 12/22/2013 56947 EKG Tracing & Interpretation Completed 12/17/2012 93765 Holter Monitoring 24 HR New Completed 10/22/2012 70309 EKG Tracing & Interpretation Completed 10/17/2012 85252 Color Flow Doppler/Interp & Reprt Completed 10/17/2012 21303 Pulse Wave/Continuous-Interp.RPT Completed 10/17/2012 44675 Echocardiography, Transesophageal, Real Time W/Image 2D Completed W/W/O M-M 10/17/2012 19905 Treadmill Interp/Report Only Completed 10/17/2012 42844 Stress Test Supervsn W/Out I/R Completed 10/17/2012 43056 EKG, Interpretation Only Completed 10/17/2012 91781 Cardioversion Completed 10/03/2012 54826 ECHO Transthoracic, Real-Time 2D With Doppler And Color Completed Flow 10/02/2012 36652 Holter Monitoring 24 HR New Completed 09/11/2012 60204 EKG Tracing & Interpretation Completed 09/12/2011 27860 Left Health Catheterization W/Inj For Left Completed Ventriculography,S&I 09/12/2011 71016 Cath PLMT&NJX L Ventriculog Img S&I Completed 09/12/2011 28202 Left Heart Cath. Incl S/I Coronaries, Angio S/I V Gram If Completed Done 08/24/2011 93203 Treadmill Interp/Report Only Completed 08/24/2011 56997 Stress Test Supervsn W/Out I/R Completed 08/09/2011 68814 ECHO Transthoracic, Real-Time 2D With Doppler And Color Completed Flow 10/07/2010 10963 EKG Tracing & Interpretation Completed 12/31/2009 12491 Selective Coronary Angioplasty Completed 12/31/2009 70234 S/I/R Inj Proc Vent And Or Atrial Completed 12/31/2009 18863 Coronary Angiography Completed 12/31/2009 39003 Inj Proc LFT Vent/LFT Atrl Angio Completed 12/31/2009 09453 Left Heart Catheterization Completed 12/30/2009 50694 EKG Tracing & Interpretation Completed 12/30/2009 84894 ECHO Stress Test Incl Perf Contiuous ekg Monitoring W/Phys Completed Superv 12/28/2009 19501 ECHO Transthoracic, Real-Time 2D With Doppler And Color Completed Flow 09/09/2009 24418 EKG Tracing & Interpretation Completed 10/21/2008 90060 ECHO Transthoracic, Real-Time 2D With Doppler And Color Completed Flow 08/27/2008 70282 EKG Tracing & Interpretation Completed 12/24/2007 20376 Stress Test Completed 12/24/2007 20724 Stress Test Completed 12/24/2007 06038 Stress Test Completed 12/24/2007 11810 Echocardiogram Completed 12/24/2007 16201 Echocardiogram Completed 12/24/2007 30826 Echocardiogram Completed 12/24/2007 72002 Pulse Doppler & Continuous Wave Completed 12/24/2007 33991 Pulse Doppler & Continuous Wave Completed 12/24/2007 32923 Pulse Doppler & Continuous Wave Completed 12/24/2007 84514 Color Doppler Completed 12/24/2007 29135 Color Doppler Completed 12/24/2007 04032 Color Doppler Completed 12/24/2007 47123 ECHO/Stress Completed 12/24/2007 22206 ECHO/Stress Completed 08/14/2007 83149 EKG Tracing & Interpretation Completed 01/16/2007 61339 EKG Tracing & Interpretation Completed 01/16/2007 19433 Echocardiogram Completed 01/16/2007 34810 Echocardiogram Completed 01/16/2007 27291 Pulse Doppler & Continuous Wave Completed 01/16/2007 83679 Pulse Doppler & Continuous Wave Completed 01/16/2007 44417 Pulse Doppler & Continuous Wave Completed 01/16/2007 14723 Color Doppler Completed 01/16/2007 23986 Color Doppler Completed 01/10/2007 30517 ECHO/Stress Completed 01/10/2007 36777 Stress Test Completed 01/10/2007 98637 Stress Test Completed 08/28/2006 05652 EKG Tracing & Interpretation Completed 02/23/2006 19660 Left Heart Catheterization Completed 02/23/2006 23117 Coronary Angiography Completed 02/23/2006 89543 Coronary Angiography Completed 02/23/2006 98583 Selective Coronary Angioplasty Completed 02/19/2006 55068 EKG Tracing & Interpretation Completed 01/25/2006 67863 EKG Tracing & Interpretation Completed 12/29/2005 08370 EKG, Interpretation Only Completed 12/29/2005 39827 EKG, Interpretation Only Completed 12/29/2005 41546 Com RT And LT Catheterization Completed 12/29/2005 19402 Inj Proc LFT Vent/LFT Atrl Angio Completed 12/29/2005 08214 Inj Proc LFT Vent/LFT Atrl Angio Completed 12/29/2005 99296 Coronary Angiography Completed 12/29/2005 44193 S/I/R Inj Proc Vent And Or Atrial Completed 12/29/2005 86012 S/I/R Inj Proc Vent And Or Atrial Completed 12/29/2005 78607 Selective Coronary Angioplasty Completed 10/27/2005 05377 Stress ECHO Interpretation/Report Hospital Completed 10/27/2005 17898 Stress ECHO Interpretation/Report Hospital Completed 10/27/2005 02183 Treadmill Interp/Report Only Completed 10/27/2005 30031 Stress Test Supervsn W/Out I/R Completed 10/27/2005 40111 Stress Test Supervsn W/Out I/R Completed 10/25/2005 07525 Color Doppler Completed 10/25/2005 21063 Pulse Doppler & Continuous Wave Completed 10/25/2005 94207 Pulse Doppler & Continuous Wave Completed 10/25/2005 69854 Echocardiogram Completed 10/18/2005 03790 EKG Tracing & Interpretation Completed Encounters Type Date Location Provider Dx Diagnosis Office Visit 10/05/2017 [facility] Shayna S. I48.2 Chronic atrial 2:20p Tari Gonzalez fibrillation I25.10 [facility] coronary artery w/o ang pctrs I10 Essential (primary) hypertension I71.9 Aortic aneurysm of unspecified site, without rupture I34.0 Nonrheumatic mitral (valve) insufficiency Office Visit 09/22/2016 Artemio Corral S. I48.2 Chronic atrial 1:40p Elias Gonzalez M.D. fibrillation I25.10 [facility] coronary artery w/o ang pctrs I10 Essential (primary) hypertension R06.02 Shortness of breath Office Visit 09/01/2016 11:20a Neurosurgery Vaughn Kalia, M48.06 [facility] Tari stenosis, lumbar region M51.36 Other intervertebral disc degeneration, lumbar region Office Visit 09/28/2015 [facility] Corral S. I48.2 Chronic atrial 11:20a Cardiology Tari Gonzalez fibrillation I25.10 [facility] coronary artery w/o ang pctrs I10 Essential (primary) hypertension I25.9 Chronic ischemic heart disease, unspecified Office Visit 09/01/2014 [facility] Qutaybeh S. 427.31 Atrial 10:40a Cardiology Tari Gonzalez Fibrillation 414.01 Coronary Atherosclerosis Robinson 401.1 Hypertension Benign Office Visit 01/09/2014 9:30a [facility] Rachel Quinteros, 427.31 Atrial [facility] [place] Fibrillation 786.05 Shortness Of Breath 414.01 Coronary Atherosclerosis Robinson 401.1 Hypertension Benign Office Visit 01/02/2014 [facility] Melissa 575.10 Cholecystitis 9:23p Assoclevi D.O. [facility] 427.31 Atrial Fibrillation 401.9 Hypertension Unspec 414.9 Ischemic Heart Disease Chronic Unspec Office Visit 01/01/2014 [facility] Melissa 575.10 Cholecystitis 9:23p levi Moon D.O. [facility] Hospitalists 427.31 Atrial Fibrillation 401.9 Hypertension Unspec 414.9 Ischemic Heart Disease Chronic Unspec Office Visit 12/31/2013 [facility] Melissa 575.10 Cholecystitis 9:22p Asslevi hills D.O. [facility] Hospitalists 427.31 Atrial Fibrillation 401.9 Hypertension Unspec 414.9 Ischemic Heart Disease Chronic Unspec Office Visit 12/30/2013 [facility] Gregorio 575.10 Cholecystitis 12:05p levi Moon M.D. [facility] Hospital[facility] 427.31 Atrial Fibrillation 414.9 Ischemic Heart Disease Chronic Unspec 401.9 Hypertension Unspec Office Visit 12/29/2013 [facility] Lorena 575.10 Cholecystitis 9:22p Asslevi hills M.D. [facility] Hospital[facility] 427.31 Atrial Fibrillation 401.9 Hypertension Unspec 414.9 Ischemic Heart Disease Chronic Unspec Office Visit 12/29/2013 12:44p Gregoria Weber 427.31 Atrial Cardiology Anthony Slaughter M.D. Fibrillation Composition Molder Office Visit 12/28/2013 10:09a Artemio Galvan 427.31 Atrial Cardiology Tari Mccabe Fibrillation 414.8 Ischemic Heart Disease Chronic Other Spec Forms Office Visit 12/28/2013 [facility] 575.10 Cholecystitis 9:21p levi Moon M.D. [facility] Hospitalists 427.31 Atrial Fibrillation 401.9 Hypertension Unspec 414.9 Ischemic Heart Disease Chronic Unspec Office Visit 12/27/2013 [facility] 575.10 Cholecystitis 9:18p levi Moon M.D. [facility] Hospitalists 427.31 Atrial Fibrillation 401.9 Hypertension Unspec 414.9 Ischemic Heart Disease Chronic Unspec Office Visit 12/27/2013 9:42a Artemio Galvan 427.31 Atrial Cardiology Tari Mccabe Fibrillation 414.9 Ischemic Heart Disease Chronic Unspec Office Visit 12/22/2013 [facility] Qualejandraeh S. 427.31 Atrial 2:40p Elias Gonzalez M.D. Fibrillation 794.31 Electrocardiogram (ECG) (EKG) Abnormal 786.05 Shortness Of Breath 414.01 Coronary Atherosclerosis Robinson 401.1 Hypertension Benign V45.82 Percutaneous Transluminal Coronary Angioplas Postsurg Status Office 10/22/2012 Artemio Qualejandraeh S. 794.31 Electrocardiogram Visit 10:00a Elias Gonzalez M.D. (ECG) (EKG) Abnormal 786.05 Shortness Of Breath 427.31 Atrial Fibrillation 427.69 Premature Beats Other 414.01 Coronary Atherosclerosis Robinson 401.1 Hypertension Benign V45.82 Percutaneous Transluminal Coronary Angioplas Postsurg Status Office Visit 10/17/2012 11:30a Artemio Corral S. 786.50 Pain Chest Tari Gonzalez Unspec 794.31 Electrocardiogram (ECG) (EKG) Abnormal 427.69 Premature Beats Other 786.05 Shortness Of Breath 414.01 Coronary Atherosclerosis Robinson 427.31 Atrial Fibrillation Office Visit 09/11/2012 Artemio Serranoeh S. 414.01 Coronary 2:20p Elias Gonzalez M.D. Atherosclerosis Robinson 401.1 Hypertension Benign V45.82 Percutaneous Transluminal Coronary Angioplas Postsurg Status 272.4 Hyperlipidemia Other Unspec 794.31 Electrocardiogram (ECG) (EKG) Abnormal 427.69 Premature Beats Other 786.05 Shortness Of Breath 786.50 Pain Chest Unspec Office Visit 09/20/2011 2:40p [facility] Qutaybeh S. 786.[address] [facility] Tari Gonzalez Unspec 414.01 Coronary Atherosclerosis Robinson 401.1 Hypertension Benign V45.82 Percutaneous Transluminal Coronary Angioplas Postsurg Status 272.4 Hyperlipidemia Other Unspec Office Visit 09/12/2011 11:30a [facility] Qutaybeh S. 786.50 Pain Chest Tari Gonzalez Unspec 414.01 Coronary Atherosclerosis Robinson 401.1 Hypertension Benign 786.05 Shortness Of Breath Office Visit 08/30/2011 3:20p [facility] Qutaybeh S. 786.[address] [facility] [place] Tari Gonzalez Unspec 786.05 Shortness Of Breath 414.01 Coronary Atherosclerosis Robinson 401.1 Hypertension Benign V45.82 Percutaneous Transluminal Coronary Angioplas Postsurg Status 272.4 Hyperlipidemia Other Unspec Office 08/24/2011 [facility] Qutaybeh S. 794.31 Electrocardiogram Visit 9:30a Elias Gonzalez M.D. (ECG) (EKG) Abnormal 786.50 Pain Chest Unspec 786.05 Shortness Of Breath 414.01 Coronary Atherosclerosis Robinson 401.1 Hypertension Benign V45.82 Percutaneous Transluminal Coronary Angioplas Postsurg Status Office Visit 08/16/2011 [facility] Zeynep 414.01 Coronary 11:30a Cardiology Jaydenmenter, N.P. Atherosclerosis Robinson 401.1 Hypertension Benign Office Visit 08/09/2011 [facility] Zeynep 414.01 Coronary 3:00p Cardiology Parmenter, N.P. Atherosclerosis Robinson 401.1 Hypertension Benign 272.4 Hyperlipidemia Other Unspec Office Visit 10/07/2010 Artemio Quaudie S. 414.01 Coronary 10:40a Elias Gonzalez M.D. Atherosclerosis Robinson 401.1 Hypertension Benign V45.82 Percutaneous Transluminal Coronary Angioplas Postsurg Status 272.4 Hyperlipidemia Other Unspec Office Visit 01/06/2010 Artemio Corral S. 414.01 Coronary 3:20p Elias Gonzalez M.D. Atherosclerosis Robinson 786.05 Shortness Of Breath 401.1 Hypertension Benign Office Visit 12/30/2009 [facility] Qutaybeh S. 414.01 Coronary 8:30a Elias Gonzalez M.D. Atherosclerosis Robinson V45.82 Percutaneous Transluminal Coronary Angioplas Postsurg Status 401.1 Hypertension Benign Office Visit 09/09/2009 [facility] Qutaybeh S. 414.01 Coronary 11:10a Elias Gonzalez M.D. Atherosclerosis Robinson V45.82 Percutaneous Transluminal Coronary Angioplas Postsurg Status 401.1 Hypertension Benign 272.4 Hyperlipidemia Other Unspec Office Visit 08/27/2008 [facility] Qutaybeh S. 414.01 Coronary 1:20p Elias Gonzalez M.D. Atherosclerosis Robinson V45.82 Percutaneous Transluminal Coronary Angioplas Postsurg Status 401.1 Hypertension Benign 272.4 Hyperlipidemia Other Unspec 786.50 Pain Chest Unspec Office Visit 01/09/2008 [facility] Qutaybeh S. 414.01 Coronary 8:40a Elias Gonzalez M.D. Atherosclerosis Robinson V45.82 Percutaneous Transluminal Coronary Angioplas Postsurg Status 401.1 Hypertension Benign 786.05 Shortness Of Breath 272.4 Hyperlipidemia Other Unspec Office Visit 08/14/2007 [facility] Qutaybeh S. 414.01 Coronary 11:20a Elias Gonzalez M.D. Atherosclerosis Robinson V45.82 Percutaneous Transluminal Coronary Angioplas Postsurg Status 401.1 Hypertension Benign 272.4 Hyperlipidemia Other Unspec 786.50 Pain Chest Unspec 786.05 Shortness Of Breath Office Visit 01/16/2007 [facility] Qutaybeh S. 414.01 Coronary 11:30a Elias Gonzalez M.D. Atherosclerosis Robinson V45.82 Percutaneous Transluminal Coronary Angioplas Postsurg Status 401.1 Hypertension Benign 794.31 Electrocardiogram (ECG) (EKG) Abnormal 786.50 Pain Chest Unspec 272.4 Hyperlipidemia Other Unspec Office Visit 08/28/2006 [facility] Qutaybeh S. 414.01 Coronary 2:20p Elias Gonzalez M.D. Atherosclerosis Robinson 401.1 Hypertension Benign 272.4 Hyperlipidemia Other Unspec V45.82 Percutaneous Transluminal Coronary Angioplas Postsurg Status Office Visit 02/28/2006 [facility] Qutaybeh S. 414.01 Coronary 9:20a Cardiology Maghaydah, M.D. Atherosclerosis Robinson V45.82 Percutaneous Transluminal Coronary Angioplas Postsurg Status 272.4 Hyperlipidemia Other Unspec Office Visit 02/19/2006 10:40a [facility] Shayna SGerald 786.50 Pain Chest Tari Gonzalez Unspec 414.01 Coronary Atherosclerosis Robinson 401.0 Hypertension Malignant 272.4 Hyperlipidemia Other Unspec Office Visit 01/25/2006 [facility] Shayna S. 414.01 Coronary 2:00p Cardiology Tari Gonzalez Atherosclerosis Robinson V45.82 Percutaneous Transluminal Coronary Angioplas Postsurg Status Office Visit 01/04/2006 [facility] Shayna S. 414.01 Coronary 3:00p Cardiology Tari Gonzalez Atherosclerosis Robinson 401.1 Hypertension Benign Office Visit 11/29/2005 2:40p [facility] Shayna SGerald 786.05 Shortness Of Tari Gonzalez Breath 427.69 Premature Beats Other 401.1 Hypertension Benign 794.30 Cardiovascular Function Study Unspec Abnormal Office 10/18/2005 [facility] Shayna SGerald 794.31 Electrocardiogram Visit 2:40p Elias Gonzalez M.D. (ECG) (EKG) Abnormal 786.05 Shortness Of Breath 272.4 Hyperlipidemia Other Unspec 401.0 Hypertension Malignant Plan of Treatment Future Appointment(s):09/16/2018 1:40 pm - Shayna Gonzalez M.D. at [facility]10/05/2017 - Shayna Gonzalez M.D.I48.2 Chronic atrial vpftwseamedgN86.10 Atherosclerotic heart disease of enterprise coronary artery without angina pectorisFollow up:one yr ovI10 Essential (primary) [id number] Aortic aneurysm of unspecified site, without wkydgriI96.0 Nonrheumatic mitral (valve) insufficiency
[2018-09-16 17:20] LABS: ABS Basophils 0.1 10^3/ul (0-0.2); ABS Eosinophils 0.1 10^3/ul (0-0.6); ABS Lymphocytes 3.5 10^3/ul (1.0-4.8); ABS Neutrophils 5.5 10^3/ul (1.5-7.7); Eosinophil % 0.5 %; Hematocrit 40 % (35-47); Hemoglobin 13.4 g/dL (12.0-16.0); Lymphocyte % 34.8 %; Mean Corpuscular HGB Conc 34 g/dL (31-36); Mean Corpuscular Hemoglobin 31 pg (27-31); Mean Corpuscular Volume 93 fL (80-97); Mean Platelet Volume 6.9 fL (7.4-10.4); Platelet Count 334 10^3/uL (150-450); Red Blood Count 4.29 10^6 /uL (3.70-4.87); Red Cell Distribution Width 13 % (10-15); White Blood Count 10.1 10^3/uL (3.5-10.8)
[2018-09-16 17:38] LABS: Albumin 3.6 g/dL (3.2-5.2); C Reactive Protein 139.58 mg/L (<8.01); Calcium 9.4 mg/dL (8.6-10.3); EGFR Non-African American 56.2 (>60); Globulin 3.5 g/dL (2-4); Potassium 3.7 mmol/L (3.5-5.0); Total Bilirubin 1.2 mg/dL (0.2-1.0); Total Protein 7.1 g/dL (6.4-8.9)
[2018-09-16 17:43] LABS: CKMB ng/mL 0.7 ng/mL (0.6-6.3)
--- NOTE | 2018-09-16 17:43 | ED ---
Respiratory - HPI Summary HPI Summary: This pt is an 88 y/o [facility]o continued SOB and cough. Pt states she was in the ED 1 week ago for the same but was on Doxycycline then for pneumonia. Pt has already finished Doxycycline. She notes that since then her cough has been better but her SOB has been worsening. Additionally reports she has had fever three times of 101 F for which she has taken Tylenol with relief. Pt saw her store director today, Dr. Gonzalez, and was referred to the ED for crackles in her lungs. She states feeling very weak and wiped out. Denies chest pain, swelling in LE. Denies hx of asthma or COPD. - History of Current Complaint Chief Complaint: EDShortnessOfBreath Stated Complaint: SOB, PNEUMONIA, SENT BY DR PER PT Time Seen by Provider: 09/16/18 17:01 Hx Obtained From: Patient Onset/Duration: Lasting Days, Still Present Timing: Constant Current Severity: Moderate Character: Dyspnea at Rest Aggravating Factor(s): Nothing Alleviating Factor(s): Nothing Associated Signs and Symptoms: Fever, SOB - Allergy/Home Medications Allergies/Adverse Reactions: Allergies Allergy/AdvReac Type Severity Reaction Status Date / Time No Known Drug Allergies Allergy See Comment Verified 09/16/18 22:05 NARCOTICS AdvReac ITCHING Uncoded 09/16/18 22:04 WITH MOST PAIN MEDS PMH/Surg Hx/FS Hx/Imm Hx Endocrine/Hematology History: Reports: Hx Thyroid Disease - HYPO, Hx Anemia Denies: Hx Diabetes Cardiovascular History: Reports: Hx Coronary Artery Disease - ONE CORONARY STENT SINCE 2005, Hx Hypercholesterolemia, Hx Hypertension, Other Cardiovascular Problems/Disorders - HX A FIB Denies: Hx Angina, Hx Myocardial Infarction, Hx Pacemaker/ICD, Hx Valvular Heart Disease Respiratory History: Denies: Hx Asthma, Hx Chronic Obstructive Pulmonary Disease (COPD), Other Respiratory Problems/Disorders GI History: Reports: Hx Gastroesophageal Reflux Disease Denies: Other GI Disorders History: Reports: Hx Kidney Stones - BILATERAL Denies: Hx Renal Disease - KIDNEY STONES, Other Problems/Disorders Musculoskeletal History: Reports: Hx Arthritis, Hx Back Problems Denies: Other Musculoskeletal History Sensory History: Reports: Hx Cataracts - EZEKIEL, Hx Contacts or Glasses - GLASSES, Hx Glaucoma Denies: Hx Hearing Aid Opthamlomology History: Reports: Hx Cataracts - EZEKIEL, Hx Contacts or Glasses - GLASSES, Hx Glaucoma Neurological History: Reports: Hx Migraine Denies: Other Neuro Impairments/Disorders Psychiatric History: Denies: Hx Panic Disorder - Cancer History Hx Chemotherapy: No - Surgical History Surgical History: Yes Surgery Procedure, Year, and Place: 12/2014, GALLBLADDER, [facility] HEART STENT 12/2005 [facility]. HYSTERECTOMY, [facility] BILATERAL BUNIONECTOMY-1981. TONSILECTOMY, AGE 30. APPENDECTOMY, AGE 12. RIGHT SHOULDER 1994, [facility] Hx Anesthesia Reactions: No Infectious Disease History: No Infectious Disease History: Denies: Traveled Outside the [place] in Last 30 Days - Family History Known Family History: Positive: Hypertension - Social History Alcohol Use: None Substance Use Type: Reports: None Hx Tobacco Use: No Smoking Status (MU): Never Smoked Tobacco Have You Smoked in the Last Year: No Review of Systems Positive: Fever Negative: Chest Pain Positive: Shortness Of Breath, Cough Negative: Edema Positive: Weakness - generalized All Other Systems Reviewed And Are Negative: Yes Physical Exam - Summary Physical Exam Summary: VITAL SIGNS: Reviewed. GENERAL: Patient is a well-developed and nourished female who is lying comfortable in the stretcher. Patient is not in any acute respiratory distress. HEAD AND FACE: Normocephalic EYES: PERRLA, EOMI x 2. EARS: Hearing grossly intact. MOUTH: Oropharynx within normal limits. NECK: Supple, trachea is midline, no adenopathy, no JVD, no carotid bruit. CHEST: Symmetric, no tenderness at palpation LUNGS: Crackles in both bases of the lungs. CVS: Regular rate and rhythm, S1 and S2 present, no murmurs or gallops appreciated. ABDOMEN: Soft, non-tender. Bowel sounds are normal. No abdominal abnormal pulsations. EXTREMITIES: Full ROM in all major joints, no edema, no cyanosis or clubbing. NEURO: Alert and oriented x 3. No acute neurological deficits. Speech is normal and follows commands. SKIN: Dry and warm Triage Information Reviewed: Yes Vital Signs On Initial Exam: Initial Vitals Temp Pulse Resp BP Pulse Ox 97.3 F 110 22 119/75 95 09/16/18 15:14 09/16/18 15:14 09/16/18 15:14 09/16/18 15:14 09/16/18 15:14 Vital Signs Reviewed: Yes Diagnostics - Vital Signs Vital Signs Temp Pulse Resp BP Pulse Ox 09/16/18 17:18 96 21 132/107 93 09/16/18 17:15 97 94 09/16/18 15:14 97.3 F 110 22 119/75 95 - Laboratory Lab Results: Lab Results 09/16/18 Range/Units 17:12 WBC 10.1 (3.5-10.8) 10^3/uL RBC 4.29 (3.70-4.87) 10^6 /uL Hgb 13.4 (12.0-16.0) g/dL Hct 40 (35-47) % MCV 93 (80-97) fL MCH 31 (27-31) pg MCHC 34 (31-36) g/dL RDW 13 (10-15) % Plt Count 334 (150-450) 10^3/uL MPV 6.9 L (7.4-10.4) fL Neut % (Auto) 54.2 % Lymph % (Auto) 34.8 % [place] % (Auto) 9.4 % Eos % (Auto) 0.5 % Baso % (Auto) 1.1 % Absolute Neuts (auto) 5.5 (1.5-7.7) 10^3/ul Absolute Lymphs (auto) 3.5 (1.0-4.8) 10^3/ul Absolute Monos (auto) 1.0 H (0-0.8) 10^3/ul Absolute Eos (auto) 0.1 (0-0.6) 10^3/ul Absolute Basos (auto) 0.1 (0-0.2) 10^3/ul Absolute Nucleated RBC 0.0 10^3/ul Nucleated RBC % 0.0 Result Diagrams: 09/17/18 05:32 09/17/18 05:32 Lab Statement: Any lab studies that have been ordered have been reviewed, and results considered in the medical decision making process. - Radiology Chest XR Radiology Interpretation Completed By: Radiologist Summary of Radiographic Findings: IMPRESSION: No evidence for active cardiopulmonary disease. Dr. Webb has reviewed this report. - CT Chest CT CT Interpretation Completed By: Radiologist Summary of CT Findings: IMPRESSION: 1. Trace left pleural effusion with atelectasis. No consolidation or pulmonary edema. 2. 2.1 cm indeterminate right renal mass, possibly cyst but not fully visualized here. Consider nonemergent ultrasound if this has not been previously worked up. 3. No other acute disease seen As above. Dr. Webb has reviewed this report. - EKG 15:22 Cardiac Rate: Tachycardia - at 105 bpm EKG Rhythm: Atrial Fibrillation Summary of EKG Findings: No ST elevations. Disposition - Course Assessment/Plan: This pt is an 88 y/o female [facility]/o continued SOB and cough. Pt states she was in the ED 1 week ago for the same but was on Doxycycline then for pneumonia. Pt has already finished Doxycycline. She notes that since then her cough has been better but her SOB has been worsening. Additionally reports she has had fever three times of 101 F for which she has taken Tylenol with relief. Pt saw her store director today, Dr. Gonzalez, and was referred to the ED for crackles in her lungs. She states feeling very weak and wiped out. Denies chest pain, swelling in LE. Blood work without any significant abnormality except for glucose of 112, total bili of 120, alkaline phosphatase is 110, CRP is 139.5, BNP is 194. Chest x-ray impression: No evidence for an active cardiopulmonary disease. In the ED course the patient is afebrile, normotensive, and the O2 sat ranges between 89-95%. In the ED course the patient was given DuoNebs and Solu-Medrol. I discussed my physical exam, findings and test results with Dr. Stewart from the hospitalist services and she agrees to admit patient to her services. Patient is hemodynamically stable, alert and oriented x 3. - Diagnoses Provider Diagnoses: Dyspnea, COPD (chronic obstructive pulmonary disease) - Physician Notifications Discussed Care Of Patient With: Sharon Stewart - hospitalist Time Discussed With Above Provider: 20:09 Instructed by Provider To: Admit As Inpatient Discharge - Sign-Out/Discharge Documenting (check all that apply): Patient Departure - Admit to [facility] Patient Received Moderate/Deep Sedation with Procedure: No - Discharge Plan Condition: Stable Disposition: ADMITTED TO [facility] - Billing Disposition and Condition Condition: STABLE Disposition: Admitted to [facility] - Attestation Statements Document Initiated by Scribe: Yes Documenting Scribe: Bruna Ordoñez Provider For Whom Scribe is Documenting (Include Credential): Bobby Webb MD Scribe Attestation: I, Bruna Ordoñez, scribed for Bobby Webb MD on 09/17/18 at 1029. Scribe Documentation Reviewed: Yes Provider Attestation: The documentation as recorded by the scribe, Bruna Ordoñez accurately reflects the service I personally performed and the decisions made by me, Bobby Webb MD Status of Scribe Document: Viewed
[2018-09-16] MEDS ORDERED: Iodixanol* (CONTRAST) 320 MG/ML 100 ML SDV IV ONE (18:21)
[2018-09-16] MEDS ORDERED: Albuterol/Ipratropium NEB.SOL* Albuterol 2.5 MG/Ipratropium 0.5 MG 3 ML INH ONE (19:01)
[2018-09-16] MEDS ORDERED: methylPREDNISolone 125 MG* 2 ML VIAL IV ONE (19:01)
[2018-09-16] MEDS ORDERED: cefTRIAXone(*) 1 GM in NS 0.9% 50 ML* 50 ML IVPB ONE (20:11)
[2018-09-16] MEDS ORDERED: Ondansetron INJ* 2 MG/ML VIAL IV PRN (21:07)
[2018-09-16] MEDS ORDERED: Diazepam TAB(*) 5 MG PO PRN (21:10)
[2018-09-16] MEDS ORDERED: Metoprolol Tartrate IV* 1 MG/ML 5 ML VIAL IV ONE (21:13)
[2018-09-16] MEDS ORDERED: Metoprolol Tartrate IV* 1 MG/ML 5 ML VIAL ONE (21:18)
[2018-09-16] MEDS ORDERED: Metoprolol Tartrate IV* 1 MG/ML 5 ML VIAL IV PRN (21:48)
[2018-09-16] MEDS: Benzonatate CAP* 100 MG PO PRN (22:37)
--- NOTE | 2018-09-16 23:22 | HP ---
CC: Dr. Corky Finn; Dr. Gonzalez * HISTORY AND PHYSICAL: DATE OF ADMISSION: 09/16/18 PRIMARY CARE PHYSICIAN: Dr. Corky Finn. BOAT BUILDER: Dr. Gonzalez. ATTENDING PHYSICIAN ON THIS ADMISSION: Dr. Sharon Stewart.* (DICTATED BY KEENAN PADILLA NP) CHIEF COMPLAINT: Cough and shortness of breath and hypoxia. HISTORY OF PRESENT ILLNESS: This is an 88-year-old female patient with a past medical history significant for coronary artery disease, GERD, hypertension, hypercholesterolemia, spinal stenosis, and chronic back pain, who presented to the emergency department 1 week ago initially for complaints of cough and some shortness of breath. She had a chest x-ray at that time that did not show any consolidation, but there was concern that she was perhaps having early signs of community acquired pneumonia. She was put on doxycycline and sent out for outpatient followup with her primary care provider. The patient finished her course of doxycycline, but then noted that she did have some subjective fevers at home, for which she was taking Tylenol. She reports that she still has had some progressive shortness of breath. She did go to see Dr. Gonzalez, her sales marketing today and then she was referred to the emergency department for further evaluation. Per the ER notes, it states that at her visit with her sales marketing, apparently there was some report of potential crackles in her lungs. She had some increased fatigue with this persistent shortness of breath and cough. In the emergency department, the patient did receive CAT scan of the chest and chest x-ray, neither of which showed any consolidation. She does not have a white count or fever. She does have an elevated CRP. She does have an unproductive cough, but she is persistently hypoxic and tachycardiac. She did receive 1 dose of steroid. She had a CAT scan of the chest and chest x-ray and then she was referred to hospitalist for evaluation for admission. PAST MEDICAL HISTORY: As stated above: 1. Coronary artery disease. 2. Atrial fibrillation. 3. Gastroesophageal reflux disease. 4. Hypothyroidism. 5. Hyperlipidemia. PAST SURGICAL HISTORY: 1. Bunionectomies. 2. Multiple spinal injections in the past. 3. Appendectomy as a child. 4. Cholecystectomy. 5. Cardiac stent in 2005. 6. Tonsillectomy. 7. Hysterectomy. MEDICATIONS: Per the record are: 1. Invega ER 3 mg p.o. b.i.d. 2. Melatonin 3 mg in the evening. 3. Levothyroxine 88 mcg daily. 4. Prilosec 20 mg daily. 5. Paliperidone 3 mg p.o. b.i.d. 6. Melatonin 1 mg p.o. at bedtime. 7. Maalox Plus 30 mL p.o. q.4 hours as needed. 8. Tylenol 650 mg p.o. q.4 hours as needed. 9. Omeprazole 20 mg p.o. daily. 10. Levothyroxine 88 mcg p.o. daily. ALLERGIES: No known drug allergies. FAMILY HISTORY: Mother with hypertension. SOCIAL HISTORY: The patient does not smoke and has never. Does not drink alcohol. Denies any illicit drug use. Her healthcare proxy is her son, who is currently at bedside and a daughter who lives in [place]. Her granddaughter, Jacobo, who is also at bedside who is a distance learning unit leader here at [employer]. REVIEW OF SYSTEMS: Revealed her chief complaint at this point is persistent shortness of breath and cough, but she denies any chest pain. No abdominal pain. No nausea, no vomiting. No constipation. No diarrhea. No urinary complaints. No arthralgias, no myalgias. No fevers or chills and no further constitutional complaints. PHYSICAL EXAMINATION GENERAL: Reveals an well-appearing, well-nourished older female, in no acute distress. VITAL SIGNS: Blood pressure 158/103, heart rate 115, respiratory rate 26, O2 saturation 93% on 2 L, temperature 97.3. HEENT: The patient is atraumatic, normocephalic. PERRLA, nonicteric sclerae. Oral mucosa is moist. Tongue is midline. Oropharynx with no erythema. NECK: Supple, nontender. No JVD noted. No carotid bruits auscultated. LUNGS: Clear throughout the lung waddell bilaterally with no adventitious breath sounds. She does have some minor crackles at the left base only. CARDIOVASCULAR: S1, S2 present. Rate and rhythm are irregular. No murmurs, gallops, or rubs noted. Currently, AFib on telemetry, mildly tachycardiac. ABDOMEN: Soft, nontender, nondistended. Positive bowel sounds in all 4 quadrants. : Deferred. MUSCULOSKELETAL: There is no clubbing, no cyanosis, no edema. She has +2 distal pulses palpable. Brisk capillary refill. Full range of motion. Gross motor and sensation are intact. NEUROLOGIC: Grossly intact with no focal deficits. PSYCHIATRIC: She is cooperative and appropriate. DIAGNOSTIC STUDIES/LABORATORY DATA: WBCs 10.1, RBCs 4.29, hemoglobin 13.4, hematocrit 40, platelets 334. Sodium 140, potassium 3.7, chloride 102, CO2 of 29, BUN 15, creatinine 0.94, GFR 56.2, glucose 112. Lactic acid 1.2. Calcium 9.4. Total bilirubin 1.20, AST 16, ALT 10, alk phos 110. CK-MB 0.7, troponin is negative at 0.00. CRP 139.58. BNP 194. Total protein 7.1. Albumin 3.6, globulin 3.5, albumin-globulin ratio is 1.0. D-dimer is less than 200. Imaging: Chest x-ray shows no evidence for any active cardiopulmonary disease. CT of the chest with contrast shows a trace left pleural effusion with atelectasis. No consolidation or pulmonary edema. A 2.1 cm indeterminant right renal mass, possibly a cyst, but not fully visualized. Consider nonemergent ultrasound if this has not been previously worked out. No other acute disease is noted. EKG shows atrial fibrillation with a rate of 105 with no further acute changes noted. IMPRESSION: Ms. Hess is an 88-year-old female with a several-week history of cough and shortness of breath, initially treated for pneumonia as an outpatient , who presents to the emergency department today with persistent shortness of breath, cough, and hypoxia. The patient will be admitted to inpatient. DIAGNOSES: 1. Shortness of breath with hypoxia: The patient has been treated as an outpatient with doxycycline. She does not have consolidation on chest x-ray since she does not appear to have a component of pneumonia. In terms of ruling her out for a pulmonary embolism, her D-dimer is less than 200. The patient is ready anticoagulated on Eliquis and she does not have any calf pain. She did receive 125 mg of methylprednisolone and we will continue this q.12 hours. It does sound like perhaps the patient was exposed to viral illness and may still have a viral component with some inflammatory response in lungs, so we will continue her on IV steroids. We will also continue her on supplemental O2 with goal O2 saturations of greater than 92%. For her cough which is unproductive, she can be on Tessalon Perles. She did receive 1 albuterol treatment in the ED , however, she is not wheezing and I do not feel that breathing treatments are necessary at this time. 2. Atrial fibrillation with mild rapid ventricular response: She is on metoprolol at home. Low dose of 12.5 mg b.i.d., however, if her rate is not currently controlled. I have just given her Lopressor 5 mg IV push to try to achieve some better rate control. This will be continued q.6 hours as needed. We will continue her Eliquis 5 mg b.i.d. We will do an echocardiogram in the morning. At this point, her shortness of breath may be mediated by her atrial fibrillation with rapid ventricular response. Because the patient states that she does not feel when she is in and out of her atrial fibrillation, she may have been persistently tachycardiac at home, which may have contributed to her current symptoms. 3. Hypothyroidism: She will be continued on her levothyroxine daily. 4. History of coronary artery disease: She will be continued on her aspirin, which she takes in the evenings and continued on her statin. 5. Chronic pain: The patient does take diazepam at night for back pain and spasms. This will also be continued. 6. DVT prophylaxis: The patient is already on Eliquis. 7. Activity: Ambulate as tolerated. 8. Diet: Heart healthy as tolerated. 9. Disposition: The patient will be admitted to inpatient. Rest of the patient's course will be determined by further diagnostics, laboratories and any other inputs from other providers as warranted during this admission. TIME SPENT: Approximately 65 minutes interfacing directly with the patient and discussing admission plan of care. This plan of care is also discussed with Dr. Sharon Stewart, the attending on this case who is in agreement with plan of care. KEENAN PADILLA, BRYAN [id number]/[facility] #: [id number] MIKEY
[2018-09-17 04:17] LABS: Urine Appearance Cloudy; Urine Bacteria Absent (Absent); Urine Bilirubin Negative (Negative); Urine Blood 2+ (Negative); Urine Color Amber; Urine Glucose 1+(50 mg/dL) (Negative); Urine Ketones 2+ (Negative); Urine Nitrite Negative (Negative); Urine Protein 2+(100 mg/dL) (Negative); Urine Red Blood Cell 3+(>10/hpf) (Absent); Urine Specific Gravity > 1.060 (1.010-1.030); Urine Squamous Epithelial Cell Present (Absent); Urine Urobilinogen Negative (Negative); Urine White Blood Cell Absent (Absent)
[2018-09-17] MEDS: Levothyroxine TAB* 25 MCG TAB PO SCH (05:51)
[2018-09-17 05:52] LABS: ABS Lymphocytes 1.2 10^3/ul (1.0-4.8); ABS Monocytes 0.1 10^3/ul (0-0.8); ABS Neutrophils 4.6 10^3/ul (1.5-7.7); Hematocrit 38 % (35-47); Hemoglobin 12.9 g/dL (12.0-16.0); Lymphocyte % 19.8 %; Mean Corpuscular HGB Conc 34 g/dL (31-36); Mean Corpuscular Hemoglobin 31 pg (27-31); Mean Corpuscular Volume 93 fL (80-97); Mean Platelet Volume 7.1 fL (7.4-10.4); Nucleated Red Blood Cells % 0.1; Platelet Count 343 10^3/uL (150-450); Red Blood Count 4.09 10^6 /uL (3.70-4.87); Red Cell Distribution Width 13 % (10-15); White Blood Count 5.8 10^3/uL (3.5-10.8)
[2018-09-17] MEDS: methylPREDNISolone SOD 40 MG* 1 ML VIAL IV SCH ×2 (05:52→16:55)
[2018-09-17 06:07] LABS: Albumin 3.4 g/dL (3.2-5.2); BUN/Creatinine Ratio 23.3 (8-20); Calcium 9.1 mg/dL (8.6-10.3); EGFR African American 71.5 (>60); EGFR Non-African American 59.1 (>60); Globulin 3.3 g/dL (2-4); Potassium 3.4 mmol/L (3.5-5.0); Total Bilirubin 0.7 mg/dL (0.2-1.0); Total Protein 6.7 g/dL (6.4-8.9)
[2018-09-17] MEDS ORDERED: Potassium Chlor TAB* 20 MEQ TAB.ER PO ONE (08:17)
[2018-09-17] MEDS ORDERED: Albuterol/Ipratropium NEB.SOL* Albuterol 2.5 MG/Ipratropium 0.5 MG 3 ML INH PRN (08:28)
[2018-09-17] MEDS: Apixaban* 5 MG TAB PO SCH ×2 (08:28→20:12)
[2018-09-17] MEDS: Metoprolol Succinate XL TAB* 25 MG PO SCH ×2 (08:28→20:13)
[2018-09-17] MEDS ORDERED: Metoprolol Succinate XL TAB* 25 MG PO SCH (09:00)
--- NOTE | 2018-09-17 13:51 | PN ---
Subjective Date of Service: 09/17/18 Interval History: Ms. Hess is feeling better today. Her SOB is not resolved, but improved from admission. She believes this is d/t supplemental oxygen. She still has a dry cough which is distressing. She denies CP, N/V. No palpitations. Appetite is good. No concerns from nursing. Family History: Unchanged from Admission Social History: Unchanged from Admission Past Medical History: Unchanged from Admission Objective Active Medications: Acetaminophen (Tylenol Tab*) 650 mg PO Q4H PRN FEVER/PAIN Albuterol/Ipratropium (Duoneb (Albuterol 2.5 Mg/Ipratropium 0.5 Mg)) 1 neb INH Q4H PRN SOB/WHEEZING Apixaban (Eliquis*) 5 mg PO BID [facility] Atorvastatin Calcium (Lipitor*) 10 mg PO BEDTIME [facility] Benzonatate (Tessalon Cap*) 100 mg PO BID PRN COUGH Diazepam (Valium Tab(*)) 5 mg PO BEDTIME PRN ANXIETY Levothyroxine Sodium (Synthroid Tab*) 25 mcg PO DAILY@0600 [facility] Methylprednisolone Sodium Succinate (Solu-Medrol 40 Mg) 40 mg IV Q12H [facility] Metoprolol Succinate (Toprol Xl Tab*) 25 mg PO BID [facility] Metoprolol Tartrate (Lopressor Iv*) 5 mg IV Q6H PRN TACHYCARDIA Ondansetron HCl (Zofran Inj*) 4 mg IV Q4H PRN NAUSEA/VOMITING Vital Signs - 8 hr 09/17/18 09/17/18 09/17/18 07:48 08:00 11:45 Temperature 97.7 F 97.6 F Pulse Rate 103 99 Respiratory 17 18 22 Rate Blood Pressure 130/89 134/88 (mmHg) O2 Sat by Pulse 96 97 Oximetry Oxygen Devices in Use Now: Nasal Cannula - 3L Appearance: Elderly female sitting in bed in NAD Eyes: No Scleral Icterus Ears/Nose/Mouth/Throat: Mucous Membranes Moist Neck: NL Appearance and Movements; NL JVP, Trachea Midline Respiratory: Symmetrical Chest Expansion and Respiratory Effort, - - Scattered wheezing, otherwise clear Cardiovascular: NL Sounds; No Murmurs; No JVD, - - Irregular rhythm Extremities: No Edema Skin: No Rash or Ulcers Neurological: Alert and Oriented x 3 Lines/Tubes/Other Access: Clean, Dry and Intact Peripheral IV Nutrition: Taking PO's Result Diagrams: 09/17/18 05:32 09/17/18 05:32 Assess/Plan/Problems-Billing Assessment: Ms. Hess is an 88 yo F with PMH of chronic afib, CAD, GERD, HLD, and hypothyroidism; who presented to the ED with c/o cough and SOB and was found to be hypoxic and in rapid afib. - Patient Problems (1) Atrial fibrillation with RVR Code(s): I48.91 - UNSPECIFIED ATRIAL FIBRILLATION Comment: - Presenting with SOB and hypoxia - Rate up into the 140s while ambulating, in the 110s at rest - Discussed with Cardiology and patient is not a candidate for cardioversion d/ t her chronic afib; will need better rate control and possible ablation if rate cannot be controlled with medication - Increase metoprolol; continue Eliquis (2) Cough Code(s): R05 - COUGH Comment: - Suspect secondary to viral illness; no evidence of pneumonia - Continue Solu-Medrol, Tessalon (3) CAD (coronary artery disease) Code(s): I25.10 - ATHSCL HEART DISEASE OF [place] CORONARY ARTERY W/O ANG PCTRS Comment: - No acute concerns - Continue metoprolol, atorvastatin (4) HLD (hyperlipidemia) Code(s): E78.5 - HYPERLIPIDEMIA, UNSPECIFIED Comment: - Continue atorvastatin (5) GERD (gastroesophageal reflux disease) Code(s): K21.9 - GASTRO-ESOPHAGEAL REFLUX DISEASE WITHOUT ESOPHAGITIS Comment : - Continue pantoprazole (6) Hypothyroidism Code(s): E03.9 - HYPOTHYROIDISM, UNSPECIFIED Comment: - Continue levothyroxine (7) DVT prophylaxis Code(s): Z29.9 - ENCOUNTER FOR PROPHYLACTIC MEASURES, UNSPECIFIED Comment: - Eliquis (8) Full code status Code(s): Z78.9 - OTHER SPECIFIED HEALTH STATUS Comment: Status and Disposition: Observation. Anticipate d/c home when HR is controlled. Attending: Edna Brito
[2018-09-17] MEDS: Benzonatate CAP* 100 MG PO PRN ×2 (16:58→21:49)
[2018-09-17] MEDS: Acetaminophen TAB* 325 MG PO PRN (16:58)
[2018-09-17] MEDS: Atorvastatin* 10 MG TAB PO SCH (20:13)
[2018-09-18] MEDS: Levothyroxine TAB* 25 MCG TAB PO SCH (05:30)
[2018-09-18 06:55] LABS: BUN/Creatinine Ratio 26.6 (8-20); Calcium 9.5 mg/dL (8.6-10.3); EGFR Non-African American 56.2 (>60); Potassium 4.4 mmol/L (3.5-5.0)
[2018-09-18] MEDS: predniSONE TAB* 10 MG PO SCH (08:55)
[2018-09-18] MEDS: Apixaban* 5 MG TAB PO SCH ×2 (08:57→20:05)
[2018-09-18] MEDS: Pantoprazole TAB * 40 MG TAB PO SCH (08:57)
[2018-09-18] MEDS: Metoprolol Succinate XL TAB* 25 MG PO SCH ×2 (08:57→20:05)
[2018-09-18] MEDS ORDERED: Metoprolol Succinate XL TAB* 25 MG PO ONE (10:33)
--- NOTE | 2018-09-18 15:02 | PN ---
Subjective Date of Service: 09/18/18 Interval History: Ms. Hess is feeling okay today. She is still having some SOB at rest. No palpitations or dizziness. Denies CP. She has been up ambulating without difficulty. Still wearing oxygen for comfort. No concerns from nursing. Family History: Unchanged from Admission Social History: Unchanged from Admission Past Medical History: Unchanged from Admission Objective Active Medications: Acetaminophen (Tylenol Tab*) 650 mg PO Q4H PRN FEVER/PAIN Albuterol/Ipratropium (Duoneb (Albuterol 2.5 Mg/Ipratropium 0.5 Mg)) 1 neb INH Q4H PRN SOB/WHEEZING Apixaban (Eliquis*) 5 mg PO BID [facility] Atorvastatin Calcium (Lipitor*) 10 mg PO BEDTIME [facility] Benzonatate (Tessalon Cap*) 100 mg PO BID PRN COUGH Diazepam (Valium Tab(*)) 5 mg PO BEDTIME PRN ANXIETY Levothyroxine Sodium (Synthroid Tab*) 25 mcg PO DAILY@0600 [facility] Metoprolol Succinate (Toprol Xl Tab*) 37.5 mg PO BID [facility] Metoprolol Tartrate (Lopressor Iv*) 5 mg IV Q6H PRN TACHYCARDIA Ondansetron HCl (Zofran Inj*) 4 mg IV Q4H PRN NAUSEA/VOMITING Pantoprazole Sodium (Protonix Tab*) 40 mg PO DAILY [facility] Prednisone (Deltasone Tab*) 30 mg PO DAILY [facility] Vital Signs - 8 hr 09/18/18 09/18/18 09/18/18 07:30 08:00 11:09 Temperature 97.8 F 97.4 F Pulse Rate 74 88 Respiratory 19 18 18 Rate Blood Pressure 132/84 124/82 (mmHg) O2 Sat by Pulse 97 97 Oximetry 09/18/18 11:16 Temperature Pulse Rate Respiratory Rate Blood Pressure (mmHg) O2 Sat by Pulse 97 Oximetry Oxygen Devices in Use Now: Nasal Cannula - 2L Appearance: Elderly female sitting in bed in NAD Eyes: No Scleral Icterus Ears/Nose/Mouth/Throat: Mucous Membranes Moist Neck: NL Appearance and Movements; NL JVP, Trachea Midline Respiratory: Symmetrical Chest Expansion and Respiratory Effort, Clear to Auscultation Cardiovascular: NL Sounds; No Murmurs; No JVD, - - Irregular rhythm Abdominal: NL Sounds; No Tenderness; No Distention Extremities: No Edema Neurological: Alert and Oriented x 3 Lines/Tubes/Other Access: Clean, Dry and Intact Peripheral IV Nutrition: Taking PO's Result Diagrams: 09/17/18 05:32 09/18/18 05:41 Assess/Plan/Problems-Billing Assessment: Ms. Hess is an 88 yo F with PMH of chronic afib, CAD, GERD, HLD, and hypothyroidism; who presented to the ED with c/o cough and SOB and was found to be hypoxic and in rapid afib. - Patient Problems (1) Atrial fibrillation with RVR Code(s): I48.91 - UNSPECIFIED ATRIAL FIBRILLATION Comment: - Presenting with SOB and hypoxia - Rate in the 90s overnight, but up into the 120s this morning while awake - Discussed with Cardiology and patient is not a candidate for cardioversion d/ t her chronic afib; will need better rate control and possible ablation if rate cannot be controlled with medication - Increase metoprolol; continue Eliquis (2) Cough Code(s): R05 - COUGH Comment: - Suspect secondary to viral illness; no evidence of pneumonia - Continue prednisone, Tessalon (3) CAD (coronary artery disease) Code(s): I25.10 - ATHSCL HEART DISEASE OF [place] CORONARY ARTERY W/O ANG PCTRS Comment: - No acute concerns - Continue metoprolol, atorvastatin (4) HLD (hyperlipidemia) Code(s): E78.5 - HYPERLIPIDEMIA, UNSPECIFIED Comment: - Continue atorvastatin (5) GERD (gastroesophageal reflux disease) Code(s): K21.9 - GASTRO-ESOPHAGEAL REFLUX DISEASE WITHOUT ESOPHAGITIS Comment : - Continue pantoprazole (6) Hypothyroidism Code(s): E03.9 - HYPOTHYROIDISM, UNSPECIFIED Comment: - Continue levothyroxine (7) DVT prophylaxis Code(s): Z29.9 - ENCOUNTER FOR PROPHYLACTIC MEASURES, UNSPECIFIED Comment: - Eliquis (8) Full code status Code(s): Z78.9 - OTHER SPECIFIED HEALTH STATUS Comment: Status and Disposition: Observation. Anticipate d/c home when HR is controlled, hopefully tomorrow. Attending: Lorena Rosales
[2018-09-18] MEDS: Acetaminophen TAB* 325 MG PO PRN (16:12)
[2018-09-18] MEDS: Atorvastatin* 10 MG TAB PO SCH (20:07)
[2018-09-18] MEDS: Benzonatate CAP* 100 MG PO PRN (20:49)
[2018-09-19] MEDS: Levothyroxine TAB* 25 MCG TAB PO SCH (05:15)
--- NOTE | 2018-09-19 07:57 | PN ---
Subjective Date of Service: 09/19/18 Interval History: Patient reports she is feeling much better than when she was admitted. Continues to have dry cough, no sputum production. Denies wheezing, SOB, or CP. Reports she just got up to go to the bathroom and she felt she did well. Denies dizziness. Denies hx of smoking but had 50+ years of second hand smoke. denies hx of asthma /copd. Family History: Unchanged from Admission Social History: Unchanged from Admission Past Medical History: Unchanged from Admission Objective Active Medications: Acetaminophen (Tylenol Tab*) 650 mg PO Q4H PRN PRN Reason: FEVER/PAIN Last Admin: 09/18/18 16:12 Dose: 650 mg Albuterol/Ipratropium (Duoneb (Albuterol 2.5 Mg/Ipratropium 0.5 Mg)) 1 neb INH Q4H PRN PRN Reason: SOB/WHEEZING Apixaban (Eliquis*) 5 mg PO BID [facility] Last Admin: 09/18/18 20:05 Dose: 5 mg Atorvastatin Calcium (Lipitor*) 10 mg PO BEDTIME [facility] Last Admin: 09/18/18 20:07 Dose: 10 mg Benzonatate (Tessalon Cap*) 100 mg PO BID PRN PRN Reason: COUGH Last Admin: 09/18/18 20:49 Dose: 100 mg Diazepam (Valium Tab(*)) 5 mg PO BEDTIME PRN PRN Reason: ANXIETY Levothyroxine Sodium (Synthroid Tab*) 25 mcg PO DAILY@0600 [facility] Last Admin: 09/19/18 05:15 Dose: 25 mcg Metoprolol Succinate (Toprol Xl Tab*) 37.5 mg PO BID [facility] Last Admin: 09/18/18 20:05 Dose: 37.5 mg Metoprolol Tartrate (Lopressor Iv*) 5 mg IV Q6H PRN PRN Reason: TACHYCARDIA Ondansetron HCl (Zofran Inj*) 4 mg IV Q4H PRN PRN Reason: NAUSEA/VOMITING Pantoprazole Sodium (Protonix Tab*) 40 mg PO DAILY [facility] Last Admin: 09/18/18 08:57 Dose: 40 mg Prednisone (Deltasone Tab*) 30 mg PO DAILY [facility] Last Admin: 09/18/18 08:55 Dose: 30 mg Vital Signs - 8 hr 09/19/18 09/19/18 00:13 04:19 Temperature 97.3 F Pulse Rate 85 69 Respiratory 20 18 Rate Blood Pressure 137/85 (mmHg) O2 Sat by Pulse 96 96 Oximetry Oxygen Devices in Use Now: Nasal Cannula - 1.5 L NC Appearance: A+Ox3 elderly female in NAD - amswers questions appropriately Eyes: No Scleral Icterus, PERRLA Ears/Nose/Mouth/Throat: NL Teeth, Lips, Gums, Mucous Membranes Moist Respiratory: Symmetrical Chest Expansion and Respiratory Effort, - - right upper lobe exp wheeze otherwise clear Cardiovascular: NL Sounds; No Murmurs; No JVD, RRR, No Edema Abdominal: NL Sounds; No Tenderness; No Distention Extremities: No Edema, No Clubbing, Cyanosis Skin: No Rash or Ulcers, No Nodules or Sclerosis Neurological: Alert and Oriented x 3, NL Sensation, NL Muscle Strength and Tone Lines/Tubes/Other Access: Clean, Dry and Intact Peripheral IV Nutrition: Taking PO's Result Diagrams: 09/17/18 05:32 09/18/18 05:41 Additional Lab and Data: Lab Results 09/16/18 Range/Units 17:12 WBC 10.1 (3.5-10.8) 10^3/uL RBC 4.29 (3.70-4.87) 10^6 /uL Hgb 13.4 (12.0-16.0) g/dL Hct 40 (35-47) % MCV 93 (80-97) fL MCH 31 (27-31) pg MCHC 34 (31-36) g/dL RDW 13 (10-15) % Plt Count 334 (150-450) 10^3/uL MPV 6.9 L (7.4-10.4) fL Neut % (Auto) 54.2 % Lymph % (Auto) 34.8 % [place] % (Auto) 9.4 % Eos % (Auto) 0.5 % Baso % (Auto) 1.1 % Absolute Neuts (auto) 5.5 (1.5-7.7) 10^3/ul Absolute Lymphs (auto) 3.5 (1.0-4.8) 10^3/ul Absolute Monos (auto) 1.0 H (0-0.8) 10^3/ul Absolute Eos (auto) 0.1 (0-0.6) 10^3/ul Absolute Basos (auto) 0.1 (0-0.2) 10^3/ul Absolute Nucleated RBC 0.0 10^3/ul Nucleated RBC % 0.0 Assess/Plan/Problems-Billing Assessment: Ms. Hess is an 88 yo F with PMH of chronic afib, CAD, GERD, HLD, and hypothyroidism; who presented to the ED with c/o cough and SOB and was found to be hypoxic and in rapid afib. - Patient Problems (1) Atrial fibrillation with RVR Comment: - Presenting with SOB and hypoxia - possible viral illness - Rate improving but continues to be liabile into 110's - Cardiology reports patient is not a candidate for cardioversion d/t her chronic afib; will need better rate control and possible ablation if rate cannot be controlled with medication - metoprolol was increased; continue Eliquis (2) Cough Comment: - Suspect secondary to viral illness; no evidence of pneumonia - continues to be mildy hypoxic when taken off oxygen dipping down to 88-90%; oxygen NC 1.5L only to maitin O2 sat > 92%. [place] hx of 2nd hand smoke as child/teen/adult. No Hx of asthma/COPD but mostly likely has reactive airway disease to viral illness. Slowly improving. No sputum production - Continue prednisone, Tessalon (3) GERD (gastroesophageal reflux disease) Comment: - Continue pantoprazole (4) CAD (coronary artery disease) Comment: - No acute concerns - Continue metoprolol, atorvastatin (5) HLD (hyperlipidemia) Comment: - Continue atorvastatin (6) HTN (hypertension) Comment: controlled (7) Hypothyroidism Comment: - Check TSH - Continue levothyroxine (8) Full code status Comment: (9) DVT prophylaxis Comment: - Eliquis Status and Disposition: Observation. Anticipate d/c home when HR is controlled and no longer requiring oxygen
[2018-09-19] MEDS: Metoprolol Succinate XL TAB* 25 MG PO SCH ×2 (08:28→21:17)
[2018-09-19] MEDS: Apixaban* 5 MG TAB PO SCH ×2 (08:37→21:15)
[2018-09-19] MEDS: Pantoprazole TAB * 40 MG TAB PO SCH (08:37)
[2018-09-19] MEDS: predniSONE TAB* 10 MG PO SCH (08:38)
[2018-09-19 09:51] LABS: BUN/Creatinine Ratio 32.1 (8-20); Calcium 9.1 mg/dL (8.6-10.3); EGFR African American 80.7 (>60); EGFR Non-African American 66.7 (>60); Potassium 3.4 mmol/L (3.5-5.0)
[2018-09-19 09:52] LABS: Magnesium 1.8 mg/dL (1.9-2.7)
[2018-09-19 10:09] LABS: TSH (Thyroid Stimulating Horm) 1.3 mcIU/mL (0.34-5.60)
[2018-09-19] MEDS ORDERED: Magnesium Sulfate 2 GM IV* 2 GM/50 ML BAG IVPB ONE (11:38)
[2018-09-19] MEDS ORDERED: Potassium Chlor TAB* 20 MEQ TAB.ER PO ONE ×2 (12:00→14:00)
--- NOTE | 2018-09-19 19:50 | ECHO ---
*[facility]* [place] [address] Fax #: [phone] Transthoracic Echocardiogram Patient: Deshawn, Height: 63 in / 160 Lynette Dobbins cm : 1930 Weight: 142.7 lb / Study Date: 09/17/2018 64.9 kg Age: 88 BP: 130 / 78 Gender: F BMI/BSA: 25.3 kg/m^2 HR: 122 bpm / 1.68 m^2 *Business Mgr: * Jayna Jacobson RDCS RN *Referring Physician: * Genesis Hays *Reading Physician: * Keith Slaughter MD Indications: SOB. History: Atrial fibrillation. Coronary artery disease with stent placed. Risk factors: Hypertension. Dyslipidemia. Conclusions Summary: 1. Left ventricle: The cavity size is normal. Wall thickness is mildly increased. Systolic function is at the lower limits of normal. The estimated ejection fraction is 50-55%. There are no regional wall motion abnormalities. 2. Right ventricle: Systolic function is low normal. 3. Aortic valve: There is no evidence of stenosis. There is trace regurgitation. 4. Tricuspid valve: There is mild regurgitation. 5. Pericardium, extracardiac: There is no significant pericardial effusion. 6. Compared to study of 12/29/13, there is little change. Study data: Transthoracic echocardiogram. Procedure: Transthoracic echocardiography was performed. Image quality was fair. Complete 2D, spectral Doppler, and color flow Doppler. Patient status: Inpatient. Patient room number: 435. Rhythm: Atrial fibrillation. Findings Left ventricle: The cavity size is normal. Wall thickness is mildly increased. Systolic function is at the lower limits of normal. The estimated ejection fraction is 50-55%. There are no regional wall motion abnormalities. There is no consistent Doppler evidence of clinically significant diastolic dysfunction. Right ventricle: The cavity size is normal. Systolic function is low normal. The estimated peak pressure is 19 mm Hg. Left atrium: The atrium is normal in size. Right atrium: The atrium is mildly dilated. Mitral valve: The leaflets are mildly thickened. There is no evidence of stenosis. There is mild regurgitation. Aortic valve: The valve is trileaflet. The leaflets are mildly thickened. There is no evidence of stenosis. There is trace regurgitation. Tricuspid valve: The valve is structurally normal. There is no evidence of stenosis. There is mild regurgitation. Pulmonic valve: Not well visualized. There is no evidence of stenosis. There is trace regurgitation. Aorta: Aortic root: The aortic root is not dilated. Ascending aorta: The ascending aorta is not dilated. Aortic arch: The aortic arch is not dilated. Pericardium: A prominent pericardial fat pad is present. There is no significant pericardial effusion. Pulmonary arteries: Not well visualized. Systolic pressure is within the normal range, estimated to be 19 mm Hg. Systemic veins: Inferior vena cava: The vessel is normal in size. The respirophasic diameter changes are in the normal range (>= 50%). Measurements Left ventricle Value Ref Aortic valve continued Value Ref YASIR, LAX 3.9 cm 3.8 - Peak v, S 1.23 m/sec ----- 5.2 VTI, S 23.0 cm ----- ESD, LAX 2.5 cm 2.2 - Mean grad, S 4.0 mm Hg ----- 3.5 Peak grad, S 6.0 mm Hg ----- FS, LAX 34 % 27 - 45 LVOT/AV, VTI ratio 0.52 ----- PW, ED, LAX (H) 1.1 cm 0.6 - 0.9 Mitral valve Value Ref IVS/PW, ED 0.99 -------- Peak E 0.93 m/sec ----- E', lat maxi, TDI 15.7 cm/sec >=10.0 Decel time 123 ms ----- E/e', lat maxi, TDI 6 -------- Peak grad, D 3.4 mm Hg --- -- E', med maxi, TDI 7.3 cm/sec >=7.0 E/e', med maxi, TDI 13 -------- Pulmonic valve Value Ref E', avg, TDI 11.5 cm/sec -------- Peak v, S 0.78 m/sec --- -- E/e', avg, TDI 8 <=14 Peak grad, S 2.0 mm Hg ----- LVOT Value Ref Tricuspid valve Value Ref Peak eleazar, S 0.75 m/sec -------- TR peak v 2 m/sec <=2.8 VTI, S 11.9 cm -------- Peak RV-RA grad, S 16 mm Hg ----- Mean grad, S 1 mm Hg -------- Aortic root Value Ref Ventricular septum Value Ref Root diam 3.0 cm <3.9 IVS, ED (H) 1.1 cm 0.6 - Root max diam, ED 3.0 cm <3.9 0.9 Ascending aorta Value Ref Right ventricle Value Ref AAo AP diam, S 3.3 cm ----- YASIR, LAX 3.2 cm -------- AAo AP diam/bsa, S 2.0 cm/m^2 ----- YASIR minor ax, A4C 3.4 cm 1.9 - mid 3.5 Aortic arch Value Ref Pressure, S 19 mm Hg -------- Arch diam 2.5 cm ----- Left atrium Value Ref Decending aorta Value Ref ML dim, A4C 4.7 cm -------- Félix peak eleazar 0.36 m/sec ----- SI dim, A4C 5.6 cm -------- Vol/bsa, ES, 1-p 32 ml/m^2 11 - 40 Pulmonary artery Value Ref A4C Pressure, S 19.0 mm Hg ----- Vol/bsa, ES, A/L 32 ml/m^2 16 - 34 Inferior vena cava Value Ref Right atrium Value Ref Diam 1.8 cm ----- SI dim, ES (H) 5.5 cm 3.4 - 5.3 ML dim, ES, A4C (H) 4.8 cm 2.6 - 4.4 SI dim, ES, A4C (H) 5.5 cm 3.4 - 5.3 Estimated RAP 3 mm Hg -------- Aortic valve Value Ref Maxi diam, ED 2.1 cm -------- Legend: (L) and (H) rhonda values outside specified reference range. Prepared and electronically signed by Keith Slaughter MD 09/19/2018 19:50
[2018-09-19] MEDS: Atorvastatin* 10 MG TAB PO SCH (21:15)
[2018-09-19] MEDS: Acetaminophen TAB* 325 MG PO PRN (21:20)
[2018-09-20] MEDS: Levothyroxine TAB* 25 MCG TAB PO SCH (06:13)
--- NOTE | 2018-09-20 08:31 | PN ---
Subjective Date of Service: 09/20/18 Interval History: Patient reports she feels better today but her cough seems to be "more harsh" after she started using the flutter valve yesterday, no sputum production. Denies fever or chills. No N/V/D Denies sob. feels steady on her feet; no dizziness Family History: Unchanged from Admission Social History: Unchanged from Admission Past Medical History: Unchanged from Admission Objective Active Medications: Acetaminophen (Tylenol Tab*) 650 mg PO Q4H PRN PRN Reason: FEVER/PAIN Last Admin: 09/19/18 21:20 Dose: 650 mg Albuterol/Ipratropium (Duoneb (Albuterol 2.5 Mg/Ipratropium 0.5 Mg)) 1 neb INH Q4H PRN PRN Reason: SOB/WHEEZING Last Admin: 09/19/18 10:14 Dose: 1 neb Apixaban (Eliquis*) 5 mg PO BID [facility] Last Admin: 09/19/18 21:15 Dose: 5 mg Atorvastatin Calcium (Lipitor*) 10 mg PO BEDTIME [facility] Last Admin: 09/19/18 21:15 Dose: 10 mg Benzonatate (Tessalon Cap*) 100 mg PO BID PRN PRN Reason: COUGH Last Admin: 09/18/18 20:49 Dose: 100 mg Diazepam (Valium Tab(*)) 5 mg PO BEDTIME PRN PRN Reason: ANXIETY Levothyroxine Sodium (Synthroid Tab*) 25 mcg PO DAILY@0600 [facility] Last Admin: 09/20/18 06:13 Dose: 25 mcg Metoprolol Succinate (Toprol Xl Tab*) 50 mg PO BID [facility] Last Admin: 09/19/18 21:17 Dose: 50 mg Metoprolol Tartrate (Lopressor Iv*) 5 mg IV Q6H PRN PRN Reason: TACHYCARDIA Ondansetron HCl (Zofran Inj*) 4 mg IV Q4H PRN PRN Reason: NAUSEA/VOMITING Pantoprazole Sodium (Protonix Tab*) 40 mg PO DAILY [facility] Last Admin: 09/19/18 08:37 Dose: 40 mg Prednisone (Deltasone Tab*) 30 mg PO DAILY [facility] Last Admin: 09/19/18 08:38 Dose: 30 mg Vital Signs - 8 hr 09/20/18 09/20/18 09/20/18 03:40 04:12 07:29 Temperature 97.4 F 97.8 F Pulse Rate 74 90 85 Respiratory 16 16 18 Rate Blood Pressure 142/98 148/77 (mmHg) O2 Sat by Pulse 98 93 97 Oximetry Oxygen Devices in Use Now: Nasal Cannula Appearance: well developed 88 yo female A+O x3 in NAD Eyes: PERRLA Ears/Nose/Mouth/Throat: NL Teeth, Lips, Gums, Mucous Membranes Moist Neck: NL Appearance and Movements; NL JVP Respiratory: Symmetrical Chest Expansion and Respiratory Effort, - - diminished B/L; RLL crackle Cardiovascular: NL Sounds; No Murmurs; No JVD, RRR, No Edema Abdominal: NL Sounds; No Tenderness; No Distention Extremities: No Edema, No Clubbing, Cyanosis Skin: No Rash or Ulcers, No Nodules or Sclerosis Neurological: Alert and Oriented x 3, NL Sensation, NL Gait, NL Muscle Strength and Tone Lines/Tubes/Other Access: Clean, Dry and Intact Peripheral IV Nutrition: Taking PO's Result Diagrams: 09/17/18 05:32 09/19/18 08:57 Additional Lab and Data: Lab Results 09/16/18 Range/Units 17:12 WBC 10.1 (3.5-10.8) 10^3/uL RBC 4.29 (3.70-4.87) 10^6 /uL Hgb 13.4 (12.0-16.0) g/dL Hct 40 (35-47) % MCV 93 (80-97) fL MCH 31 (27-31) pg MCHC 34 (31-36) g/dL RDW 13 (10-15) % Plt Count 334 (150-450) 10^3/uL MPV 6.9 L (7.4-10.4) fL Neut % (Auto) 54.2 % Lymph % (Auto) 34.8 % [place] % (Auto) 9.4 % Eos % (Auto) 0.5 % Baso % (Auto) 1.1 % Absolute Neuts (auto) 5.5 (1.5-7.7) 10^3/ul Absolute Lymphs (auto) 3.5 (1.0-4.8) 10^3/ul Absolute Monos (auto) 1.0 H (0-0.8) 10^3/ul Absolute Eos (auto) 0.1 (0-0.6) 10^3/ul Absolute Basos (auto) 0.1 (0-0.2) 10^3/ul Absolute Nucleated RBC 0.0 10^3/ul Nucleated RBC % 0.0 Assess/Plan/Problems-Billing Assessment: Ms. Hess is an 88 yo F with PMH of chronic afib, CAD, GERD, HLD, and hypothyroidism; who presented to the ED with c/o cough and SOB and was found to be hypoxic and in rapid afib. - Patient Problems (1) Atrial fibrillation with RVR Comment: - Presenting with SOB and hypoxia - possible viral upper resp illness - Rate control improving - Cardiology reports patient is not a candidate for cardioversion d/t her chronic afib; will need better rate control and possible ablation if rate cannot be controlled with medication - metoprolol was increased to 50 mg BID 09/19 - tolerating well - continue Eliquis (2) Cough Comment: - Suspect secondary to viral illness; no evidence of pneumonia on chest xray - however overnight did develop more harsh cough and lung exam is more diminished - plan to obtain chest xray. 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 No Hx of asthma/COPD but mostly likely has reactive airway disease to viral illness. No sputum production - Continue prednisone - titrate, Tessalon - continue flutter valve - continue nebs prn (3) GERD (gastroesophageal reflux disease) Comment: - Continue pantoprazole (4) CAD (coronary artery disease) Comment: - No acute concerns - Continue metoprolol, atorvastatin (5) HLD (hyperlipidemia) Comment: - Continue atorvastatin (6) HTN (hypertension) Comment: controlled (7) Hypothyroidism Comment: - TSH wnls - Continue levothyroxine (8) Full code status Comment: (9) DVT prophylaxis Comment: - Eliquis Status and Disposition: Observation. Anticipate d/c home when HR is controlled and no longer requiring oxygen
[2018-09-20] MEDS: Pantoprazole TAB * 40 MG TAB PO SCH (08:53)
[2018-09-20] MEDS: Metoprolol Succinate XL TAB* 25 MG PO SCH ×2 (08:53→21:06)
[2018-09-20] MEDS: Benzonatate CAP* 100 MG PO PRN (08:53)
[2018-09-20] MEDS: Apixaban* 5 MG TAB PO SCH ×2 (08:53→21:06)
[2018-09-20] MEDS ORDERED: predniSONE TAB* 20 MG PO SCH (09:00)
[2018-09-20] MEDS ORDERED: Potassium Chlor TAB* 20 MEQ TAB.ER PO ONE (11:23)
[2018-09-20] MEDS ORDERED: GuaiFENesin DM* 5 ML UDC PO PRN (17:00)
[2018-09-20] MEDS: GuaiFENesin DM sugar free* 5 ML UDC PO PRN (19:03)
[2018-09-20] MEDS: Atorvastatin* 10 MG TAB PO SCH (21:06)
[2018-09-21] MEDS: GuaiFENesin DM sugar free* 5 ML UDC PO PRN (01:40)
[2018-09-21] MEDS: Levothyroxine TAB* 25 MCG TAB PO SCH (05:51)
[2018-09-21 06:11] LABS: Hematocrit 41 % (35-47); Hemoglobin 13.7 g/dL (12.0-16.0); Mean Corpuscular HGB Conc 34 g/dL (31-36); Mean Corpuscular Hemoglobin 31 pg (27-31); Mean Corpuscular Volume 92 fL (80-97); Platelet Count 466 10^3/uL (150-450); Red Cell Distribution Width 13 % (10-15); White Blood Count 13.2 10^3/uL (3.5-10.8)
[2018-09-21 06:25] LABS: BUN/Creatinine Ratio 24.1 (8-20); Calcium 9.4 mg/dL (8.6-10.3); EGFR African American 74.4 (>60); EGFR Non-African American 61.4 (>60); Magnesium 2.1 mg/dL (1.9-2.7); Potassium 3.9 mmol/L (3.5-5.0)
[2018-09-21 06:30] LABS: ABS Basophils 0.1 10^3/ul (0-0.2); ABS Eosinophils 0.2 10^3/ul (0-0.6); ABS Lymphocytes 7.3 10^3/ul (1.0-4.8); ABS Monocytes 0.9 10^3/ul (0-0.8); ABS Neutrophils 4.7 10^3/ul (1.5-7.7); Eosinophil % 1.3 %; Lymphocyte % 55.7 %; Nucleated Red Blood Cells % 0.2
[2018-09-21] MEDS: Apixaban* 5 MG TAB PO SCH (08:05)
[2018-09-21] MEDS: Pantoprazole TAB * 40 MG TAB PO SCH (08:06)
[2018-09-21] MEDS: Metoprolol Succinate XL TAB* 25 MG PO SCH (08:06)
[2018-09-21 08:09] VITALS: BP 132/93
[2018-09-21] MEDS ORDERED: predniSONE TAB* 20 MG PO SCH (09:00)
--- NOTE | 2018-09-21 09:51 | DCNOTE ---
Subjective Date of Service: 09/21/18 Interval History: Patient reports she feels much better today reporting her cough has improved - she continues to have a harsh cough but overall getting better. No sputum production. Denies SOB. Denies fever and chills. No N/V/D. reports appetite is improving Family History: Unchanged from Admission Social History: Unchanged from Admission Past Medical History: Unchanged from Admission Objective Active Medications: Acetaminophen (Tylenol Tab*) 650 mg PO Q4H PRN PRN Reason: FEVER/PAIN Last Admin: 09/19/18 21:20 Dose: 650 mg Albuterol/Ipratropium (Duoneb (Albuterol 2.5 Mg/Ipratropium 0.5 Mg)) 1 neb INH Q4H PRN PRN Reason: SOB/WHEEZING Last Admin: 09/19/18 10:14 Dose: 1 neb Apixaban (Eliquis*) 5 mg PO BID [facility] Last Admin: 09/21/18 08:05 Dose: 5 mg Atorvastatin Calcium (Lipitor*) 10 mg PO BEDTIME [facility] Last Admin: 09/20/18 21:06 Dose: 10 mg Benzonatate (Tessalon Cap*) 100 mg PO BID PRN PRN Reason: COUGH Last Admin: 09/20/18 08:53 Dose: 100 mg Diazepam (Valium Tab(*)) 5 mg PO BEDTIME PRN PRN Reason: ANXIETY Guaifenesin/Dextromethorphan (Robitussin Dm Sugar Free*) 5 ml PO Q6H PRN PRN Reason: COUGH Last Admin: 09/21/18 01:40 Dose: 5 ml Levothyroxine Sodium (Synthroid Tab*) 25 mcg PO DAILY@0600 [facility] Last Admin: 09/21/18 05:51 Dose: 25 mcg Metoprolol Succinate (Toprol Xl Tab*) 50 mg PO BID [facility] Last Admin: 09/21/18 08:06 Dose: 50 mg Metoprolol Tartrate (Lopressor Iv*) 5 mg IV Q6H PRN PRN Reason: TACHYCARDIA Ondansetron HCl (Zofran Inj*) 4 mg IV Q4H PRN PRN Reason: NAUSEA/VOMITING Pantoprazole Sodium (Protonix Tab*) 40 mg PO DAILY [facility] Last Admin: 09/21/18 08:06 Dose: 40 mg Prednisone (Deltasone Tab*) 20 mg PO DAILY [facility] Last Admin: 09/21/18 08:06 Dose: 20 mg Vital Signs - 8 hr 09/21/18 09/21/18 09/21/18 03:00 07:44 08:00 Temperature 97.4 F 98 F Pulse Rate 74 103 Respiratory 16 18 18 Rate Blood Pressure 142/95 132/93 (mmHg) O2 Sat by Pulse 95 94 Oximetry Oxygen Devices in Use Now: None Appearance: elderly female well developed A+O x3 in NAD Eyes: No Scleral Icterus, PERRLA Ears/Nose/Mouth/Throat: NL Teeth, Lips, Gums, Mucous Membranes Moist Neck: NL Appearance and Movements; NL JVP Respiratory: Symmetrical Chest Expansion and Respiratory Effort, - - mild rhonchi noted bilaterally that clears with cough Cardiovascular: NL Sounds; No Murmurs; No JVD, RRR, No Edema Abdominal: NL Sounds; No Tenderness; No Distention Extremities: No Edema, No Clubbing, Cyanosis Skin: No Rash or Ulcers, No Nodules or Sclerosis Neurological: Alert and Oriented x 3, NL Sensation, NL Gait, NL Muscle Strength and Tone Lines/Tubes/Other Access: Clean, Dry and Intact Peripheral IV Result Diagrams: 09/21/18 05:38 09/21/18 05:38 Additional Lab and Data: Lab Results 09/16/18 Range/Units 17:12 WBC 10.1 (3.5-10.8) 10^3/uL RBC 4.29 (3.70-4.87) 10^6 /uL Hgb 13.4 (12.0-16.0) g/dL Hct 40 (35-47) % MCV 93 (80-97) fL MCH 31 (27-31) pg MCHC 34 (31-36) g/dL RDW 13 (10-15) % Plt Count 334 (150-450) 10^3/uL MPV 6.9 L (7.4-10.4) fL Neut % (Auto) 54.2 % Lymph % (Auto) 34.8 % [place] % (Auto) 9.4 % Eos % (Auto) 0.5 % Baso % (Auto) 1.1 % Absolute Neuts (auto) 5.5 (1.5-7.7) 10^3/ul Absolute Lymphs (auto) 3.5 (1.0-4.8) 10^3/ul Absolute Monos (auto) 1.0 H (0-0.8) 10^3/ul Absolute Eos (auto) 0.1 (0-0.6) 10^3/ul Absolute Basos (auto) 0.1 (0-0.2) 10^3/ul Absolute Nucleated RBC 0.0 10^3/ul Nucleated RBC % 0.0 Assess/Plan/Problems-Billing Assessment: Ms. Hess is an 88 yo F with PMH of chronic afib, CAD, GERD, HLD, and hypothyroidism; who presented to the ED with c/o cough and SOB and was found to be hypoxic and in rapid afib. 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 No Hx of asthma/COPD but mostly likely has reactive airway disease to viral illness. No sputum production - DC prednisone recived a 5 day course - continue flutter valve - DC home on albuterol inhaler (3) GERD (gastroesophageal reflux disease) Comment: - Continue pantoprazole (4) CAD (coronary artery disease) Comment: - No acute concerns - Continue metoprolol, atorvastatin (5) HLD (hyperlipidemia) Comment: - Continue atorvastatin (6) HTN (hypertension) Comment: controlled (7) Hypothyroidism Comment: - TSH wnls - Continue levothyroxine (8) Full code status Comment: (9) DVT prophylaxis Comment: - Eliquis Status and Disposition: inpatient. DC home today. Condition at DC: stable
--- NOTE | 2018-09-21 12:23 | DS ---
Amended report to enter cosigning physician. DISCHARGE SUMMARY: DATE OF ADMISSION: 09/16/18 DATE OF DISCHARGE: 09/21/18 PROVIDER: Dominick Donaldson NP. ATTENDING PHYSICIAN: Dr. Cardona* (dictated by Dominick Donaldson NP). PRIMARY CARE PROVIDER: Dr. Corky Finn ADMINISTRATIVE NURSING SUPERVISOR: Dr. Gonzalez DISCHARGE DIAGNOSES: 1. Cough, shortness of breath with hypoxia thought to be secondary to viral illness and reactive airways disease. 2. Atrial fibrillation with rapid ventricular response. SECONDARY DIAGNOSES: 1. History of coronary artery disease, status post stent placement in 2005. 2. Atrial fibrillation, on Xarelto. 3. Gastroesophageal reflux disease. 4. Hypothyroidism. 5. Hyperlipidemia. DISCHARGE MEDICATIONS: 1. Omeprazole 20 mg p.o. daily. 2. Mucinex 600 mg p.o. b.i.d. 3. Synthroid 25 mcg p.o. daily. 4. Benadryl 25 mg p.o. daily p.r.n. 5. Simvastatin 20 mg p.o. at bedtime. 6. FiberCon 625 mg p.o. b.i.d. 7. [place] EPA, DHA 1200 mg p.o. daily. 8. Nitroglycerin 0.4 mg sublingual q.5 minutes p.r.n. chest pain. 9. Valium 5 mg p.o. at bedtime p.r.n. 10. Eliquis 5 mg p.o. b.i.d. New medications: 1. Zinc 30 mg p.o. daily x14 days. 2. Vitamin C 1000 mg p.o. daily. 3. Albuterol HFA inhaler 1 to 2 puffs INH q.4 hours p.r.n. shortness of breath , wheezing. Medications changed: Metoprolol succinate XL 50 mg p.o. b.i.d. (changed from 12.5 mg p.o. b.i.d.). ALLERGIES: No known allergies. CODE STATUS: Full code. HISTORY OF PRESENT ILLNESS AND HOSPITAL COURSE: Please see history and physical by Genesis Cadena NP, for full admission details, but in summary this is an 88- year-old female who lives independently at home with a past medical history as stated above, who presented to the emergency department on 09/16/18 with compliant of cough, shortness of breath, and hypoxia sent from the potato chip packaging machine operator's office. The patient reports a week prior she came down with a cold with a cough and was seen by her primary care provider's office and was given a course of doxycycline. At that time, she had a chest x-ray, which did not show any consolidation, but there was concern for perhaps early signs of community-acquired pneumonia. The patient finished her course of doxycycline and reports she continued to have a progressive cough. She was in Dr. Gonzalez 's office for a followup and was referred to the emergency department for further evaluation due to the fact that she was found to be slightly hypoxic and AFib with rapid ventricular response. In the emergency department, she underwent a CAT scan of the chest as well as a chest x-ray, which neither showed any consolidation. She had no leukocytosis, had an elevated CRP of 139. Her D-dimer was less than 200, which ruled out pulmonary embolism. She received 125 mg of Solu-Medrol and was continued on IV Solu-Medrol q.12 hours and titrated down to oral prednisone in which in total she has received a total of a 5-day course of steroids. The patient was not given antibiotics throughout her hospitalization and has slowly improved. She continues to have a harsh cough, but with little sputum production and this cough has improved over the last couple days. She had been maintained on 1.5 L of oxygen via nasal cannula throughout hospitalization, this was titrated off yesterday and today she feels much better and feels ready to go home. She did have a repeat chest x-ray yesterday on 09/20/18, which showed no active cardiopulmonary disease. In regards the patient's AFib with RVR, she was noted to have an increased labile rate going up as high as 130s to 140s. Her metoprolol home dose is 12.5 mg p.o. b.i.d., this was increased to 25 mg p.o. b.i.d. then to 36.5 mg p.o. b.i.d. and has currently found to have better rate control on 50 mg p.o. b.i.d. The heart rate in the 80s and 90s and maintaining systolic blood pressures in the 120s to 140s. The patient did have electrolyte replacement of her magnesium and potassium intermittently throughout hospitalization. She should have a BMP with magnesium checked in 1 week. DISCHARGE PLAN: 1. The patient is to follow up with her primary care provider, Dr. Finn's office next week. She was instructed to call the office Sunday for followup appointments. Please consider repeating a CBC and a BMP with magnesium. 2. Follow up with potato chip packaging machine operator, Dr. Gonzalez within 1 to 3 weeks. 3. The patient appears to have reactive airways reaction to this viral illness. She continues to have some improvement. She may benefit from a referral to change attendant, Dr. Dan. CONDITION AT DISCHARGE: Stable. TIME SPENT: Approximately 60 minutes was spent on this discharge. DOMINICK DONALDSON NP [id number]/CPS #: [id number] MTDD
== END 2018-09-21 12:20 | disposition home or self-care (01) | DRG 866 ==
LOC: ED 15:13 → MEDTELE 21:07
PROVIDERS: ADMIT Pediatrics; ATTEND Internal Medicine
DX: B34.9 Viral infection, unspecified (principal); J98.11 Atelectasis; I48.2 Chronic atrial fibrillation; R06.00 Dyspnea, unspecified; R09.02 Hypoxemia; I25.10 Atherosclerotic heart disease of native coronary artery without angina pectoris; K21.9 Gastro-esophageal reflux disease without esophagitis; J45.909 Unspecified asthma, uncomplicated; E03.9 Hypothyroidism, unspecified; E78.5 Hyperlipidemia, unspecified; E78.00 Pure hypercholesterolemia, unspecified; I10 Essential (primary) hypertension; M54.9 Dorsalgia, unspecified; M48.00 Spinal stenosis, site unspecified; Z95.5 Presence of coronary angioplasty implant and graft; Z79.1 Long term (current) use of non-steroidal anti-inflammatories (NSAID); Z79.899 Other long term (current) drug therapy; Z82.49 Family history of ischemic heart disease and other diseases of the circulatory system; Z79.01 Long term (current) use of anticoagulants
CPT/HCPCS: 36415; 71046; 71260; 80048; 80053; 81003; 81015; 82553; 83605; 83735; 83880; 84443; 84484; 85025; 85379; 86140; 93005; 93306; 94640; 99284; A9270-GY; J0696; J2920; J2930; J3475; J3490; J7512; Q9967

== ENCOUNTER 2018-10-24 23:33 | Emergency (ER) | payer MEDICARE ==
--- OUTSIDE RECORDS SUMMARY | 2018-10-24 23:48 | XMS REPORT | Continuity of Care Document ---
:1930 External Reference #:[id number] Author Name Johnna Fontana Care Team Providers Name Role Phone Corky Finn MD Primary Care Physician Unavailable Payers Date Identification Numbers Payment Provider Subscriber Policy Number: [id number] [employer] Lynette Hess PayID: [id number] [address] [place] [address] Problems Active Problems Provider Date Coronary arteriosclerosis [...] : (age 79 Years) Mother due to [place] Siblings 2 sisters living, CAD, AFib hx Siblings 1 brother passed age 78 [place] Social History Type Date Description Comments Sex Unknown Marital Status Lives With Alone Occupation Retired ETOH Use Never used alcohol Tobacco Use Start: Unknown Patient has never smoked Recreational Drug Use Never Used Drugs Smoking Status Reviewed: 09/30/18 Patient has never smoked Exercise Type/Frequency Does not exercise Allergies, Adverse Reactions, Alerts Active Allergies Reaction Severity Comments Date Codeine itching 10/18/2005 Darvocet itching 08/09/2011 Tape red , itch at site tape worn for long period of 01/09/2014 time per patient Medications Active Medications SIG Qnty Indications Ordering Provider Date Cardizem 1 by mouth 60tabs Shayna S. 09/30/2018 30mg Tablets twice a day Tari Gonzalez Eliquis 1 by mouth 60tabs Shayna S. 02/07/2017 5mg Tablets twice a day Tari Gonzalez Aspirin Low Dose take 1 tab po R06.02 Shayna S. 01/09/2014 81mg daily Tari Gonzalez Tablets Nitroquick 1 S/l prn chest 25tabs Shayna S. 01/04/2006 0.4mg Tablets pain, q 5 min. Tari Gonzalez up to 3 tabs Valium 1 po prn Shayna S. 10/17/2005 5mg Tablets Tari Gonzalez Omeprazole 1 by mouth Unknown 20mg Capsules DR every day Levothyroxine Sodium 1 by mouth Unknown 25mcg every day Tablets Zinc 1 by mouth Unknown 30mg Capsules every day Toprol XL 1/2 tablet by Shayna S. 50mg Tablets ER mouth twice a Tari Gonzalez 24HR day Vitamin C 1 by mouth Unknown 1000mg Tablets every day Benadryl Allergy as needed Unknown 25mg Tablets Biotin 2 tabs daily Unknown 5000mcg Tablets Simvastatin 1 by mouth 90tabs Qutaybeh S. 20mg Tablets every day Tari Gonzalez Fiber Formula 2 cap po daily Unknown Capsules Fish Oil 1 po bid Unknown 1200mg Oil History Medications Meloxicam 1 by mouth 30tabs M48.06 Vaughn Ordoñezcalf, 09/01/2016 - 15mg every day Tari 10/04/2017 Tablets Simvastatin 1 by mouth 90tabs Qutaybeh S. 11/17/2015 - 40mg every day Tari Gonzalez 09/01/2016 Tablets Simvastatin 1 by mouth Qutaybeh S. 09/30/2015 - 40mg every night at Tari Gonzalez 09/30/2015 Tablets bedtime Xarelto 1 by mouth 30tabs Qutaybeh S. 09/30/2014 - 15mg Tablets every day Tari Gonzalez 02/06/2017 Lovenox sc twice a day 10syringe Stormytaybeh S. 09/25/2014 - 60mg/0.6ML Tari Gonzalez 09/27/2015 [...] 08/16/2011 24HR Vytorin 1 po qd 90tabs Qutaybeh [...] 01/04/2006 - 2.5mg Tari Gonzalez 08/28/2006 Tablets Toprol XL 1 PO qd 30tabs Qutaybeh S. 11/29/2005 - 25mg Tari Gonzalez 08/28/2006 Tablets Vytorin 1 po qd 30tabs Qutaybeh S. 11/29/2005 - 10mg;20 mg Tari Gonzalez 01/25/2006 Tablets Aciphex 1 PO qd 30tabs Qutaybeh S. 10/17/2005 - 20mg Tablets Tari Gonzalez 08/28/2006 Advil prn Shayna S. 10/17/2005 - 200mg Tablets Tari Gonzalez 08/09/2011 Lipitor 1 po qd 30tabs Qutaybeh S. 10/17/2005 - 10mg Tablets Tari Gonzalez 11/29/2005 Quinidine Sulfate prn [place] S. 10/17/2005 - Tari Gonzalez 08/27/2008 260mg Tablets Toprol XL 1/2 tablet by 90tabs Qutaybeh S. - 25mg mouth twice a Tari Gonzalez 09/30/2018 Tablets ER 24HR day Prevacid OTC 1 po qd Unknown - [...] pain Vital Signs Date Vital Result Comment 09/30/2018 1:12pm Height 62 inches 5'2" Weight 140.25 lb Clothes/shoes Heart Rate 62 /min radial, regular BP Systolic Sitting 112 mmHg LA, reg cuff BP Diastolic Sitting 76 mmHg LA, reg cuff BP Systolic Standing 108 mmHg LA, reg cuff BP Diastolic Standing 70 mmHg LA, reg cuff BMI (Body Mass Index) 25.6 kg/m2 Ejection Fraction 50-55% Echo 09/17/18 09/16/2018 1:11pm Height 62 inches 5'2" Weight [...] Result H/L Range Note Basic Metabolic 11/12/2015 [facility] Sodium 141 mmol/L N 133- 145 Panel [address] [place] [address] [phone] Potassium 3.6 mmol/L N 3.5-5.0 Chloride 105 mmol/L N 101-111 Co2 Carbon Dioxide 30 mmol/L N 22-32 Anion Gap 6 mmol/L N 2-11 Glucose 104 mg/dL High 70-100 Blood Urea Nitrogen 19 mg/dL N 6-24 Creatinine 1.02 mg/dL High 0.51-0.95 BUN/Creatinine Ratio 18.6 N 8-20 Calcium 9.3 mg/dL N 8.6-10.3 Egfr Non- 51.5 N >60 Egfr 66.2 N >60 1 Laboratory test 10/08/2014 [facility] Digoxin 1.5 ng/ml N 0.8- 2.[address] [place] [address] [phone] CBC No Diff 10/17/2012 [facility] White Blood 8.0 10^3/uL 4.8 -10.[address] [place] [address] [phone] Red Blood Count 4.95 10^6/uL 4.0-5.4 Hemoglobin 14.9 g/dL 12.0-16.0 Hematocrit 46 % 35-47 Mean Corpuscular Volume 92 fL 80-97 Mean Corpuscular Hemoglobin 30 pg 27-31 Mean Corpuscular HGB Conc 33 g/dL 31-36 Red Cell Distribution Width 13 % 10.5-15 Platelet Count 223 10^3/uL 150-450 Mean Platelet Volume 8 um3 7.4-10.4 Basic Metabolic Panel 10/17/2012 [facility] Sodium 141 mmol/L 133-[address] [place], [place] [address] [phone] Potassium 3.6 mmol/L 3.5-5.0 Chloride 109 mmol/L 101-111 Co2 Carbon Dioxide 25.0 mmol/L 22-32 Anion Gap 7.0 mmol/L 2-11 Glucose 131 mg/dL High 70-100 Blood Urea Nitrogen 22 mg/dL 6-24 Creatinine 0.90 mg/dL 0.50-1.40 BUN/Creatinine Ratio 24.4 High 8-20 Calcium 9.6 mg/dL 8.1-9.9 Egfr Non- 59.9 >60 Egfr 77.1 >60 2 Laboratory test 10/17/2012 [facility] TSH (Thyroid 3.34 0.34- 5.[address] Stimulating miu/[place] [address] Horm) [phone] Cath Panel 09/06/2011 [facility] PTT (Aptt) 26.1 SEC 25.1- 38.[address] [place], [place] [id number] [phone] CBC With Manual 09/06/2011 [facility] White Blood 6.7 CUMM 4.8-10.[address] Count [place], [place] [id number] [phone] Red Cell Count 4.27 CUMM 4.2-5.4 Hemoglobin [...] RBC Morphology NORMAL Basic Metabolic Panel 09/06/2011 [facility] Sodium 141 mmol/L 135-145 [address] [place] [address] [phone] Potassium 4.0 mmol/L 3.5-5.0 Chloride 107 mmol/L 101-111 Co2 (Carbon Dioxide) 27.0 mmol/L 22-32 Anion Gap 7.0 mmol/L 2-11 3 Glucose 110 mg/dL High 70-100 BUN 26 mg/dL High 6-24 Creatinine 1.2 mg/dL 0.50-1.40 One Over Creatinine 0.83 BUN/Creatinine Ratio 21.7 High 8-20 Calcium 8.9 mg/dL 8.1-9.9 eGFR Non- 43.1 > 60 eGFR 55.4 > 60 4 Protime 09/06/2011 [facility] Inr 0.87 Low 0.88-1.13 5 [address] [place] [address] [phone] Protime 10.3 SEC 10.3-13.5 6 Lipid Profile 10/06/2010 [facility] Triglyceride 130 mg/dL 40 -200 (Trig/Chol/HDL) [address] [place] [address] [phone] Cholesterol 147 mg/dL Less Than 200 7 High Density Lipoprotein 42 mg/dL 40-60 8 Low Density Lipoprotein 79 mg/dL Less Than 100 9 Cholesterol/HDL Ratio 3.50 AVERAGE 1-4.44 Laboratory test finding 10/06/2010 [facility] Alt (SGPT) 23 U/L 14-54 [address] [place] [address] [phone] Ast (Sgot) 23 U/L 12-42 CPK (Creatine Kinase) 89 U/L 0-170 Lipid Profile 08/18/2010 [facility] Triglyceride 136 mg/dL 40 -200 (Trig/Chol/HDL) [address] [place] [address] [phone] Cholesterol 130 mg/dL Less Than 200 10 High Density Lipoprotein 35 mg/dL Low 40-60 11 Cholesterol/HDL Ratio 3.71 AVERAGE 1-4.44 Low Density Lipoprotein 68 mg/dL Less Than 100 12 Laboratory test finding 08/18/2010 [facility] Ast (Sgot) 28 U/L 12-42 [address] [place] [address] [phone] Alt (SGPT) 27 U/L 14-54 CPK (Creatine Kinase) 149 U/L 0-170 Protime 12/30/2009 [facility] Inr 0.98 0.82-1.17 13 [address] [place] [address] [phone] Protime 11.5 SEC 10.2-14.8 14 Basic Metabolic Panel 12/30/2009 [facility] Sodium 144 mmol/L 135-145 [address] [place] [address] [phone] Potassium 3.9 mmol/L 3.5-5.0 Chloride 108 mmol/L 101-111 Co2 (Carbon Dioxide) 28.0 mmol/L 22-32 Anion Gap 8.0 mmol/L 2-11 15 Glucose 124 mg/dL High 70-100 16 BUN 14 mg/dL 6-24 Creatinine 1.00 mg/dL 0.50-1.40 One Over Creatinine 1.00 BUN/Creatinine Ratio 14.0 8-20 Calcium 8.9 mg/dL 8.1-9.9 eGFR Non- 56.8 > 60 eGFR 68.8 > 60 17 CBC With Manual 12/30/2009 [facility] White Blood 6.7 CUMM 4.8-10.[address] [place] [address] [phone] Red Cell Count 4.19 CUMM Low 4.2-5.4 [...] Neutrophil Count 3.9 Anisocytosis SLIGHT Ovalocytes FEW Cath Panel 12/30/2009 [facility] PTT (Aptt) 28.5 25.15-38.53 [address] [place] [address] [phone] Liver Function 12/16/2009 [facility] Total Protein 6.4 GM/DL 6.2-8.1 Panel [address] [place] [address] [phone] Albumin 3.8 GM/DL 3.2-5.2 Globulin 2.6 GM/DL 2-4 Albumin/Globulin Ratio 1.5 1-3 Bilirubin Total 1.0 mg/dL 0.4-1.5 18 Bilirubin Direct 0.1 mg/dL 0.1-0.5 Indirect Bilirubin 0.9 mg/dL 0.3-1.0 19 Alkaline Phosphatase 74 U/L 30-110 Alt (SGPT) 22 U/L 14-54 Ast (Sgot) 23 U/L 12-42 Basic Metabolic Panel 12/16/2009 [facility] Sodium 143 mmol/L 135-145 [address] [place] [address] [phone] Potassium 4.4 mmol/L 3.5-5.0 Chloride 109 mmol/L 101-111 Co2 (Carbon Dioxide) 28.0 mmol/L 22-32 Anion Gap 6.0 mmol/L 2-11 20 Glucose 91 mg/dL 70-100 21 BUN 15 mg/dL 6-24 Creatinine 1.10 mg/dL 0.50-1.40 One Over Creatinine 0.90 BUN/Creatinine Ratio 13.6 8-20 Calcium 9.2 mg/dL 8.1-9.9 eGFR Non- 50.9 > 60 eGFR 61.6 > 60 22 Laboratory test 12/16/2009 [facility] Thyroxine Free 0.60 NG/ML Low 0.61-1.[address] [place] [address] [phone] T3 Total 0.97 NG/ML 0.5-1.7 TSH 2.84 MIU/ML 0.34-5.60 Rheumatoid Factor < 20.0 IU/mL Less Than 20 CBC With 12/16/2009 [facility] White Blood 8.4 CUMM 4.8-10.8 Electronic Diff [address] [place] [address] [phone] Red Cell Count 4.15 CUMM Low 4.2-5.4 [...] Abs Basophils 0.1 0-0.2 Laboratory test 12/16/2009 [facility] Erythrocyte Sed 5 MM/HR 0-[address] [place] [address] [phone] Syphilis IgG NON-REACTIVE Nonreactive 23 [place] 12/16/2009 [facility] Antinuclear POSITIVE Abnormal Negative (Antinuclear [address] AB Antibodies) [place] [address] [phone] [place] Pattern NUCLEOLAR Abnormal Antinuclear AB 1:80 Abnormal Reviewed By (SEE NOTE) 24 Laboratory test 12/16/2009 [facility] Fta-Abs Igg In Non Reactive () [address] [place] [address] [phone] Complement C3 154 mg/dL 75-175 26 Complement C4 27 mg/dL 14-40 27 Lyme Disease Serology Negative Negative 28 Ssa/SSB 12/16/2009 [facility] Ssa NEGATIVE Negative [address] [place] [address] [phone] SSB NEGATIVE Negative 1 Because ethnic data is not always [...] change was based on recommendations from the [place] [employer]. 17 Because ethnic data is [...] 5 Kidney failure <15 (or dialysis) 18 A metabolite of Naproxen, O-desmethylnaproxen, has [...] change was based on recommendations from the [place] [employer]. 22 Because ethnic data is [...] REFERENCE VALUE -- Non Reactive Test Performed By:[facility] [address] [place] [id number] -- REFERENCE VALUE -- Non Reactive 26 Test Performed by: [facility] [address] [place] [address] [place] Performer: Quinton Guerra III, M.D. 27 Test Performed by: [facility] [address] [place] [address] [place] Performer: Quinton Guerra III, M.D. 28 Serologic response to B. burgdorferi infection is not detected, but cannot rule out early infection during which low or undetectable antibody levels to B. burgdorferi may be present. If clinically indicated, a new serum specimen should be submitted in 7-14 days. Test Performed by: [facility] [address] [place] [address] [place]o Performer: Quinton Guerra III, M.D. Procedures Date Code Description Status 09/30/2018 53589 EKG Tracing & Interpretation Completed 09/17/2018 35464 ECHO Transthorasic Realtime 2D W Doppler & Color Flow Hosp Completed 09/16/2018 60031 EKG Tracing & Interpretation Completed 10/05/2017 95411 EKG Tracing & Interpretation Completed 10/23/2016 43926 ECHO Transthoracic, Real-Time 2D With Doppler And Color Completed Flow 09/22/2016 56226 EKG Tracing & Interpretation Completed 09/28/2015 95612 EKG Tracing & Interpretation Completed 09/01/2014 32287 EKG Tracing & Interpretation Completed 01/09/2014 37006 EKG Tracing & Interpretation Completed 12/30/2013 14926 Laparoscopy Cholecystectomy Completed 12/29/2013 10736 ECHO Transthorasic Realtime 2D W Doppler & Color Flow Hosp Completed 12/28/2013 51657 EKG, Interpretation Only Completed 12/28/2013 28698 Stress Test Supervsn W/Out I/R Completed 12/28/2013 71305 Treadmill Interp/Report Only Completed 12/24/2013 73545 Holter Monitor Review (24 hr)dr review & interp only Completed 12/22/2013 68520 EKG Tracing & Interpretation Completed 12/17/2012 71818 Holter Monitoring 24 HR New Completed 10/22/2012 35466 EKG Tracing & Interpretation Completed 10/17/2012 69320 Color Flow Doppler/Interp & Reprt Completed 10/17/2012 67457 Pulse Wave/Continuous-Interp.RPT Completed 10/17/2012 86695 Echocardiography, Transesophageal, Real Time W/Image 2D Completed W/W/O M-M 10/17/2012 87769 Treadmill Interp/Report Only Completed 10/17/2012 54105 Stress Test Supervsn W/Out I/R Completed 10/17/2012 79182 EKG, Interpretation Only Completed 10/17/2012 25807 Cardioversion Completed 10/03/2012 87593 ECHO Transthoracic, Real-Time 2D With Doppler And Color Completed Flow 10/02/2012 21390 Holter Monitoring 24 HR New Completed 09/11/2012 57296 EKG Tracing & Interpretation Completed 09/12/2011 21274 Left Heart Cath. Incl S/I Coronaries, Angio S/I V Gram If Completed Done 09/12/2011 40599 Cath PLMT&NJX L Ventriculog Img S&I Completed 09/12/2011 67092 Left Health Catheterization W/Inj For Left Completed Ventriculography,S&I 08/24/2011 87946 Treadmill Interp/Report Only Completed 08/24/2011 36856 Stress Test Supervsn W/Out I/R Completed 08/09/2011 64958 ECHO Transthoracic, Real-Time 2D With Doppler And Color Completed Flow 10/07/2010 15943 EKG Tracing & Interpretation Completed 12/31/2009 96253 Left Heart Catheterization Completed 12/31/2009 27577 Inj Proc LFT Vent/LFT Atrl Angio Completed 12/31/2009 63954 Coronary Angiography Completed 12/31/2009 72923 S/I/R Inj Proc Vent And Or Atrial Completed 12/31/2009 67403 Selective Coronary Angioplasty Completed 12/30/2009 38795 ECHO Stress Test Incl Perf Contiuous ekg Monitoring W/Phys Completed Superv 12/30/2009 30075 EKG Tracing & Interpretation Completed 12/28/2009 11073 ECHO Transthoracic, Real-Time 2D With Doppler And Color Completed Flow 09/09/2009 45719 EKG Tracing & Interpretation Completed 10/21/2008 09224 ECHO Transthoracic, Real-Time 2D With Doppler And Color Completed Flow 08/27/2008 22237 EKG Tracing & Interpretation Completed 12/24/2007 93680 Stress Test Completed 12/24/2007 38059 Stress Test Completed 12/24/2007 32889 Stress Test Completed 12/24/2007 01317 Echocardiogram Completed 12/24/2007 64453 Echocardiogram Completed 12/24/2007 41051 Echocardiogram Completed 12/24/2007 86714 Pulse Doppler & Continuous Wave Completed 12/24/2007 99203 Pulse Doppler & Continuous Wave Completed 12/24/2007 21212 Pulse Doppler & Continuous Wave Completed 12/24/2007 59466 Color Doppler Completed 12/24/2007 66430 Color Doppler Completed 12/24/2007 91472 Color Doppler Completed 12/24/2007 12546 ECHO/Stress Completed 12/24/2007 14009 ECHO/Stress Completed 08/14/2007 85706 EKG Tracing & Interpretation Completed 01/16/2007 80323 EKG Tracing & Interpretation Completed 01/16/2007 06751 Echocardiogram Completed 01/16/2007 51352 Echocardiogram Completed 01/16/2007 28550 Pulse Doppler & Continuous Wave Completed 01/16/2007 60793 Pulse Doppler & Continuous Wave Completed 01/16/2007 66537 Pulse Doppler & Continuous Wave Completed 01/16/2007 81616 Color Doppler Completed 01/16/2007 22985 Color Doppler Completed 01/10/2007 82345 ECHO/Stress Completed 01/10/2007 57081 Stress Test Completed 01/10/2007 02118 Stress Test Completed 08/28/2006 63309 EKG Tracing & Interpretation Completed 02/23/2006 38482 Left Heart Catheterization Completed 02/23/2006 82314 Coronary Angiography Completed 02/23/2006 02279 Coronary Angiography Completed 02/23/2006 57566 Selective Coronary Angioplasty Completed 02/19/2006 54334 EKG Tracing & Interpretation Completed 01/25/2006 17382 EKG Tracing & Interpretation Completed 12/29/2005 43757 EKG, Interpretation Only Completed 12/29/2005 16493 EKG, Interpretation Only Completed 12/29/2005 83559 Com RT And LT Catheterization Completed 12/29/2005 75694 Inj Proc LFT Vent/LFT Atrl Angio Completed 12/29/2005 41624 Inj Proc LFT Vent/LFT Atrl Angio Completed 12/29/2005 05553 Coronary Angiography Completed 12/29/2005 79195 S/I/R Inj Proc Vent And Or Atrial Completed 12/29/2005 06412 S/I/R Inj Proc Vent And Or Atrial Completed 12/29/2005 89842 Selective Coronary Angioplasty Completed 10/27/2005 66654 Stress ECHO Interpretation/Report Hospital Completed 10/27/2005 22918 Stress ECHO Interpretation/Report Hospital Completed 10/27/2005 48872 Treadmill Interp/Report Only Completed 10/27/2005 90201 Stress Test Supervsn W/Out I/R Completed 10/27/2005 54618 Stress Test Supervsn W/Out I/R Completed 10/25/2005 79401 Color Doppler Completed 10/25/2005 73689 Pulse Doppler & Continuous Wave Completed 10/25/2005 74828 Pulse Doppler & Continuous Wave Completed 10/25/2005 83144 Echocardiogram Completed 10/18/2005 55378 EKG Tracing & Interpretation Completed Encounters Type Date Location Provider Dx Diagnosis Office Visit 09/20/2018 [facility] Pérez, I48.0 Paroxysmal atrial 10:28a Assoc,levi [employer] fibrillation Hospitalists R05 Cough K21.9 Gastro-esophageal reflux disease without esophagitis I25.10 [facility] heart disease [place] coronary artery w/o ang pctrs E78.5 Hyperlipidemia, unspecified I10 Essential (primary) hypertension E03.9 Hypothyroidism, unspecified Office Visit 09/19/2018 [facility] I48.0 Paroxysmal atrial 10:27a Assoc,levi Pérez NP fibrillation Hospitalists R05 Cough K21.9 Gastro-esophageal reflux disease without esophagitis I25.10 [place]scl heart disease [place] coronary artery w/o ang pctrs E78.5 Hyperlipidemia, unspecified I10 Essential (primary) hypertension E03.9 Hypothyroidism, unspecified Office Visit 09/18/2018 10:27a [facility] Lidia Gina, I48.0 Paroxysmal atrial Assoc,levi [employer] fibrillation Hospitalists R05 Cough I25.10 Athscl heart disease [place] coronary artery w/o ang pctrs E78.5 Hyperlipidemia, unspecified K21.9 Gastro-esophageal reflux disease without esophagitis E03.9 Hypothyroidism, unspecified Office Visit 09/17/2018 10:27a [facility] Lidia Gina, I48.0 Paroxysmal atrial Assoc,pc [employer] fibrillation Hospitalists R05 Cough I25.10 Athscl heart disease [place] coronary artery w/o ang pctrs E78.5 Hyperlipidemia, unspecified E03.9 Hypothyroidism, unspecified Office Visit 09/16/2018 10:27a [facility] Genesis R06.02 Shortness of Assoc,pc Paula Doto, breath Hospitalists [employer] R09.02 Hypoxemia I48.0 Paroxysmal atrial fibrillation I25.10 Athscl heart disease [place] coronary artery w/o ang pctrs G89.4 Chronic pain syndrome Office Visit 09/16/2018 [facility] Qutaybeh S. I48.2 Chronic atrial 1:40p Cardiology Tari Gonzalez fibrillation I25.10 Athscl heart disease [place] coronary artery w/o ang pctrs I10 Essential (primary) hypertension I71.9 Aortic aneurysm of unspecified site, without rupture I34.0 Nonrheumatic mitral (valve) insufficiency R06.02 Shortness of breath R94.31 Abnormal electrocardiogram [ECG] [EKG] Office Visit 10/05/2017 [facility] Qutaybeh S. I48.2 Chronic atrial 2:20p Elias Gonzalez M.D. fibrillation I25.10 Athscl heart disease [place] coronary artery w/o ang pctrs I10 Essential (primary) hypertension I71.9 Aortic aneurysm of unspecified site, without rupture I34.0 Nonrheumatic mitral (valve) insufficiency Office Visit 09/22/2016 Artemio Qukimybeh S. I48.2 Chronic atrial 1:40p Elias Gonzalez M.D. fibrillation I25.10 Athscl heart disease [place] coronary artery w/o ang pctrs I10 Essential (primary) hypertension R06.02 Shortness of breath Office Visit 09/01/2016 11:20a Neurosurgery Vaughn Motta, M48.06 [facility] Tari stenosis, lumbar region M51.36 Other intervertebral disc degeneration, lumbar region Office Visit 09/28/2015 [facility] Shayna S. I48.2 Chronic atrial 11:20a Cardiology Tari Gonzalez fibrillation I25.10 Athscl heart disease [place] coronary artery w/o ang pctrs I10 Essential (primary) hypertension I25.9 Chronic ischemic heart disease, unspecified Office Visit 09/01/2014 [facility] Shayna S. 427.31 Atrial 10:40a Cardiology Tari Gonzalez Fibrillation 414.01 Coronary Atherosclerosis [place] 401.1 Hypertension Benign Office Visit 01/09/2014 9:30a [facility] Rachel Quinteros, 427.31 Atrial Of Fabrication Engineer MAGGIE Fibrillation 786.05 Shortness Of Breath 414.01 Coronary Atherosclerosis [place] 401.1 Hypertension Benign Office Visit 01/02/2014 [facility] 575.10 Cholecystitis 9:23p Assoclevi D.O. Unspec Hospitalists 427.31 Atrial Fibrillation 401.9 Hypertension Unspec 414.9 Ischemic Heart Disease Chronic Unspec [facility]10 Cholecystitis 9:23p Assoclevi D.O. Unspec Hospitalists 427.31 Atrial Fibrillation 401.9 Hypertension Unspec 414.9 Ischemic Heart Disease Chronic Unspec [facility].10 Cholecystitis 9:22p Asslevi hills D.O. Unspec Hospitalists 427.31 Atrial Fibrillation 401.9 Hypertension Unspec 414.9 Ischemic Heart Disease Chronic Unspec Office Visit 12/30/2013 [facility] Gregorio 575.10 Cholecystitis 12:05p levi Moon M.D. Unspec Hospitalists 427.31 Atrial Fibrillation 414.9 Ischemic Heart Disease Chronic Unspec 401.9 Hypertension Unspec Office Visit 12/29/2013 [facility] Lorena 575.10 Cholecystitis 9:22p Asslevi hills M.D. Unspec Hospitalists 427.31 Atrial Fibrillation 401.9 Hypertension Unspec 414.9 Ischemic Heart Disease Chronic Unspec Office Visit 12/29/2013 [facility] Keith Weber 427.31 Atrial 12:44p Of Vianca Slaughter M.D. Fibrillation [facility] Cholecystitis 9:21p Asslevi hills M.D. Unspec Hospitalists 427.31 Atrial Fibrillation 401.9 Hypertension Unspec 414.9 Ischemic Heart Disease Chronic Unspec Office Visit 12/28/2013 10:09a Artemio Galvan 427.31 Atrial Cardiology Tari Mccabe Fibrillation 414.8 Ischemic Heart Disease Chronic Other Spec Forms [facility] 575.10 Cholecystitis 9:18p Assoc,levi Rosales M.D. Unspec Hospitalists 427.31 Atrial Fibrillation 401.9 Hypertension Unspec 414.9 Ischemic Heart Disease Chronic Unspec Office Visit 12/27/2013 9:42a Artemio Galvan 427.31 Atrial Cardiology Tari Mccabe Fibrillation 414.9 Ischemic Heart Disease Chronic Unspec Office Visit 12/22/2013 [facility] Qutaybeh S. 427.31 Atrial 2:40p Elias Gonzalez M.D. Fibrillation 794.31 Electrocardiogram (ECG) (EKG) Abnormal 786.05 Shortness Of Breath 414.01 Coronary Atherosclerosis [place] 401.1 Hypertension Benign V45.82 Percutaneous Transluminal Coronary Angioplas Postsurg Status Office 10/22/2012 Artemio Qutaybeh S. 794.31 Electrocardiogram Visit 10:00a Elias Gonzalez M.D. (ECG) (EKG) Abnormal 786.05 Shortness Of Breath 427.31 Atrial Fibrillation 427.69 Premature Beats Other 414.01 Coronary Atherosclerosis [place] 401.1 Hypertension Benign V45.82 Percutaneous Transluminal Coronary Angioplas Postsurg Status Office Visit 10/17/2012 11:30a [facility] Qutaybeh S. 786.50 Pain Chest Tari Gonzalez Unspec 794.31 Electrocardiogram (ECG) (EKG) Abnormal 427.69 Premature Beats Other 786.05 Shortness Of Breath 414.01 Coronary Atherosclerosis [place] 427.31 Atrial Fibrillation Office Visit 09/11/2012 Artemio Qualejandraeh S. 414.01 Coronary 2:20p Elias Gonzalez M.D. Atherosclerosis [place] 401.1 Hypertension Benign V45.82 Percutaneous Transluminal Coronary Angioplas Postsurg Status 272.4 Hyperlipidemia Other Unspec 794.31 Electrocardiogram (ECG) (EKG) Abnormal 427.69 Premature Beats Other 786.05 Shortness Of Breath 786.50 Pain Chest Unspec Office Visit 09/20/2011 2:40p [facility] Qutaybeh S. 786.50 Pain Chest AT [facility] Tari Gonzalez Unspec 414.01 Coronary Atherosclerosis [place] 401.1 Hypertension Benign V45.82 Percutaneous Transluminal Coronary Angioplas Postsurg Status 272.4 Hyperlipidemia Other Unspec Office Visit 09/12/2011 11:30a [facility] Qutaybeh S. 786.50 Pain Chest Tari Gonzalez Unspec 414.01 Coronary Atherosclerosis [place] 401.1 Hypertension Benign 786.05 Shortness Of Breath Office Visit 08/30/2011 3:20p [facility] Qutaybeh S. 786.50 Pain Chest AT [facility] Tari Gonzalez Unspec 786.05 Shortness Of Breath 414.01 Coronary Atherosclerosis [place] 401.1 Hypertension Benign V45.82 Percutaneous Transluminal Coronary Angioplas Postsurg Status 272.4 Hyperlipidemia Other Unspec Office 08/24/2011 [facility] Qutaybeh S. 794.31 Electrocardiogram Visit 9:30a Elias Gonzalez M.D. (ECG) (EKG) Abnormal 786.50 Pain Chest Unspec 786.05 Shortness Of Breath 414.01 Coronary Atherosclerosis [place] 401.1 Hypertension Benign V45.82 Percutaneous Transluminal Coronary Angioplas Postsurg Status Office Visit 08/16/2011 [facility] Zeynep 414.01 Coronary 11:30a Cardiology Devan, N.PGerald Atherosclerosis [place] 401.1 Hypertension Benign Office Visit 08/09/2011 [facility] Zeynep 414.01 Coronary 3:00p Cardiology Devan, N.PGerald Atherosclerosis [place] 401.1 Hypertension Benign 272.4 Hyperlipidemia Other Unspec Office Visit 10/07/2010 [facility] Qukimybeh S. 414.01 Coronary 10:40a Elias Gonzalez M.D. Atherosclerosis [place] 401.1 Hypertension Benign V45.82 Percutaneous Transluminal Coronary Angioplas Postsurg Status 272.4 Hyperlipidemia Other Unspec Office Visit 01/06/2010 [facility] Qukimybeh S. 414.01 Coronary 3:20p Elias Gonzalez M.D. Atherosclerosis [place] 786.05 Shortness Of Breath 401.1 Hypertension Benign Office Visit 12/30/2009 [facility] Qutaybeh S. 414.01 Coronary 8:30a Elias Gonzalez M.D. Atherosclerosis [place] V45.82 Percutaneous Transluminal Coronary Angioplas Postsurg Status 401.1 Hypertension Benign Office Visit 09/09/2009 [facility] Qutaybeh S. 414.01 Coronary 11:10a Elias Gonzalez M.D. Atherosclerosis [place] V45.82 Percutaneous Transluminal Coronary Angioplas Postsurg Status 401.1 Hypertension Benign 272.4 Hyperlipidemia Other Unspec Office Visit 08/27/2008 [facility] Qutaybeh S. 414.01 Coronary 1:20p Elias Gonzalez M.D. Atherosclerosis [place] V45.82 Percutaneous Transluminal Coronary Angioplas Postsurg Status 401.1 Hypertension Benign 272.4 Hyperlipidemia Other Unspec 786.50 Pain Chest Unspec Office Visit 01/09/2008 [facility] Qutaybeh S. 414.01 Coronary 8:40a Elias Gonzalez M.D. Atherosclerosis [place] V45.82 Percutaneous Transluminal Coronary Angioplas Postsurg Status 401.1 Hypertension Benign 786.05 Shortness Of Breath 272.4 Hyperlipidemia Other Unspec Office Visit 08/14/2007 [facility] Qutaybeh S. 414.01 Coronary 11:20a Elias Gonzalez M.D. Atherosclerosis [place] V45.82 Percutaneous Transluminal Coronary Angioplas Postsurg Status 401.1 Hypertension Benign 272.4 Hyperlipidemia Other Unspec 786.50 Pain Chest Unspec 786.05 Shortness Of Breath Office Visit 01/16/2007 [facility] Qutaybeh S. 414.01 Coronary 11:30a Elias Gonzalez M.D. Atherosclerosis [place] V45.82 Percutaneous Transluminal Coronary Angioplas Postsurg Status 401.1 Hypertension Benign 794.31 Electrocardiogram (ECG) (EKG) Abnormal 786.50 Pain Chest Unspec 272.4 Hyperlipidemia Other Unspec Office Visit 08/28/2006 [facility] Qutaybeh S. 414.01 Coronary 2:20p Elias Gonzalez M.D. Atherosclerosis [place] 401.1 Hypertension Benign 272.4 Hyperlipidemia Other Unspec V45.82 Percutaneous Transluminal Coronary Angioplas Postsurg Status Office Visit 02/28/2006 [facility] Qutaybeh S. 414.01 Coronary 9:20a Elias Gonzalez M.D. Atherosclerosis [place] V45.82 Percutaneous Transluminal Coronary Angioplas Postsurg Status 272.4 Hyperlipidemia Other Unspec Office Visit 02/19/2006 10:40a [facility] Elias Corral S. 786.50 Pain Chest Tari Gonzalez Unspec 414.01 Coronary Atherosclerosis [place] 401.0 Hypertension Malignant 272.4 Hyperlipidemia Other Unspec Office Visit 01/25/2006 Artemio Reeves 414.01 Coronary 2:00p Cardiology Tari Gonzalez Atherosclerosis [place] V45.82 Percutaneous Transluminal Coronary Angioplas Postsurg Status Office Visit 01/04/2006 Artemio Reeves 414.01 Coronary 3:00p Cardiology Tari Gonzalez Atherosclerosis [place] 401.1 Hypertension Benign Office Visit 11/29/2005 2:40p [facility] Shayna Reeves 786.05 Shortness Of Tari Gonzalez Breath 427.69 Premature Beats Other 401.1 Hypertension Benign 794.30 Cardiovascular Function Study Unspec Abnormal Office 10/18/2005 Artemio Reeves 794.31 Electrocardiogram Visit 2:40p Cardiology Tari Gonzalez (ECG) (EKG) Abnormal 786.05 Shortness Of Breath 272.4 Hyperlipidemia Other Unspec 401.0 Hypertension Malignant Plan of Treatment Future Appointment(s):10/14/2018 2:30 pm - Nurse Visit cc at [facility]10/08/2018 10:30 am - [facility]10/07/2018 12 :00 pm - [facility]09/30/2018 - Shayna Gonzalez M.D.I48.0 Paroxysmal atrial fibrillationFollow up:one week nurse ekg and BP [id number] Atherosclerotic heart disease [place] coronary artery withFollow up:9 months ovE78.5 Hyperlipidemia, [id number] Essential (primary) hypertension
[2018-10-25] MEDS ORDERED: NS 0.9% 1000 ML** 1,000 ML IV ONE (01:20)
[2018-10-25] MEDS ORDERED: Ondansetron INJ* 2 MG/ML VIAL IV ONE (01:21)
[2018-10-25] MEDS ORDERED: Morphine 4 MG/ML VIAL (1 ml) 4 MG/ML VIAL IV ONE ×2 (01:21→03:37)
[2018-10-25 01:42] LABS: ABS Basophils 0.1 10^3/ul (0-0.2); ABS Eosinophils 0.3 10^3/ul (0-0.6); ABS Lymphocytes 3.3 10^3/ul (1.0-4.8); ABS Monocytes 0.6 10^3/ul (0-0.8); ABS Neutrophils 3.8 10^3/ul (1.5-7.7); Eosinophil % 3.8 %; Hematocrit 37 % (35-47); Hemoglobin 12.4 g/dL (12.0-16.0); Lymphocyte % 40.6 %; Mean Corpuscular HGB Conc 34 g/dL (31-36); Mean Corpuscular Hemoglobin 32 pg (27-31); Mean Corpuscular Volume 93 fL (80-97); Mean Platelet Volume 6.8 fL (7.4-10.4); Nucleated Red Blood Cells % 0.1; Platelet Count 274 10^3/uL (150-450); Red Blood Count 3.92 10^6 /uL (3.70-4.87); Red Cell Distribution Width 12 % (10-15); White Blood Count 8.1 10^3/uL (3.5-10.8)
[2018-10-25 01:51] LABS: Activated Partial Thrombo Time 38.7 seconds (26.0-38.0); INR 1.65 (0.82-1.09)
[2018-10-25 02:00] LABS: Albumin 3.7 g/dL (3.2-5.2); Albumin/Globulin Ratio 1.4 (1-3); BUN/Creatinine Ratio 13.2 (8-20); C Reactive Protein 5.62 mg/L (<8.01); Calcium 9.2 mg/dL (8.6-10.3); EGFR African American 54.4 (>60); Globulin 2.7 g/dL (2-4); Magnesium 1.6 mg/dL (1.9-2.7); Potassium 3.9 mmol/L (3.5-5.0); Total Bilirubin 0.5 mg/dL (0.2-1.0); Total Protein 6.4 g/dL (6.4-8.9)
[2018-10-25] MEDS ORDERED: diPHENhydraMINE IV* 50 MG/ML 1 ml VIAL (BENADRYL) IV ONE (02:03)
[2018-10-25 03:00] LABS: Urine Appearance Cloudy; Urine Bacteria Absent (Absent); Urine Bilirubin Negative (Negative); Urine Blood 3+ (Negative); Urine Glucose Negative (Negative); Urine Ketones Negative (Negative); Urine Nitrite Negative (Negative); Urine Protein 1+(30 mg/dL) (Negative); Urine Red Blood Cell 3+(>10/hpf) (Absent); Urine Specific Gravity 1.005 (1.010-1.030); Urine Squamous Epithelial Cell Present (Absent); Urine Urobilinogen Negative (Negative); Urine White Blood Cell 3+(>20/hpf) (Absent)
[2018-10-25] MEDS ORDERED: Levofloxacin TAB* 500 MG PO ONE (03:01)
[2018-10-25 03:18] LABS: Urine Color Red
--- NOTE | 2018-10-25 03:35 | ED ---
Abdominal Pain/Female - HPI Summary HPI Summary: This patient is a 88 year old F presenting to [facility] accompanied by a female small arms artillery repairer with a chief complaint of right flank pain since this afternoon. Pt states she has been vomiting all day. Pt reports hematuria. She notes she was on medication for UTI. The patient rates the pain 8/10 in severity. Symptoms aggravated by nothing. Symptoms alleviated by nothing. - History of Current Complaint Chief Complaint: EDFlankPain Stated Complaint: ABD PAIN,VOMITING PER PT Time Seen by Provider: 10/25/18 00:52 Hx Obtained From: Patient ?: No Onset/Duration: Sudden Onset, Lasting Hours - since this afternoon Timing: Hours - since this afternoon Severity Initially: Severe Severity Currently: Severe Pain Intensity: 8 Pain Scale Used: 0-10 Numeric Aggravating Factor(s): Nothing Alleviating Factor(s): Nothing Associated Signs and Symptoms: Positive: Vomiting, Other: - positive - right flank pain, hematuria Allergies/Adverse Reactions: Allergies Allergy/AdvReac Type Severity Reaction Status Date / Time NARCOTICS AdvReac ITCHING Uncoded 10/24/18 23:42 WITH MOST PAIN MEDS PMH/Surg Hx/FS Hx/Imm Hx Previously Healthy: No Endocrine/Hematology History: Reports: Hx Thyroid Disease - HYPO, Hx Anemia Denies: Hx Diabetes Cardiovascular History: Reports: Hx Coronary Artery Disease - ONE CORONARY STENT SINCE 2005, Hx Hypercholesterolemia, Hx Hypertension, Other Cardiovascular Problems/Disorders - HX A FIB Denies: Hx Angina, Hx Myocardial Infarction, Hx Pacemaker/ICD, Hx Valvular Heart Disease Respiratory History: Denies: Hx Asthma, Hx Chronic Obstructive Pulmonary Disease (COPD), Other Respiratory Problems/Disorders GI History: Reports: Hx Gastroesophageal Reflux Disease Denies: Other GI Disorders History: Reports: Hx Kidney Stones - BILATERAL Denies: Hx Renal Disease - KIDNEY STONES, Other Problems/Disorders Musculoskeletal History: Reports: Hx Arthritis, Hx Back Problems Denies: Other Musculoskeletal History Sensory History: Reports: Hx Cataracts - EZEKIEL, Hx Contacts or Glasses - GLASSES, Hx Glaucoma Denies: Hx Hearing Aid Opthamlomology History: Reports: Hx Cataracts - EZEKIEL, Hx Contacts or Glasses - GLASSES, Hx Glaucoma Neurological History: Reports: Hx Migraine Denies: Other Neuro Impairments/Disorders Psychiatric History: Denies: Hx Panic Disorder - Cancer History Hx Chemotherapy: No - Surgical History Surgical History: Yes Surgery Procedure, Year, and Place: 12/2014, GALLBLADDER, [facility] HEART STENT 12/2005 [facility]. HYSTERECTOMY, [facility] BILATERAL BUNIONECTOMY-1981. TONSILECTOMY, AGE 30. APPENDECTOMY, AGE 12. RIGHT SHOULDER 1994, [facility] Hx Anesthesia Reactions: No Infectious Disease History: No Infectious Disease History: Denies: Traveled Outside the [place] in Last 30 Days - Family History Known Family History: Positive: Hypertension - Social History Alcohol Use: None Hx Substance Use: No Substance Use Type: Reports: None Hx Tobacco Use: No Smoking Status (MU): Never Smoked Tobacco Do You Chew or Dip Tobacco: No Have You Chewed or Dipped Tobacco in the LAST YEAR: No Have You Smoked in the Last Year: No Review of Systems Positive: Vomiting Positive: hematuria Musculoskeletal: Other - positive - right flank pain All Other Systems Reviewed And Are Negative: Yes Physical Exam - Summary Physical Exam Summary: VITAL SIGNS: Reviewed. GENERAL: Patient is a well-developed and nourished FEMALE who is lying comfortable in the stretcher. Patient is not in any acute respiratory distress. HEAD AND FACE: No signs of trauma. No ecchymosis, hematomas or skull depressions. No sinus tenderness. EYES: PERRLA, EOMI x 2, No injected conjunctiva, no nystagmus. EARS: Hearing grossly intact. Ear canals and tympanic membranes are within normal limits. MOUTH: Oropharynx within normal limits. NECK: Supple, trachea is midline, no adenopathy, no JVD, no carotid bruit, no c- spine tenderness, neck with full ROM CHEST: Symmetric, no tenderness at palpation LUNGS: Clear to auscultation bilaterally. No wheezing or crackles. CVS: Regular rate and rhythm, S1 and S2 present, no murmurs or gallops appreciated. ABDOMEN: Soft, right lower ABD tenderness. No signs of distention. No rebound no guarding, and no masses palpated. Bowel sounds are normal. EXTREMITIES: FROM in all major joints, no edema, no cyanosis or clubbing. NEURO: Alert and oriented x 3. No acute neurological deficits. Speech is normal and follows commands. SKIN: Dry and warm Triage Information Reviewed: Yes Vital Signs On Initial Exam: Initial Vitals Temp Pulse Resp BP Pulse Ox 97.3 F 80 16 133/94 96 10/24/18 23:35 10/24/18 23:35 10/24/18 23:35 10/24/18 23:35 10/24/18 23:35 Vital Signs Reviewed: Yes Diagnostics - Vital Signs Vital Signs Temp Pulse Resp BP Pulse Ox 10/25/18 02:13 18 10/24/18 23:35 97.3 F 80 16 133/94 96 - Laboratory Lab Results: Lab Results 10/25/18 10/25/18 10/25/18 Range/Units 01:32 01:32 01:32 WBC 8.1 (3.5-10.8) 10^3/uL RBC 3.92 (3.70-4.87) 10^6 /uL Hgb 12.4 (12.0-16.0) g/dL Hct 37 (35-47) % MCV 93 (80-97) fL MCH 32 H (27-31) pg MCHC 34 (31-36) g/dL RDW 12 (10-15) % Plt Count 274 (150-450) 10^3/uL MPV 6.8 L (7.4-10.4) fL Neut % (Auto) 47.4 % Lymph % (Auto) 40.6 % Hart % (Auto) 7.1 % Eos % (Auto) 3.8 % Baso % (Auto) 1.1 % Absolute Neuts (auto) 3.8 (1.5-7.7) 10^3/ul Absolute Lymphs (auto) 3.3 (1.0-4.8) 10^3/ul Absolute Monos (auto) 0.6 (0-0.8) 10^3/ul Absolute Eos (auto) 0.3 (0-0.6) 10^3/ul Absolute Basos (auto) 0.1 (0-0.2) 10^3/ul Absolute Nucleated RBC 0.0 10^3/ul Nucleated RBC % 0.1 INR (Anticoag Therapy) 1.65 H (0.82-1.09) APTT 38.7 H (26.0-38.0) seconds Sodium 137 (135-145) mmol/L Potassium 3.9 (3.5-5.0) mmol/L Chloride 105 (101-111) mmol/L Carbon Dioxide 25 (22-32) mmol/L Anion Gap 7 (2-11) mmol/L BUN 15 (6-24) mg/dL Creatinine 1.14 H (0.51-0.95) mg/dL Est GFR ( Amer) 54.4 (>60) Est GFR (Non-Af Amer) 45.0 (>60) BUN/Creatinine Ratio 13.2 (8-20) Glucose 100 (70-100) mg/dL Calcium 9.2 (8.6-10.3) mg/dL Magnesium 1.6 L (1.9-2.7) mg/dL Total Bilirubin 0.50 (0.2-1.0) mg/dL AST 19 (13-39) U/L ALT 15 (7-52) U/L Alkaline Phosphatase 102 (34-104) U/L C-Reactive Protein 5.62 (<8.01) mg/L Total Protein 6.4 (6.4-8.9) g/dL Albumin 3.7 (3.2-5.2) g/dL Globulin 2.7 (2-4) g/dL Albumin/Globulin Ratio 1.4 (1-3) Amylase 30 (29-103) U/L Lipase 10 L (11.0-82.0) U/L Urine Color Urine Appearance Urine pH (5-9) Ur Specific [place] (1.010-1.030) Urine Protein (Negative) Urine Ketones (Negative) Urine Blood (Negative) Urine Nitrate (Negative) Urine Bilirubin (Negative) Urine Urobilinogen (Negative) Ur Leukocyte Esterase (Negative) Urine WBC (Auto) (Absent) Urine RBC (Auto) (Absent) Ur Squamous Epith Cells (Absent) Urine Bacteria (Absent) Urine Yeast (Absent) Urine Glucose (Negative) Urine Ascorbic Acid (Negative) 10/25/18 Range/Units 02:02 WBC (3.5-10.8) 10^3/uL RBC (3.70-4.87) 10^6 /uL Hgb (12.0-16.0) g/dL Hct (35-47) % MCV (80-97) fL MCH (27-31) pg MCHC (31-36) g/dL RDW (10-15) % Plt Count (150-450) 10^3/uL MPV (7.4-10.4) fL Neut % (Auto) % Lymph % (Auto) % Hart % (Auto) % Eos % (Auto) % Baso % (Auto) % Absolute Neuts (auto) (1.5-7.7) 10^3/ul Absolute Lymphs (auto) (1.0-4.8) 10^3/ul Absolute Monos (auto) (0-0.8) 10^3/ul Absolute Eos (auto) (0-0.6) 10^3/ul Absolute Basos (auto) (0-0.2) 10^3/ul Absolute Nucleated RBC 10^3/ul Nucleated RBC % INR (Anticoag Therapy) (0.82-1.09) APTT (26.0-38.0) seconds Sodium (135-145) mmol/L Potassium (3.5-5.0) mmol/L Chloride (101-111) mmol/L Carbon Dioxide (22-32) mmol/L Anion Gap (2-11) mmol/L BUN (6-24) mg/dL Creatinine (0.51-0.95) mg/dL Est GFR ( Amer) (>60) Est GFR (Non-Af Amer) (>60) BUN/Creatinine Ratio (8-20) Glucose (70-100) mg/dL Calcium (8.6-10.3) mg/dL Magnesium (1.9-2.7) mg/dL Total Bilirubin (0.2-1.0) mg/dL AST (13-39) U/L ALT (7-52) U/L Alkaline Phosphatase (34-104) U/L C-Reactive Protein (<8.01) mg/L Total Protein (6.4-8.9) g/dL Albumin (3.2-5.2) g/dL Globulin (2-4) g/dL Albumin/Globulin Ratio (1-3) Amylase (29-103) U/L Lipase (11.0-82.0) U/L Urine Color Red A Urine Appearance Cloudy Urine pH 6.0 (5-9) Ur Specific [place] 1.005 L (1.010-1.030) Urine Protein 1+(30 mg/dl) A (Negative) Urine Ketones Negative (Negative) Urine Blood 3+ A (Negative) Urine Nitrate Negative (Negative) Urine Bilirubin Negative (Negative) Urine Urobilinogen Negative (Negative) Ur Leukocyte Esterase Negative (Negative) Urine WBC (Auto) 3+(>20/hpf) A (Absent) Urine RBC (Auto) 3+(>10/hpf) A (Absent) Ur Squamous Epith Cells Present A (Absent) Urine Bacteria Absent (Absent) Urine Yeast Present A (Absent) Urine Glucose Negative (Negative) Urine Ascorbic Acid * A (Negative) Result Diagrams: 10/25/18 01:32 10/25/18 01:32 Lab Statement: Any lab studies that have been ordered have been reviewed, and results considered in the medical decision making process. - CT Abd/Pel CT Interpretation Completed By: Radiologist Summary of CT Findings: IMPRESSION: 1. There is a 7 mm proximal right ureteral calculus with moderate right. obstructive uropathy. 2. Stable atherosclerotic aortic and iliac and femoral artery calcifications. There is increased size of infrarenal abdominal aortic aneurysm measuring 3.9 x. 3.3 cm and previously measured 3.6 x 2.7 cm with no signs of aneurysm rupture. These findings were reviewed by Dr. Ni. Re-Evaluation - Re-Evaluation First Eval Re-Evaluation Time: 03:30 Comment: Pt has no fever and denies fever at home Abdominal Pain Fem Course/Dx - Course Course Of Treatment: This patient is a 88 year old F presenting to [facility] accompanied by a female small arms artillery repairer with a chief complaint of right flank pain since this afternoon. Pt states she has been vomiting all day. Pt reports hematuria. She notes she was on medication for UTI. The patient rates the pain 8 /10 in severity. Symptoms aggravated by nothing. Symptoms alleviated by nothing. Physical exam shows right lower ABD tenderness. Lab results show MCH 32, MPV 6.8, INR 1.65, APTT 38.7, creatinine 1.14, magnesium 1.6, lipase 10, urine color red A, Ur specific gravity 1.005 L, urine protein 1+ A, urine blood 3+ A, urine WBC 3+ A, urine RBC 3+ A, Ur squamous epith cells present A, urine yeast present A, urine ascorbic acid A . Abd/Pel CT IMPRESSION: 1. There is a 7 mm proximal right ureteral calculus with moderate right. obstructive uropathy. 2. Stable atherosclerotic aortic and iliac and femoral artery calcifications. There is increased size of infrarenal abdominal aortic aneurysm measuring 3.9 x. 3.3 cm and previously measured 3.6 x 2.7 cm with no signs of aneurysm rupture. During ED course, pt was given Benadryl, Levaquin, morphine, fluids, and Zofran. Dx is kidney stone. Pt is agreeable to discharge and was told to follow up with Dr. Tran, urology, at 11:45 AM today. Pt was told to return to the ED for any new or worsening symptoms. - Diagnoses Provider Diagnoses: Kidney stone Is Visit Related: No Discharge - Sign-Out/Discharge Documenting (check all that apply): Patient Departure - discharge Patient Received Moderate/Deep Sedation with Procedure: No - Discharge Plan Condition: Stable Disposition: HOME Prescriptions: Levofloxacin TAB* [Levaquin TAB*] 500 mg PO DAILY #7 tab traMADol TAB* [Ultram*] 50 mg PO Q6HR PRN #20 tab MDD 4 PRN Reason: Pain Patient Education Materials: Kidney Stones (ED) Referrals: Corky Finn MD [Primary Care Provider] - Prince Tran MD [Medical Doctor] - As Soon As Possible Additional Instructions: Follow up with Dr. Tran, urology, at 11:45 AM today. Return to the ED for any new or worsening symptoms. - Attestation Statements Document Initiated by Scribe: Yes Documenting Scribe: Osvaldo Smyth Provider For Whom Scribe is Documenting (Include Credential): Dr. Emily Ni MD Scribe Attestation: I, cecil Vogeled for Dr. Emily Ni MD on 10/25/18 at 0521. Status of Scribe Document: Ready
[2018-10-25 04:18] VITALS: BP 128/88
== END 2018-10-25 04:17 | disposition home or self-care (01) ==
LOC: ED 23:33
DX: N20.0 Calculus of kidney (principal); Z88.5 Allergy status to narcotic agent; E03.9 Hypothyroidism, unspecified; I25.10 Atherosclerotic heart disease of native coronary artery without angina pectoris; E78.00 Pure hypercholesterolemia, unspecified; I10 Essential (primary) hypertension; K21.9 Gastro-esophageal reflux disease without esophagitis; I70.0 Atherosclerosis of aorta; I71.4 Abdominal aortic aneurysm, without rupture
CPT/HCPCS: 36415; 74176; 80053; 81003; 81015; 82150; 83690; 83735; 85025; 85610; 85730; 86140; 87086; 96361; 96374; 96375; 96376; 99283; J1200; J2270; J2405

== ENCOUNTER 2018-10-25 17:14 | Observation (INO) | payer MEDICARE ==
--- NOTE | 2018-10-25 18:42 | ED ---
Abdominal Pain/Female - HPI Summary HPI Summary: 88 yo female presents to [facility] with complaints of flank pain. She tells me that she was at Dr. Hardwick's office earlier today for f/u for her 7mm stone. He planned on doing a procedure for her on Saturday 10/28 and pt was discharged from his office. She went home and began to have severe increased pain. She took a percocet and laid down and felt much better. She called Dr. Hardwick's office and he instructed her to come to the ED for admission and he will perform the procedure tomorrow morning. Pt currently has only mild flank pain and denies fever, chills, n/v, dysuria, SOB, or chest pain. - History of Current Complaint Chief Complaint: EDFlankPain Stated Complaint: DR KUO IS GONNA PUT A STENT IN PER PT Time Seen by Provider: 10/25/18 18:42 Hx Obtained From: Patient Onset/Duration: Gradual Onset Severity Initially: Severe Severity Currently: Mild Pain Intensity: 3 Pain Scale Used: 0-10 Numeric Allergies/Adverse Reactions: Allergies Allergy/AdvReac Type Severity Reaction Status Date / Time Opioids - Morphine Analogues Allergy Mild Itching Verified 10/25/18 21:27 PMH/Surg Hx/FS Hx/Imm Hx Endocrine/Hematology History: Reports: Hx Thyroid Disease - HYPO, Hx Anemia Denies: Hx Diabetes Cardiovascular History: Reports: Hx Atrial Fibrillation, Hx Coronary Artery Disease - ONE CORONARY STENT SINCE 2005, Hx Hypercholesterolemia, Hx Hypertension, Other Cardiovascular Problems/Disorders - HX A FIB Denies: Hx Angina, Hx Myocardial Infarction, Hx Pacemaker/ICD, Hx Valvular Heart Disease Respiratory History: Denies: Hx Asthma, Hx Chronic Obstructive Pulmonary Disease (COPD), Other Respiratory Problems/Disorders GI History: Reports: Hx Gastroesophageal Reflux Disease Denies: Other GI Disorders History: Reports: Hx Kidney Stones - BILATERAL Denies: Hx Renal Disease - KIDNEY STONES, Other Problems/Disorders Musculoskeletal History: Reports: Hx Arthritis, Hx Back Problems Denies: Other Musculoskeletal History Sensory History: Reports: Hx Cataracts - EZEKIEL, Hx Contacts or Glasses - GLASSES, Hx Glaucoma Denies: Hx Hearing Aid Opthamlomology History: Reports: Hx Cataracts - EZEKIEL, Hx Contacts or Glasses - GLASSES, Hx Glaucoma Neurological History: Reports: Hx Migraine Denies: Other Neuro Impairments/Disorders Psychiatric History: Denies: Hx Panic Disorder - Cancer History Hx Chemotherapy: No - Surgical History Surgery Procedure, Year, and Place: 12/2014, GALLBLADDER, [facility] STENT 12/2005 [facility]. HYSTERECTOMY, [facility] BILATERAL BUNIONECTOMY-1981. TONSILECTOMY, AGE 30. APPENDECTOMY, AGE 12. RIGHT SHOULDER 1994, [facility] Hx Anesthesia Reactions: No Infectious Disease History: No Infectious Disease History: Denies: Traveled Outside the [place] in Last 30 Days - Family History Known Family History: Positive: Hypertension - Social History Alcohol Use: None Hx Substance Use: No Substance Use Type: Reports: None Hx Tobacco Use: No Smoking Status (MU): Never Smoked Tobacco Have You Smoked in the Last Year: No Review of Systems Constitutional: Negative Cardiovascular: Negative Respiratory: Negative Gastrointestinal: Negative Genitourinary: Other - Right CVA pain Neurological: Negative Psychological: Normal All Other Systems Reviewed And Are Negative: Yes Physical Exam - Summary Physical Exam Summary: GENERAL: NAD. WDWN. SKIN: No rashes, sores, or open wounds. HEENT: Head: AT/NC Eyes: PERRLA. EOM intact. Conjunctiva clear without inflammation or discharge. Ears: Hearing grossly normal. TMs intact, no bulging, erythema, or edema. Nose: Nasal mucosa pink and moist. NTTP maxillary and frontal sinus. Throat: Posterior oropharynx without exudates, erythema, or tonsillar enlargement. Uvula midline. NECK: Supple. Nontender. No lymphadenopathy. CHEST: CTAB. No r/r/w. No accessory muscle use. Breathing comfortably and in no distress. CV: Pulses intact. Brisk cap refill. ABDOMEN: Mild right CVA TTP. Soft. NTTP. No distention or guarding. Bowel sounds present NEURO: Alert. PSYCH: Age appropriate behavior. Triage Information Reviewed: Yes Vital Signs On Initial Exam: Initial Vitals Temp Pulse Resp BP Pulse Ox 98.9 F 103 18 123/88 93 10/25/18 17:17 10/25/18 17:17 10/25/18 17:17 10/25/18 17:17 10/25/18 17:17 Vital Signs Reviewed: Yes Diagnostics - Vital Signs Vital Signs Temp Pulse Resp BP Pulse Ox 10/25/18 17:17 98.9 F 103 18 123/88 93 - Laboratory Lab Results: Laboratory Tests 10/25/18 10/25/18 10/25/18 19:08 19:08 19:08 WBC 7.0 RBC 3.91 Hgb 12.2 Hct 37 MCV 95 MCH 31 MCHC 33 RDW 13 Plt Count 265 MPV 6.9 L Neut % (Auto) 41.1 Lymph % (Auto) 45.9 [place] % (Auto) 9.5 Eos % (Auto) 2.8 Baso % (Auto) 0.7 Absolute Neuts (auto) 2.9 Absolute Lymphs (auto) 3.2 Absolute Monos (auto) 0.7 Absolute Eos (auto) 0.2 Absolute Basos (auto) 0.0 Absolute Nucleated RBC 0.0 Nucleated RBC % 0.1 Sodium 137 Potassium 4.3 Chloride 106 Carbon Dioxide 23 Anion Gap 8 BUN 12 Creatinine 1.22 H Est GFR ( Amer) 50.3 Est GFR (Non-Af Amer) 41.6 BUN/Creatinine Ratio 9.8 Glucose 98 Lactic Acid 0.8 Calcium 9.1 Total Bilirubin 0.60 AST 25 ALT 19 Alkaline Phosphatase 121 H Total Protein 6.1 L Albumin 3.7 Globulin 2.4 Albumin/Globulin Ratio 1.5 Result Diagrams: 10/25/18 19:08 10/25/18 19:08 Lab Statement: Any lab studies that have been ordered have been reviewed, and results considered in the medical decision making process. - CT IMPRESSION: CT Interpretation Completed By: Radiologist - Visit from early this morning Summary of CT Findings: IMPRESSION: 1. There is a 7 mm proximal right ureteral calculus with moderate right. obstructive uropathy. 2. Stable atherosclerotic aortic and iliac and femoral artery calcifications. There is increased size of infrarenal abdominal aortic aneurysm measuring 3.9 x. 3.3 cm and previously measured 3.6 x 2.7 cm with no signs of aneurysm rupture. Abdominal Pain Fem Course/Dx - Course Course Of Treatment: She was not given any medications in the ED course as her pain was mild and VSS. Pt will be admitted to the hospitalist service for pre- op clearance for procedure tomorrow morning with Dr. Hardwick. - Diagnoses Provider Diagnoses: Ureteral calculi - Provider Notifications Discussed Care Of Patient With: Lorena Rosales Instructed by Provider To: Admit As Inpatient Discharge - Sign-Out/Discharge Documenting (check all that apply): Patient Departure All imaging exams completed and their final reports reviewed: No Studies Patient Received Moderate/Deep Sedation with Procedure: No - Discharge Plan Condition: Stable Disposition: ADMITTED TO [facility] - Billing Disposition and Condition Condition: STABLE Disposition: Admitted to [facility]
[2018-10-25] MEDS ORDERED: cefTRIAXone(*) 2 GM in NS 0.9% 50 ML* 50 ML IVPB ONE (18:55)
[2018-10-25 19:17] LABS: ABS Eosinophils 0.2 10^3/ul (0-0.6); ABS Lymphocytes 3.2 10^3/ul (1.0-4.8); ABS Monocytes 0.7 10^3/ul (0-0.8); ABS Neutrophils 2.9 10^3/ul (1.5-7.7); Eosinophil % 2.8 %; Hematocrit 37 % (35-47); Hemoglobin 12.2 g/dL (12.0-16.0); Lymphocyte % 45.9 %; Mean Corpuscular HGB Conc 33 g/dL (31-36); Mean Corpuscular Hemoglobin 31 pg (27-31); Mean Corpuscular Volume 95 fL (80-97); Mean Platelet Volume 6.9 fL (7.4-10.4); Nucleated Red Blood Cells % 0.1; Platelet Count 265 10^3/uL (150-450); Red Blood Count 3.91 10^6 /uL (3.70-4.87); Red Cell Distribution Width 13 % (10-15)
[2018-10-25 19:45] LABS: Albumin 3.7 g/dL (3.2-5.2); BUN/Creatinine Ratio 9.8 (8-20); Calcium 9.1 mg/dL (8.6-10.3); EGFR African American 50.3 (>60); EGFR Non-African American 41.6 (>60); Potassium 4.3 mmol/L (3.5-5.0); Total Bilirubin 0.6 mg/dL (0.2-1.0)
[2018-10-25] MEDS ORDERED: Senna TAB PO PRN (20:44)
[2018-10-25] MEDS ORDERED: Al Hydrox/Mg Hydrox/Simet LIQ* 30 ML UDC PO PRN (20:44)
[2018-10-25] MEDS ORDERED: Acetaminophen TAB* 325 MG PO PRN (20:44)
[2018-10-25] MEDS ORDERED: Morphine INJ* 2 MG/ML 1 ML SYRINGE (TWO MG - NEW SYRINGE VERSION) IV PRN (20:44)
[2018-10-25] MEDS ORDERED: oxyCODONE/Acetamin 5/325 MG* TAB PO PRN (20:44)
[2018-10-25] MEDS ORDERED: Ondansetron INJ* 2 MG/ML VIAL IV PRN (20:44)
[2018-10-25 20:59] LABS: Albumin/Globulin Ratio 1.5 (1-3); Globulin 2.4 g/dL (2-4); Total Protein 6.1 g/dL (6.4-8.9)
[2018-10-25] MEDS ORDERED: Diazepam TAB(*) 5 MG PO PRN (21:09)
[2018-10-25] MEDS ORDERED: Nitroglycerin TAB 0.4 MG* 0.4 MG TAB SL PRN (21:09)
[2018-10-25] MEDS ORDERED: diPHENhydraMINE PO* 25 MG PO PRN (21:09)
[2018-10-25] MEDS: NS 0.9% 1000 ML** 1,000 ML IV SCH (21:17)
[2018-10-25] MEDS ORDERED: Atorvastatin* 20 MG TAB PO SCH (22:00)
--- NOTE | 2018-10-25 22:54 | HP ---
HISTORY AND PHYSICAL: ADDENDUM: The patient's surrogate medical decision maker should she need one is her daughter, Kirsten Jessica, whose phone number is [phone] or her son, Toño Hernandez, his phone number is [phone]. The patient's EKG demonstrates atrial fibrillation, which the patient is known to have which is rate controlled. She does have inverted T waves in leads V1 and flattened T waves in lead V2, which is unchanged from prior EKG. MAGGIE RADFORD [id number]/[facility] #: [id number] MTDTisha
[2018-10-25] MEDS: Metoprolol Succinate XL TAB* 25 MG PO SCH (22:55)
--- NOTE | 2018-10-25 23:37 | HP ---
ADDENDUM NOW INCLUDED ON THIS REPORT HISTORY AND PHYSICAL: DATE OF ADMISSION: 10/25/18 PRIMARY CARE PROVIDER: Dr. Finn. PROVIDER: MAGGIE Moran ATTENDING PHYSICIAN: Dr. Mark Brito * (dictated by MAGGIE Moran). CONSULTING UROLOGIST: Dr. Tran. CHIEF COMPLAINT: Right flank pain. HISTORY OF PRESENT ILLNESS: Lynette Hess is an 88-year-old female with past medical history significant for coronary artery disease, atrial fibrillation, hypothyroidism, hypertension, hyperlipidemia, chronic low back pain, and history of nephrolithiasis, who presents to the emergency department due to right flank pain upon direction of Dr. Tran. Of note, the patient was brought to the emergency room overnight yesterday and left the emergency department very early this morning because she had resolution of this right flank pain, which had originally started yesterday. Dr. Tran was consulted in the emergency department and recommended the patient see him in the office early this morning today. The patient did see him and again was still symptom free. Then, at approximately 4 o'clock this afternoon, her right-sided flank pain recurred and was severe and she reported to the emergency department per Dr. Tran's request. The patient has had hematuria for the last 2 days. The patient was nauseous and vomiting yesterday but this has not occurred today. The patient admits that she was not well hydrated today, having only had approximately 1 glass of water and then falling asleep. She was prescribed levofloxacin by Dr. Tran's office but has not yet taken a dose because she has been in the emergency department today. Additionally, she was prescribed Percocet for this pain and took 1 tablet at home prior to coming to the emergency department and felt that improved her pain greatly. Of note, the patient was prescribed Bactrim by Dr. Stephens, a 7-day course, that was finished approximately 2 days ago for UTI. In the emergency department during this visit, the patient arrived with vital signs 98.9 degrees Fahrenheit, pulse 103, respiratory rate 18, oxygen saturation 93% on room air, blood pressure 132/ 88. She received 1 dose of ceftriaxone [address] Tran's recommendation and the hospitalists were asked to evaluate the patient for admission. The patient denies fever, chills, chest pain, difficulty breathing, abdominal pain, dysuria , diarrhea, constipation. The patient reports she does get short of breath after walking 1 block. PAST MEDICAL HISTORY: 1. Coronary artery disease, status post stent in 2005 in the [facility]. 2. Atrial fibrillation. 3. GERD. 4. Hypertension. 5. Hyperlipidemia. 6. Hypothyroidism. 7. History of anxiety. 8. Chronic low back pain. 9. History of nephrolithiasis, status post 3 lithotripsies, 2 of which were in [place]. PAST SURGICAL HISTORY: 1. Bunionectomy. 2. Appendectomy in childhood. 3. Cholecystectomy in 2005. 4. Tonsillectomy. 5. Hysterectomy (without oophorectomy). 6. Right shoulder rotator cuff repair. MEDICATIONS: Home medications: 1. Biotin 1000 mcg p.o. b.i.d. 2. Lipitor 20 mg p.o. daily. 3. Vitamin C 1000 mg p.o. daily. 4. Eliquis 5 mg p.o. b.i.d. 5. FiberCon 625 mg p.o. b.i.d. 6. Fish oil 1200 mg p.o. b.i.d. 7. Nitroglycerin 0.4 mg sublingual q.5 minutes p.r.n. angina. 8. Metoprolol succinate 25 mg p.o. b.i.d. 9. Synthroid 25 mcg p.o. q.a.m. 10. Diazepam 5 mg p.o. at bedtime p.r.n. anxiety. 11. Diltiazem 30 mg p.o. b.i.d. 12. Benadryl 25 mg p.o. daily p.r.n. allergy symptoms. 13. Zinc gluconate 30 mg p.o. daily. 14. Tramadol 50 mg p.o. q.6 hours p.r.n. back pain. ALLERGIES: Of note, the patient has no anaphylaxis to medications but note itching without hives to most OPIATES, which resolves with Benadryl. FAMILY HISTORY: The patient's father at age 53 due to suicide and he had history of alcohol use disorder. Mother at age 79 due to AR. Son at age 58 due to CVA and he had a history of diabetes. SOCIAL HISTORY: The patient is a and she lives with her granddaughter. She is a retired medical radiation therapist. She has 5 children. She denies tobacco use, alcohol use, and drug use. She has never been a smoker. REVIEW OF SYSTEMS: An 11-point review of systems was completed and all pertinent positives and negatives are above in the HPI. All other systems are negative. PHYSICAL EXAMINATION GENERAL: Thin, white, elderly female, lying comfortably in hospital bed, appearing in no acute distress. Daughter is at bedtime. HEENT: Head: Normocephalic, atraumatic. Eyes: PERRL. Sclerae anicteric. ENT: Lips moderately dry. NECK: Supple without JVD. LUNGS: Crackles in bilateral lung bases. CARDIO: Irregularly irregular rhythm consistent with atrial fibrillation. No murmurs or rubs appreciated. ABDOMEN: Normoactive bowel sounds x4 quadrants. No hepatosplenomegaly. Abdomen is soft, nontender, and nondistended. No CVA tenderness bilaterally. EXTREMITIES: No clubbing, cyanosis, or edema. NEUROLOGIC: No focal deficits. Alert and oriented x4. Able to move all extremities. PSYCH: Cooperative and pleasant. SKIN: Trace petechiae noted in bilateral lower extremities. Otherwise warm, dry, and intact. DIAGNOSTIC STUDIES/LAB DATA: Lab data from today at approximately 1900, white blood cell count 7, hemoglobin 12.2, hematocrit 37, platelet count 265. Sodium 137, potassium 4.3, chloride 106, carbon dioxide 23, BUN 12, creatinine 1.22, glucose 98, lactic acid 0.8. Urinalysis from the emergency department visit yesterday with urinalysis from today's date at 2 a.m., urine color red, 3+ blood , negative leukocyte esterase, 3+ white blood cells, 3+ red blood cells, squamous epithelial cells present, bacteria absent, yeast present, ascorbic acid negative. Ultrasound KUB: 1.8-cm simple cyst, mid pole right kidney. No suspicious right or left renal lesions evident. No conspicuous urolithiasis or hydronephrosis. CT abdomen and pelvis: There is a 7-mm proximal right ureteral calculus with moderate right obstructive uropathy. Stable atherosclerotic aortic and iliac and femoral artery calcifications. There is increased size of infrarenal abdominal aortic aneurysm measuring 3.9 x 3.3 cm measured 3.6 x 2.7 cm with no signs of aneurysm rupture. ASSESSMENT AND PLAN: Lynette Hess is an 88-year-old white female with past medical history significant for coronary artery disease, atrial fibrillation, anxiety, history of nephrolithiasis, hypothyroidism, who presents to the emergency department with flank pain, who will be admitted OBV for: 1. Ureteral stone. The patient's CT abdomen and pelvis demonstrates ureteral stone. There is no associated hydronephrosis. The patient was previously with resolution of symptoms and was planned to have outpatient procedure; however, due to her recurrence of pain is presenting today and Dr. Tran plans to place right ureter stent tomorrow morning. Therefore, the patient will be placed n.p.o. after midnight. She received 1 dose of 2 g Rocephin for empiric coverage. She does have an associated acute kidney injury with her creatinine elevated, which is likely postrenal acute kidney injury. I will give her IV normal saline 100 mL/hour. I am holding her home Eliquis per Dr. Tran's recommendation in case the patient needs lithotripsy on 10/28/18. The patient is not fully anticoagulated at this point because she did last take her Eliquis this morning; however, this is not a contraindication to perform stent placement per Dr. Tran. I will continue p.r.n. Tylenol, Percocet, and for breakthrough pain IV morphine and p.r.n. Benadryl given the patient developing itch to these medications. Regarding perioperative risk, the patient has RCRI risk score of 1 indicating 6.0% for risk of and myocardial arrest. Of note, the patient states that she has shortness of breath when walking 1 block. She did have an echocardiogram last month, which demonstrated a normal ejection fraction though some mild thickening to left ventricle wall though she did not meet criteria for diastolic dysfunction either. 2. Atrial fibrillation. I am holding patient's home Eliquis as previously mentioned. Continue the patient's home metoprolol, diltiazem. 3. Coronary artery disease. Continue the patient's home Lipitor and metoprolol. 4. Hypothyroidism. Continue the patient's home Synthroid. 5. Hypertension. Does not appear the patient takes antihypertensive medications at home and we will continue to monitor this. 6. FEN: The patient may have a heart-healthy meal this evening and will be n.p.o. after midnight. 7. Code status: The patient is full code. 8. DVT prophylaxis: The patient has a DVT risk score of 3; however, given her procedure which will be performed at 8:45 tomorrow, I will not give anticoagulation at this time and will give the patient SCDs. TIME SPENT: Approximately 50 minutes was spent on this admission, approximately half this time was spent at bedside. This case has been reviewed with my attending, Dr. Mark Brito, and he agrees with this assessment and plan. MAGGIE MORAN ADDENDUM: The patient's surrogate medical decision maker should she need one is her daughter, Kirsten Jessica, whose phone number is [phone] or her son, Toño Hernandez, his phone number is [phone]. The patient's EKG demonstrates atrial fibrillation, which the patient is known to have which is rate controlled. She does have inverted T waves in leads V1 and flattened T waves in lead V2, which is unchanged from prior EKG. MAGGIE MORAN [id number]/[facility] #: [id number]/[facility] #: [id number] MIKEY
[2018-10-26] MEDS ORDERED: Levothyroxine TAB* 25 MCG TAB PO SCH (06:00)
[2018-10-26] MEDS: NS 0.9% 1000 ML** 1,000 ML IV SCH (06:27)
[2018-10-26 07:19] LABS: ABS Basophils 0.1 10^3/ul (0-0.2); ABS Eosinophils 0.3 10^3/ul (0-0.6); ABS Lymphocytes 3.1 10^3/ul (1.0-4.8); ABS Monocytes 0.7 10^3/ul (0-0.8); ABS Neutrophils 2.5 10^3/ul (1.5-7.7); Eosinophil % 4.3 %; Hematocrit 36 % (35-47); Hemoglobin 11.9 g/dL (12.0-16.0); Lymphocyte % 46.7 %; Mean Corpuscular HGB Conc 34 g/dL (31-36); Mean Corpuscular Hemoglobin 32 pg (27-31); Mean Corpuscular Volume 95 fL (80-97); Mean Platelet Volume 7.3 fL (7.4-10.4); Nucleated Red Blood Cells % 0.1; Platelet Count 224 10^3/uL (150-450); Red Blood Count 3.75 10^6 /uL (3.70-4.87); Red Cell Distribution Width 13 % (10-15); White Blood Count 6.7 10^3/uL (3.5-10.8)
[2018-10-26 07:31] LABS: Calcium 8.6 mg/dL (8.6-10.3); Potassium 4.6 mmol/L (3.5-5.0)
[2018-10-26 07:37] LABS: BUN/Creatinine Ratio 11.5 (8-20); EGFR African American 46.4 (>60); EGFR Non-African American 38.3 (>60)
[2018-10-26] MEDS: Metoprolol Succinate XL TAB* 25 MG PO SCH (08:20)
[2018-10-26] MEDS: Calcium Polycarbophil TAB* 625 MG PO SCH ×2 (08:36→12:51)
[2018-10-26] MEDS ORDERED: Diltiazem TAB* 30 MG PO SCH (09:00)
--- NOTE | 2018-10-26 09:07 | PN ---
Subjective Date of Service: 10/26/18 Interval History: Ms. Hess reports some dysuria which is new since martinez catheter removed. She denies other complaint and is eager for discharge to home. She is up independently ambulating to the bathroom with good urine output. She denies back or flank pain. She further denies chest pain, SOB, or nausea. She is tolerating oral intake. Objective Active Medications: Acetaminophen (Tylenol Tab*) 650 mg PO Q4H PRN Al Hydrox/Mg Hydrox/Simethicone (Maalox Plus*) 30 ml PO Q6H PRN Ascorbic Acid (Vitamin C Tab*) 1,000 mg PO 1200 SOPHIA Atorvastatin Calcium (Lipitor*) 20 mg PO QPM SOPHIA Calcium Polycarbophil (Fibercon Tab*) 625 mg PO BID SOPHIA Diazepam (Valium Tab(*)) 5 mg PO BEDTIME PRN Diltiazem HCl (Cardizem Tab*) 30 mg PO BID SOPHIA Diphenhydramine HCl (Benadryl Po*) 25 mg PO DAILY PRN Sodium Chloride (Ns 0.9% 1000 Ml) 1,000 mls @ 100 mls/hr IV PER RATE SOPHIA Levothyroxine Sodium (Synthroid Tab*) 25 mcg PO QAM@0600 SOPHIA Metoprolol Succinate (Toprol Xl Tab*) 25 mg PO BID SOPHIA Morphine Sulfate (Morphine Inj (Syringe))*) 2 mg IV Q4H PRN Nitroglycerin (Nitroglycerin Tab 0.4 Mg*) 0.4 mg SL Q5M PRN Ondansetron HCl (Zofran Inj*) 4 mg IV Q4H PRN Oxycodone/Acetaminophen (Percocet 5/325 Tab*) 1 tab PO Q4H PRN Senna (Senokot Tab*) 1 tab PO BID PRN Vital Signs: Temp Pulse Resp BP Pulse Ox 99.5 F 115 16 126/53 95 10/26/18 07:15 10/26/18 07:15 10/26/18 07:15 10/26/18 07:15 10/26/18 07:15 Oxygen Devices in Use Now: None Appearance: Female lying in bed in NAD Eyes: No Scleral Icterus Ears/Nose/Mouth/Throat: Mucous Membranes Moist Neck: Trachea Midline Respiratory: Symmetrical Chest Expansion and Respiratory Effort, Clear to Auscultation Cardiovascular: NL Sounds; No Murmurs; No JVD, No Edema Abdominal: NL Sounds; No Tenderness; No Distention Lymphatic: No Cervical Adenopathy Extremities: No Edema Skin: No Rash or Ulcers Neurological: Alert and Oriented x 3, NL Muscle Strength and Tone Nutrition: Taking PO's Result Diagrams: 10/26/18 06:30 10/26/18 06:30 Assess/Plan/Problems-Billing Assessment: Ms. Hess is an 88 yo F with a PMH of afib, HTN, HLD who was admitted on with onstructive uropathy with plan for ureteral stent with Dr. Tran this morning. - Patient Problems (1) Obstructive uropathy Comment: - S/p ureteral stent with Dr Tran this AM - Dr Tran had left martinez in place as he was concerned about low urine output. Likely due to dehydration as patient has had over 600ml out since returning from procedure. Martinez removed, voiding independently, adequate amounts. - No evidence of infection, most recent urine culture negative, most recent UA negative (2) Afib Comment: - HR 110s this AM - Start telemetry monitoring - Patient to be given home metoprolol and cardizem now, monitor - Hold eliquis (3) CAD (coronary artery disease) Comment: - Asymptomatic - Continue metoprolol, atorvastatin (4) HTN (hypertension) Comment: - BP well-controlled - Continue diltiazem and metoprolol. (5) HLD (hyperlipidemia) Comment: - Continue atorvastatin (6) Hypothyroidism Comment: - Continue levothyroxine (7) DVT prophylaxis Comment: - SCDs pending procedure in OR (8) Full code status Comment: Status and Disposition: OBV. Discharge to home.
[2018-10-26] MEDS ORDERED: Midazolam* 1 MG/ML 5 ML VIAL (5 MG) ONE (09:09)
[2018-10-26] MEDS ORDERED: fentaNYL* 50 MCG/ML 2 ML VIAL (100 MCG VIAL) ONE (09:25)
[2018-10-26] MEDS ORDERED: Propofol* 10 MG/ML 20 ML BTL ONE (09:26)
[2018-10-26] MEDS ORDERED: Lidocaine 2% PF * 5 ML VIAL ONE (09:26)
[2018-10-26] MEDS ORDERED: Ondansetron INJ* 2 MG/ML VIAL ONE (09:26)
[2018-10-26] MEDS ORDERED: Acetaminophen TAB* 325 MG PO PRN (10:07)
--- NOTE | 2018-10-26 11:08 | OP ---
CC: Dr. Finn * DATE OF OPERATION: 10/26/18 - ROOM #403 DATE OF : 07[birth year]31/30 SURGEON: Dr. Tran. ANESTHESIOLOGIST: Dr. Castaneda. ANESTHESIA: Intravenous sedation. PRE-OP DIAGNOSES: 1. Right hydronephrosis. 2. Obstructing calculus, right proximal ureter. POST-OP DIAGNOSES: 1. Right hydronephrosis. 2. Obstructing calculus, right proximal ureter. OPERATIVE PROCEDURES: 1. Cystoscopy. 2. Right retrograde pyelogram. 3. Right ureteral calculus manipulation. 4. Right stent insertion. COMPLICATIONS: None. STENT USED: A 7-Burundian stent, right ureter. POSTOPERATIVE CONDITION: Stable. OPERATIVE FINDINGS: Right hydronephrosis secondary to obstructing calculus, right proximal ureter. INDICATIONS: Lynette Hess is an 88-year-old lady who was evaluated for an obstructing calculus in the right proximal ureter. She is being brought in for urgent right stent insertion and will likely require lithotripsy at a later date once she can be off the anticoagulants temporarily. DESCRIPTION OF PROCEDURE: After induction of intravenous sedation, the patient was placed in dorsal lithotomy position. Sequential compression devices were in place and functioning. Initial cystoscopy revealed fairly empty bladder with only about 10 cc of urine in the bladder. There was no evidence of any suspicious bladder lesions noted. The right orifice was cannulated and retrograde pyelogram revealed moderate right hydronephrosis secondary to an obstructing calculus in the proximal right ureter. Using the open-ended catheter, the calculus was carefully manipulated proximally, following which there was some drainage of urine from the right kidney noted. A 7-Burundian stent was introduced and positioned under fluoroscopy with good proximal and distal positioning obtained. I noticed at the end of the procedure that there was still not a whole lot of urine output, so I decided to place a Hernandez catheter, size 18-Burundian in an effort to monitor her urine output. The patient tolerated the procedure satisfactorily and was transferred back to the recovery area in stable condition. [id number]/[facility] #: [id number] MTDD
[2018-10-26] MEDS ORDERED: Ascorbic Acid TAB* 500 MG PO SCH (12:00)
[2018-10-26] MEDS ORDERED: LR @ 40 MLS/HR IV SCH (13:00)
[2018-10-26 14:02] LABS: Urine Appearance Cloudy; Urine Bacteria Absent (Absent); Urine Bilirubin Negative (Negative); Urine Blood 3+ (Negative); Urine Color Red; Urine Glucose Negative (Negative); Urine Ketones Negative (Negative); Urine Nitrite Negative (Negative); Urine Protein 2+(100 mg/dL) (Negative); Urine Red Blood Cell 3+(>10/hpf) (Absent); Urine Specific Gravity 1.013 (1.010-1.030); Urine Urobilinogen Negative (Negative); Urine White Blood Cell Absent (Absent)
[2018-10-26 15:29] VITALS: BP 103/64
--- NOTE | 2018-10-26 19:54 | DS ---
CC: Dr. Finn; Dr. Tran * [facility] MEDICINE DISCHARGE SUMMARY: DATE OF ADMISSION: 10/25/18 DATE OF DISCHARGE: 10/26/18 PRIMARY CARE PHYSICIAN: Dr. Finn. UROLOGIST: Dr. Tran. ATTENDING PHYSICIAN: Dr. Geoff Qureshi * (dictation provided by Cate Lopez NP). PRIMARY DIAGNOSIS: Obstructive uropathy, status post ureteral stenting. SECONDARY DIAGNOSES: 1. Coronary artery disease, status post stent in 2005 to the LAD. 2. Atrial fibrillation. 3. Gastroesophageal reflux disease. 4. Hypertension. 5. Hyperlipidemia. 6. Hypothyroidism. 7. History of anxiety. 8. Chronic low back pain. 9. History of nephrolithiasis, status post 3 lithotripsies, 2 of which were in [place]. PAST SURGICAL HISTORY: Bunionectomy, appendectomy in childhood, cholecystectomy in 2005, tonsillectomy, hysterectomy without oophorectomy, and right shoulder rotator cuff repair. MEDICATIONS AT THE TIME OF DISCHARGE: 1. Atorvastatin 20 mg p.o. q.p.m. 2. Biotin 1000 mcg p.o. b.i.d. 3. Ascorbic acid 1000 mg p.o. at noon. 4. Apixaban 5 mg p.o. b.i.d. 5. FiberCon tab 625 mg p.o. b.i.d. 6. Fish oil 1200 mg 1 cap p.o. b.i.d. 7. Nitroglycerin sublingually as needed. 8. Metoprolol succinate 25 mg p.o. b.i.d. 9. Levothyroxine 25 mcg p.o. q.a.m. 10. Diazepam 5 mg p.o. at bedtime p.r.n. 11. Diltiazem 30 mg p.o. b.i.d. 12. Benadryl 25 mg p.o. daily p.r.n. 13. Zinc gluconate 30 mg p.o. at noon. 14. Tramadol 50 mg p.o. q.6 hours p.r.n. for pain. HOSPITAL COURSE: Ms. Hess is an 88-year-old female with a past medical history as outlined above who presented to the emergency room at the request of Dr. Tran on 10/25/18 out of concern for ongoing pain related to obstructive uropathy. Please see the dictated H and P from MAGGIE Moran, for complete details. In brief, the patient had been into the emergency room on with concern for flank pain. At that time, she had a CT abdomen and pelvis, which showed the following: "There is a 7 mm right ureteral calculus with moderate right obstructive uropathy." The patient was discharged from the ED to follow up with Dr. Tran in the office at 11:45 yesterday morning. The patient did so and was felt to be stable; however, after returning back home after that appointment, she again developed severe pain and was asked to come to the emergency room to be admitted to the hospital for more urgent stent placement. At the time of her return on 10/25/18, her white blood cell count was normal, she was afebrile, her vital signs were stable. She had a chest x- ray, which showed "no active cardiopulmonary disease is noted." Ms. Hess was taken to the OR today by Dr. Tran for ureteral stent placement on the right. I refer you to his documentation, which is not available yet, for complete details. I did speak to Dr. Tran on the phone and he states that the patient tolerated the procedure well with no complications, other than the fact that he noted that she had low urine output during the procedure. Our suspicion is that she was dehydrated. This is corroborated by the fact that the patient reported poor oral intake prior to admission. In addition, the patient had been given intravenous fluids and with this, her urine output is now normal. She had a Hernandez placed after the procedure, which has now been removed. She is up independently ambulating in her room, with good urine output. She is tolerating oral intake. Ms. Hess is medically stable for discharge to home. She has no evidence of infection with this stone. Again white blood cell count is normal, she is afebrile, she has no leuk esterase or nitrites in her urine. She had been treated with ceftriaxone on arrival and Dr. Tran did not indicate that further antibiotics were needed. DISCHARGE CONDITION: Ms. Hess is medically stable for discharge. DISPOSITION: Home. DIET: Heart healthy. ACTIVITY: As tolerated. FOLLOWUP PLANS: 1. Please follow up with Dr. Tran and the patient has been asked to call Sunday a.m. for an appointment. 2. Please follow up with Dr. Finn. The patient has been asked to call Sunday a.m. for an appointment within the next week. TIME SPENT: Approximately 60 minutes were spent on the discharge of this patient, more than half the time was spent with the patient at the bedside reviewing the events leading up to this hospitalization, performing the physical examination, and reviewing the plan of care. CATE LOPEZ NP [id number]/CPS #: [id number] MIKEY
== END 2018-10-26 16:30 | disposition home or self-care (01) ==
LOC: ED 17:14 → MED 20:44
PROVIDERS: ADMIT Internal Medicine; ATTEND Internal Medicine
DX: N13.9 Obstructive and reflux uropathy, unspecified (principal); N13.2 Hydronephrosis with renal and ureteral calculous obstruction; I25.10 Atherosclerotic heart disease of native coronary artery without angina pectoris; Z95.5 Presence of coronary angioplasty implant and graft; I48.91 Unspecified atrial fibrillation; K21.9 Gastro-esophageal reflux disease without esophagitis; I10 Essential (primary) hypertension; E78.5 Hyperlipidemia, unspecified; E03.9 Hypothyroidism, unspecified; G89.29 Other chronic pain; M54.5 Low back pain; Z87.442 Personal history of urinary calculi; Z79.899 Other long term (current) drug therapy; Z79.01 Long term (current) use of anticoagulants; F41.9 Anxiety disorder, unspecified
CPT/HCPCS: 36415; 71045; 74018; 74420; 80048; 80053; 81003; 81015; 83605; 85025; 87086; 93005; 96365; 99284; A9270-GY; C1876; G0378; J0696; J2250; J2405; J2704; J3010

== ENCOUNTER → 2018-11-04 06:52 | Day surgery (SDC) | payer MEDICARE ==
[~2018-11-04 06:52] MED LIST: Buffered Lidocaine 1% SYRIN* 1 ML/SYRINGE INTRADERM ONE; Dexamethasone IV* 4 MG/ML 1 ML (4 MG) ONE; Famotidine IV* 10 MG/ML 2 ML (20 mg) IV ONE; Famotidine IV* 10 MG/ML 2 ML (20 mg) ONE; Furosemide IV* 10 MG/ML 2 ML VIAL (20 MG) ONE; KETAMINE HCL* 50 MG/ML 10 ML VIAL ONE; Lactated Ringers 1000 ML Bag* 1,000 ML IV SCH; Lidocaine 2% PF * 5 ML VIAL ONE; Midazolam* 1 MG/ML 5 ML VIAL (5 MG) ONE; Naloxone* 0.4 MG/ML 1 ML VIAL IV PRN; Ondansetron INJ* 2 MG/ML VIAL IV PRN; Ondansetron INJ* 2 MG/ML VIAL ONE; Phenylephrine 40 MCG/ML SYRINGE ONE; Propofol* 10 MG/ML 20 ML BTL ONE; cefTRIAXone(*) 2 GM ADDV.VIAL IVPB ONE; fentaNYL* 50 MCG/ML 2 ML VIAL (100 MCG VIAL) IV PRN; fentaNYL* 50 MCG/ML 2 ML VIAL (100 MCG VIAL) ONE
[2018-11-04 11:40] VITALS: BP 101/73
--- NOTE | 2018-11-04 12:00 | OP ---
CC: Dr. Corky Finn * DATE OF OPERATION: 11/04/18 - [facility] DATE OF : [birth year] SURGEON: Prince Tran MD. ANESTHESIOLOGIST: Dr. Moses. ANESTHESIA: General. PRE-OP DIAGNOSIS: Right renal calculus. POST-OP DIAGNOSIS: Right renal calculus. OPERATIVE PROCEDURE: Shockwave lithotripsy of right renal calculus. COMPLICATIONS: None. POSTOPERATIVE CONDITION: Stable. OPERATIVE FINDINGS: Right renal calculus. INDICATION: Lynette Hess is an 88-year-old lady who had undergone urgent right stent insertion because of an obstructing calculus in the right proximal ureter. She is now being brought in for shockwave lithotripsy of the same. DESCRIPTION OF PROCEDURE: After induction of general anesthesia, the patient was placed on the lithotripsy table in the supine position. The calculus which was now in the area of the renal pelvis on the right side was visualized using fluoroscopy and shockwave lithotripsy was commenced at a rate of 60 shocks per minute. After the initial 300 shocks, there was a pause in lithotripsy for several minutes in an effort to minimize any potential trauma to the kidney. Lithotripsy was then resumed and periodic imaging revealed good localization and fragmentation. A total of 2200 shocks were administered. The patient tolerated the procedure satisfactorily and was transferred back to the recovery area in stable condition. [id number]/CPS #: [id number] MTDD
== END | disposition home or self-care (01) ==
LOC: OR 06:52
PROVIDERS: ATTEND Urology
DX: N20.0 Calculus of kidney (principal); I10 Essential (primary) hypertension; I48.91 Unspecified atrial fibrillation; I25.10 Atherosclerotic heart disease of native coronary artery without angina pectoris; Z95.5 Presence of coronary angioplasty implant and graft; E03.9 Hypothyroidism, unspecified; Z79.01 Long term (current) use of anticoagulants
CPT/HCPCS: 74018; J0696; J1100; J1940; J2250; J2405; J2704; J3010